=== PATIENT | female | born 1975 | race Caucasian/White ===

== ENCOUNTER 2017-10-22 08:56 | Inpatient (IN) | payer SELFPAY ==
[~2017-10-22] VITALS: Ht 157.5 cm; Wt 91.7 kg
[~2017-10-22 08:56] MED LIST: COUG100S2 PO; DUONSOL2 NEB; IBUP800T23 PO
[2017-10-22 08:57] VITALS: BP 140/88; PULSE 88; RESP 16; TEMP 98.7; O2SAT 98
--- NOTE | 2017-10-22 09:41 | PD ---
HPI Chief Complaint: Skin Problem Time Seen by Provider: 09:34 Travel History International Travel<30 days: No Contact w/Intl Traveler<30days: No Traveled to known affect area: No History of Present Illness HPI Diagnoses a 42-year-old female with a history of previous MRSA infections, presents today with complaints of right hand swelling, pain and redness starting 2 days ago. Patient states that she was scratched by her cat on . She states that yesterday it was slightly swollen however today it's almost doubled in size. Short's pain redness and swelling. There is no reported fevers, chills. The patient states she's had previous MRSA infections in the past. She denies any IVD drug use. She does give history that she did drink some alcohol as well as snorted a small amount of cocaine. She is unsure of her last tetanus immunization. PFSH Past Medical History Asthma: Yes Autoimmune Disease: No Anxiety: Yes Depression: Yes Cancer: Yes (CERVICAL,ENDOMETRIOSIS) Cardiovascular Problems: No COPD: Yes Diminished Hearing: No Hepatitis: Yes (c) Immune Disorder: No Musculoskeletal: Yes (CHRONIC LOW BACK PAIN) Psychiatric: Yes Reproductive: Yes Respiratory: Yes Integumentary: Yes (MRSA) ?: Not : 8 Para: 1 Miscarriage: 6 : 4 Dilation and Curettage (D&C): Yes Past Surgical History Abdominal Surgery: Yes (gall baldder removed) Cardiac Surgery: No Cholecystectomy: Yes Gynecologic Surgery: Yes Other Surgery: Yes Social History Alcohol Use: No Tobacco Use: Yes (1/2 PPD) Substance Use: Yes Allergies-Medications (Allergen,Severity, Reaction): Coded Allergies: Sulfa (Sulfonamide Antibiotics) (Unverified Allergy, Severe, SWELLING, ) morphine (Unverified Allergy, Severe, HIVES-SOB, 07/12/17) penicillin G (Unverified Allergy, Severe, SWELLING, 07/12/17) *MDRO Multi-Drug Resistant Organism (Verified Allergy, Unknown, 01/04/16) MRSA Reported Meds & Prescriptions Reported Meds & Active Scripts Active Robitussin (Guaifenesin) 100 Mg/5 Ml Syrp 5 Ml PO Q4H PRN 5 Days Ibuprofen 800 Mg Tab 800 Mg PO TID PRN 5 Days Reported Resp: Albuterol 2.5 Mg/Ipratropium 0.5 Mg (Albuterol/Ipratropium) 1 Amp Nebu 1 Amp NEB Review of Systems Except as stated in HPI: all other systems reviewed are Neg General / Constitutional: No: Fever, Chills HENT: No: Headaches, Lightheadedness, Neck Pain Cardiovascular: No: Chest Pain or Discomfort, Palpitations Respiratory: No: Cough, Shortness of Breath Gastrointestinal: No: Nausea, Vomiting, Abdominal Pain Genitourinary: No: Frequency, Dysuria Musculoskeletal: Positive: Edema (right hand), Pain Neurologic: No: Weakness, Dizziness, Headache Psychiatric: Positive: Substance Abuse Physical Exam Narrative GENERAL: Well-nourished, well-developed patient. SKIN: Focused skin assessment warm/dry. HEAD: Normocephalic/atraumatic. EYES: No scleral icterus. No injection or drainage. NECK: Supple, trachea midline. No JVD or lymphadenopathy. CARDIOVASCULAR: Regular rate and rhythm without murmurs, gallops, or rubs. RESPIRATORY: Breath sounds equal bilaterally. No accessory muscle use. GASTROINTESTINAL: Abdomen soft, non-tender, nondistended. MUSCULOSKELETAL: On examination patient's right hand, there is significant redness and swelling with lymphangitis. As limited range of motion secondary to the swelling and pain. Her no obvious lesions noted. There is no drainage. NEUROLOGICAL: Awake and alert. Cranial nerves II through XII intact. Motor grossly within normal limits. Five out of 5 muscle strength in all muscle groups. Normal speech. Data Data Last Documented VS Vital Signs Date Time Temp Pulse Resp B/P (MAP) Pulse Ox O2 Delivery O2 Flow Rate FiO2 10/22/17 13:57 84 17 113/73 (86) 98 Room Air 10/22/17 08:57 98.7 Orders Orders Basic Metabolic Panel (Bmp) (10/22/17 09:34) Complete Blood Count With Diff (10/22/17 09:34) Blood Culture (10/22/17 09:34) Iv Access Insert/Monitor (10/22/17 09:34) Ketorolac Inj (Toradol Inj) (10/22/17 09:45) Tetanus/Diphtheria Tox Adult (Tetanus/Di (10/22/17 09:45) Vancomycin Inj (Vancomycin Inj) (10/22/17 09:45) Hand, Limited (2vws) (10/22/17 09:34) Hydromorphone Pf Inj (Dilaudid Pf Inj) (10/22/17 11:15) Vancomycin Consult Pharmacy (Vancomycin (10/22/17 13:30) Vancomycin Inj (Vancomycin Inj) (10/22/17 22:00) Admit To Inpatient (10/22/17 ) Vital Signs (Adult) Q4H (10/22/17 13:23) Activity Oob Ad Tosin (10/22/17 13:23) Diet Regular Basic (10/22/17 Lunch) Sodium Chlor 0.9% 1000 Ml Inj (Ns 1000 M (10/22/17 13:23) Sodium Chloride 0.9% Flush (Ns Flush) (10/22/17 13:30) Sodium Chloride 0.9% Flush (Ns Flush) (10/22/17 21:00) Acetaminophen (Tylenol) (10/22/17 13:30) Comprehensive Metabolic Panel (10/23/17 06:00) Complete Blood Count With Diff (10/23/17 06:00) Scd Bilateral/Knee High CESAR.BID (10/22/17 13:23) Yayo Bilateral/Knee High CESAR.QSHIFT (10/22/17 13:23) Acetaminophen (Tylenol) (10/22/17 13:30) Naloxone Inj (Narcan Inj) (10/22/17 13:30) Docusate Sodium-Senna (Angelia-Colace) (10/22/17 21:00) Inpatient Certification (10/22/17 ) Ketorolac Inj (Toradol Inj) (10/22/17 16:00) Hydromorphone Pf Inj (Dilaudid Pf Inj) (10/22/17 13:30) Admit Order (Ed Use Only) (10/22/17 14:17) Labs Laboratory Tests Test 10/22/17 10:00 10/22/17 10:55 Blood Urea Nitrogen 12 MG/DL Creatinine 0.63 MG/DL Random Glucose 104 MG/DL Calcium Level 8.6 MG/DL Sodium Level 137 MEQ/L Potassium Level 4.0 MEQ/L Chloride Level 108 MEQ/L Carbon Dioxide Level 20.4 MEQ/L Anion Gap 9 MEQ/L Estimat Glomerular Filtration Rate 103 ML/MIN White Blood Count 13.7 TH/MM3 Red Blood Count 4.14 MIL/MM3 Hemoglobin 12.7 GM/DL Hematocrit 37.7 % Mean Corpuscular Volume 91.1 FL Mean Corpuscular Hemoglobin 30.7 PG Mean Corpuscular Hemoglobin Concent 33.8 % Red Cell Distribution Width 14.7 % Platelet Count 289 TH/MM3 Mean Platelet Volume 9.0 FL Neutrophils (%) (Auto) 86.4 % Lymphocytes (%) (Auto) 8.2 % Monocytes (%) (Auto) 4.7 % Eosinophils (%) (Auto) 0.2 % Basophils (%) (Auto) 0.5 % Neutrophils # (Auto) 11.8 TH/MM3 Lymphocytes # (Auto) 1.1 TH/MM3 Monocytes # (Auto) 0.6 TH/MM3 Eosinophils # (Auto) 0.0 TH/MM3 Basophils # (Auto) 0.1 TH/MM3 CBC Comment DIFF FINAL Differential Comment MDM Medical Decision Making Medical Screen Exam Complete: Yes Emergency Medical Condition: Yes Differential Diagnosis Cellulitis versus contusion versus foreign body versus fracture Narrative Course Review 2-year-old female history of previous MRSA infections, presents today with complaints of right hand swelling pain and redness running up her right arm. The patient is afebrile. White blood cell count is elevated. The patient appears to have significant cellulitis of the dorsum of her right hand. She's been given 1 g of IV vancomycin. She'll be admitted to the hospital for IVD antibiotics. [facility] Diagnosis Primary Impression: Cellulitis of right hand Additional Impressions: Leukocytosis History of MRSA infection Admitting Information Admitting Physician Requests: Admit Feroz Evans MD Oct 22, 2017 09:41
[2017-10-22] MEDS ORDERED: KETOROLAC TROMETHAMINE 30 MG/ML (IVP) VIAL IVP ONE (09:45)
[2017-10-22] MEDS ORDERED: VANCOMYCIN INJ 1,000 MG in SODIUM CHLOR 0.9% 250 ML INJ 250 ML IV ONE (09:45)
[2017-10-22] MEDS ORDERED: TETANUS/DIPHTHERIA TOXOID ADULT 0.5 ML VIAL IM ONE (09:45)
--- NOTE | 2017-10-22 10:39 | RADRPT ---
EXAM DATE/TIME: 10/22/2017 09:47 [facility] COMPARISON: No previous studies available for comparison. INDICATIONS : Cellulitis, swelling due to scratched by cat night. MEDICAL HISTORY : None. SURGICAL HISTORY : None. ENCOUNTER: Initial ACUITY: 2 days PAIN SCORE: 5/10 LOCATION: Right Between first and second metacarpal FINDINGS: Two view examination of the right hand demonstrates no dislocation, or fracture. The joint spaces a re maintained. Bony mineralization is normal. CONCLUSION: 1. Soft tissue swelling on dorsum of hand. No acute bony abnormality. Constantine Staton MD on October 22, 2017 at 10:37 Board Certified Radiologist. This report was verified electronically.
[2017-10-22 10:50] LABS: BICARBONATE 20.4 MEQ/L (21.0-32.0)
[2017-10-22 11:07] LABS: AUTOMATED NEUTROPHIL # 11.8 TH/MM3 (1.8-7.7); BASOPHIL # 0.1 TH/MM3 (0-0.2); BASOPHIL % 0.5 % (0.0-2.0); EOSINOPHIL % 0.2 % (0.0-4.0); HEMATOCRIT 37.7 % (35.0-46.0); HEMO FLAGS DIFF FINAL; LYMPH % 8.2 % (9.0-44.0); LYMPHOCYTE # 1.1 TH/MM3 (1.0-4.8); MEAN CELL VOLUME 91.1 FL (80.0-100.0); MEAN CORPUSCULAR HEMOGLOBIN 30.7 PG (27.0-34.0); MEAN CORPUSCULAR HGB CONC 33.8 % (32.0-36.0); MONO % 4.7 % (0.0-8.0); NEUT % 86.4 % (16.0-70.0); PLATELET COUNT 289 TH/MM3 (150-450); RED BLOOD COUNT 4.14 MIL/MM3 (4.00-5.30); RED CELL DISTRIBUTION WIDTH 14.7 % (11.6-17.2); WHITE BLOOD COUNT 13.7 TH/MM3 (4.0-11.0)
[2017-10-22] MEDS ORDERED: HYDROmorphone HCL PF 1 MG/ML VIAL IV PUSH ONE ×2 (11:15→13:30)
[2017-10-22] MEDS ORDERED: MIDAZOLAM HCL 2 MG/2 ML VIAL IV ONE ×2 (12:00→23:30)
[2017-10-22] MEDS ORDERED: SUCCINYLCHOLINE CHLORIDE 100 MG/5 ML SYRINGE IV PUSH ONE (12:00)
[2017-10-22] MEDS ORDERED: PROPOFOL 200 MG/20 ML AMP IV ONE (12:00)
[2017-10-22] MEDS ORDERED: LIDOCAINE HCL 1% PF 5 ML SYRINGE OTHER ONE (12:00)
[2017-10-22] MEDS ORDERED: ACETAMINOPHEN 325 MG TAB PO PRN ×2 (13:30)
[2017-10-22] MEDS ORDERED: SODIUM CHLORIDE 0.9% FLUSH 10 ML FLUSH IV FLUSH PRN (13:30)
[2017-10-22] MEDS ORDERED: NALOXONE HCL 0.4 MG/ML AMP IV PUSH PRN (13:30)
[2017-10-22] MEDS ORDERED: Vancomycin Consult Pharmacy 1 EA OTHER SCH (13:30)
[2017-10-22 13:57] VITALS: BP 113/73; PULSE 84; RESP 17; O2SAT 98
[2017-10-22 15:12] VITALS: BP 119/63; PULSE 55; RESP 15; O2SAT 97
[2017-10-22] MEDS: SODIUM CHLOR 0.9% 1000 ML INJ 1,000 ML IV SCH ×2 (15:12→23:23)
[2017-10-22] MEDS ORDERED: ACETAMINOPHEN/HYDROcodone 325 MG/10 MG TAB PO PRN (15:15)
--- NOTE | 2017-10-22 15:56 | HHI.HP ---
[facility] London Cary M.D. Admission Diagnosis right hand cellulitis, leukocytosis Diagnoses: Chief Complaint: Cat scratches/ bites Travel History International Travel<30 Days: No Contact w/Intl Traveler <30 Da: No Traveled to Known Affected Are: No History of Present Illness The patient is a 42-year-old female with a past medical history of hepatitis C and staph infections who is presenting to the hospital with a swollen and painful right hand. The patient says that she has taken in a feral cat a few weeks ago and on she was scratched several times. The patient endorses having been bitten and scratched by the cat several times before. She said that her right hand swelled up at the site of the biggest scratch and the swelling started to spread to her fingers and up her arm. She also noted streaking of redness going up her right arm. She says the pain is quite severe in nature. She currently endorses numbness in her fingers of the right hand. The patient says this morning she woke up vomiting. She experienced shaking chills. The patient also mentions that her legs have been swelling up lately and she took a brief course of Lasix. She says her stomach tends to swell as well. She also mentions that she was recently exposed to hepatitis A, though she says she did receive vaccinations for that. She says she got out of senior care in November, where she had a prolonged kidney infection. She says her normal blood pressure is around 90/60. Review of Systems Except as stated in HPI: all other systems reviewed are Neg Past Family Social History Past Medical History Hepatitis C virus Multiple infections including MRSA to the face, and infection of the left armpit , plus an infection on the right side of her buttocks Lower extremity edema Liver tumor Kidney infection Allergies: Coded Allergies: Sulfa (Sulfonamide Antibiotics) (Unverified Allergy, Severe, SWELLING, ) morphine (Unverified Allergy, Severe, HIVES-SOB, 07/12/17) penicillin G (Unverified Allergy, Severe, SWELLING, 07/12/17) *MDRO Multi-Drug Resistant Organism (Verified Allergy, Unknown, 01/04/16) MRSA Active Ordered Medications Current Medications Medications (Trade) Dose Ordered Sig/Brando Route Start Time Stop Time Status Last Admin Pharmacy Profile Note 0 ml @ 0 mls/hr UNSCH OTHER 10/22/17 13:30 Vancomycin HCl 1250 mg/Sodium Chloride 262.5 ml @ 262.5 mls/ hr Q12H IV 10/22/17 22:00 UNV Sodium Chloride 1,000 ml @ 100 mls/hr Q10H IV 10/22/17 13:23 10/22/17 15:12 (NS Flush) 2 ml UNSCH PRN IV FLUSH 10/22/17 13:30 (NS Flush) 2 ml BID IV FLUSH 10/22/17 21:00 (Tylenol) 650 mg Q4H PRN PO 10/22/17 13:30 (Tylenol) 650 mg Q6H PRN PO 10/22/17 13:30 (Narcan Inj) 0.4 mg UNSCH PRN IV PUSH 10/22/17 13:30 (Angelia-Colace) 1 tab BID PO 10/22/17 21:00 (Toradol Inj) 30 mg Q6H IV PUSH 10/22/17 16:00 10/24/17 10:01 (Roland 10-325 Mg) 1 tab Q4H PRN PO 10/22/17 15:15 UNV Family History CHF Breast cancer Liver cancer Social History The patient smokes a pack daily. She drinks one or 2 glasses of wine a week. She says she quit using IV drugs years ago. She said she recently took a snort of cocaine. Physical Exam Vital Signs Vital Signs Date Time Temp Pulse Resp B/P (MAP) Pulse Ox O2 Delivery O2 Flow Rate FiO2 10/22/17 15:12 55 15 119/63 (81) 97 Room Air 10/22/17 13:57 84 17 113/73 (86) 98 Room Air 10/22/17 11:55 16 10/22/17 11:25 16 10/22/17 08:57 98.7 88 16 140/88 (105) 98 Physical Exam GENERAL: Well-nourished, well-developed patient. SKIN: Focused skin assessment warm/dry. HEAD: Normocephalic/atraumatic. EYES: No scleral icterus. No injection or drainage. NECK: Supple, trachea midline. No JVD or lymphadenopathy. CARDIOVASCULAR: Regular rate and rhythm without murmurs, gallops, or rubs. RESPIRATORY: Breath sounds equal bilaterally. No accessory muscle use. GASTROINTESTINAL: Abdomen soft, non-tender, nondistended. MUSCULOSKELETAL: There is significant redness and swelling in the right hand with lymphangitis. There is limited range of motion secondary to the swelling and pain. There is numbness reported over her fingertips. There is no drainage. Scratch and bite winston noted. NEUROLOGICAL: Awake and alert. Cranial nerves II through XII intact. Motor grossly within normal limits. Five out of 5 muscle strength in all muscle groups. Normal speech. PSYCH: Mood and affect appropriate. Laboratory Laboratory Tests Test 10/22/17 10:00 10/22/17 10:55 Blood Urea Nitrogen 12 Creatinine 0.63 Random Glucose 104 Calcium Level 8.6 Sodium Level 137 Potassium Level 4.0 Chloride Level 108 Carbon Dioxide Level 20.4 Anion Gap 9 Estimat Glomerular Filtration Rate 103 White Blood Count 13.7 Red Blood Count 4.14 Hemoglobin 12.7 Hematocrit 37.7 Mean Corpuscular Volume 91.1 Mean Corpuscular Hemoglobin 30.7 Mean Corpuscular Hemoglobin Concent 33.8 Red Cell Distribution Width 14.7 Platelet Count 289 Mean Platelet Volume 9.0 Neutrophils (%) (Auto) 86.4 Lymphocytes (%) (Auto) 8.2 Monocytes (%) (Auto) 4.7 Eosinophils (%) (Auto) 0.2 Basophils (%) (Auto) 0.5 Neutrophils # (Auto) 11.8 Lymphocytes # (Auto) 1.1 Monocytes # (Auto) 0.6 Eosinophils # (Auto) 0.0 Basophils # (Auto) 0.1 CBC Comment DIFF FINAL Differential Comment Date/Time Source Procedure Growth Status 10/22/17 10:00 Blood Peripheral Aerobic Blood Culture Pending Received 10/22/17 10:00 Blood Peripheral Anaerobic Blood Culture Pending Received Result Diagram: 10/22/17 1055 10/22/17 1000 Imaging Last Impressions Hand X-Ray 10/22/17 0964 Signed Impressions: Service Date/Time: Sunday, October 22, 2017 09:47 - CONCLUSION: 1. Soft tissue swelling on dorsum of hand. No acute bony abnormality. MD Anais Magañai VTE Risk Assessment Kelvin VTE Risk Assessment: Mod/High Risk (score >= 2) Caprini Risk Assessment Model Point Value = 1 Point Value = 2 Point Value = 3 Point Value = 5 Age 41-60 Minor surgery BMI > 25 kg/m2 Swollen legs Varicose veins or History of unexplained or recurrent spontaneous Oral contraceptives or hormone replacement Sepsis (< 1 month) Serious lung disease, including pneumonia (< 1 month) Abnormal pulmonary function Acute myocardial infarction Congestive heart failure (< 1 month) History of inflammatory bowel disease Medical patient at bed rest Age 61-74 Arthroscopic surgery Major open surgery (> 45 min) Laparoscopic surgery (> 45 min) Malignancy Confined to bed (> 72 hours) Immobilizing plaster cast Central venous access Age >= 75 History of VTE Family history of VTE Factor V Leiden Prothrombin [id number] Lupus anticoagulant Anticardiolipin antibodies Elevated serum homocysteine Heparin-induced thrombocytopenia Other congenital or acquired thrombophilia Stroke (< 1 month) Elective arthroplasty Hip, pelvis, or leg fracture Acute spinal cord injury (< 1 month) Prophylaxis Regimen Total Risk Factor Score Risk Level Prophylaxis Regimen 0-1 Low Early ambulation 2 Moderate Order ONE of the following: *Sequential Compression Device (SCD) *Heparin 5000 units SQ BID 3-4 Higher Order ONE of the following medications: *Heparin 5000 units SQ TID *Enoxaparin/Lovenox 40 mg SQ daily (WT < 150 kg, CrCl > 30 mL/min) *Enoxaparin/Lovenox 30 mg SQ daily (WT < 150 kg, CrCl > 10-29 mL/min) *Enoxaparin/Lovenox 30 mg SQ BID (WT < 150 kg, CrCl > 30 mL/min) AND/OR *Sequential Compression Device (SCD) 5 or more Highest Order ONE of the following medications: *Heparin 5000 units SQ TID (Preferred with Epidurals) *Enoxaparin/Lovenox 40 mg SQ daily (WT < 150 kg, CrCl > 30 mL/min) *Enoxaparin/Lovenox 30 mg SQ daily (WT < 150 kg, CrCl > 10-29 mL/min) *Enoxaparin/Lovenox 30 mg SQ BID (WT < 150 kg, CrCl > 30 mL/min) AND *Sequential Compression Device (SCD) Assessment and Plan Assessment and Plan Right hand infection S/t cat bites and scratches. The right hand and distal forearm are swollen and tender. There is lymphangitis noted. Hand x ray with no obvious bony involvement. She was started on vancomycin in the ED. She has leukocytosis. - continue vancomycin. Add IV Levaquin and Flagyl to cover for the animal bite. - obtain US of the right hand and distal forearm. - hand surgery consult requested. - blood cultures x 2. - IVFs. - pain control with a bowel regimen. Standing Toradol ordered. HCV Untreated. 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 She also mentions she was recently exposed to hepatitis A, though was vaccinated. - check LFTs, hepatitis panel. - outpt GI follow-up. Drug use The pt says she has not used IV drugs in years but recently took a snort of cocaine. - cessation instruction. Lower extremity edema The pt recently completed a course of Lasix. Seems resolved. May be s/t her underlying liver disease. - check LFTs. - Lasix as needed. Smoking The pt smokes 1 PPD. - cessation instruction. - nicotine patch. PPx: SCDs Code Status Full Discussed Condition With Pt, Dr. Evans, nurse Physician Certification 2 Midnight Certification Type: Admission for Inpatient Services Order for Inpatient Services The services are ordered in accordance with Medicare regulations or non- Medicare payer requirements, as applicable. In the case of services not specified as inpatient-only, they are appropriately provided as inpatient services in accordance with the 2-midnight benchmark. Estimated LOS (days): 2 days is the estimated time the patient will need to remain in the hospital, assuming treatment plan goals are met and no additional complications. Post-Hospital Plan: Home Sravan Lagunas DO Oct 22, 2017 15:56
[2017-10-22 16:00] VITALS: BP 126/70; PULSE 67; RESP 17; TEMP 96.9; O2SAT 100
[2017-10-22] MEDS: metroNIDAZOLE 500 MG INJ 100 ML IV SCH (16:39)
[2017-10-22] MEDS: LEVOFLOXACIN 500 MG PREMIX INJ 100 ML IV SCH (16:39)
[2017-10-22] MEDS: KETOROLAC TROMETHAMINE 30 MG/ML (IVP) VIAL IV PUSH SCH ×2 (16:40→22:08)
[2017-10-22] MEDS: NICOTINE 21 MG/24 HR PATCH T-DERMAL SCH (16:41)
[2017-10-22 17:06] LABS: BACTERIA, URINE OCC /hpf; BLOOD, URINE NEG (NEG); COMMENT (UR) CULT NOT INDICATED; CULTURE IF INDICATED CULT NOT INDICATED; GLUCOSE,URINE NEG (NEG); KETONE, URINE NEG (NEG); MUCUS URINE FEW /lpf (OCC); NITRITE,URINE NEG (NEG); SQUAMOUS EPITHELIAL CELL URINE 8 /hpf (0-5); URINE COLOR YELLOW (YELLW/STRAW)
--- NOTE | 2017-10-22 17:49 | RADRPT ---
EXAM DATE/TIME: 10/22/2017 16:45 [facility] COMPARISON: No previous studies available for comparison. INDICATIONS : Abscess. MEDICAL HISTORY : Hard of hearing right ear. COPD. Asthma. Cervical cancer. Diabetes. MRSA. SURGICAL HISTORY : Cholecystectomy. Removed endometriosis. Removed cervical cancer. ENCOUNTER: Initial ACUITY: 2 days PAIN SCORE: 6/10 LOCATION: Right hand/forearm. AREA EVALUATED: Right hand/distal forearm. FINDINGS: Ultrasound examination of the dorsum of the hand demonstrates thickened soft tissues with moderate hy peremia on color Doppler. No drainable fluid collections seen. CONCLUSION: No drainable fluid collection seen. Jadon Wyatt MD on October 22, 2017 at 17:46 Board Certified Radiologist. This report was verified electronically.
[2017-10-22 20:00] VITALS: BP 123/62; PULSE 77; RESP 20; TEMP 97.9; O2SAT 98
[2017-10-22] MEDS ORDERED: LACTATED RINGER'S 1000 ML IV PRN (20:00)
--- NOTE | 2017-10-22 20:11 | MB ---
cc: TONYA FLOYD DATE OF CONSULTATION 10/22/17 REASON FOR CONSULTATION Right hand infection. HISTORY OF PRESENT ILLNESS The patient is a 42-year-old female, right-hand dominant with history of hepatitis C and MRSA, presented to the hospital with pain and swelling involving the right hand for the past 2 days. The patient states she had a cat scratch and noticed swelling and pain over the dorsal aspect of the hand which has been gradually worsening. The patient denies any history of IV drug abuse at present time. Denies any fever. She also complains of worsening symptoms with range of motion of the fingers especially the index finger. Denies any drainage. The patient also complains of tingling sensation over the fingertips. The patient gives history of multiple MRSA infections. PAST MEDICAL HISTORY Significant for hepatitis C and MRSA and kidney infection. PHYSICAL EXAMINATION GENERAL: The patient is alert, oriented x3. DIRECTED EXAMINATION: Examination of right hand reveals multiple healed scratches, swelling of the dorsal aspect of the hand associated with erythema noted. This extends along the dorsal aspect of the MP joint of the index and middle fingers. Tenderness noted over the dorsal aspect of the hand, more so over the index finger metacarpal neck region. No drainage noted. Range of motion of the finger is limited and painful. She has intact sensation distally. She has intact distal capillary refill. She had x-rays of the right hand which shows evidence of soft tissue swelling. The patient also had ultrasound of the right hand. No drainable fluid collection. There is evidence of thickened soft tissues with moderate hyperemia on color Doppler. ASSESSMENT A 42-year-old female with cat scratch to the dorsal aspect of the right hand. PLAN The plan will be to keep the patient n.p.o., take her for incision and drainage right hand infection. Will continue with limb elevation and antibiotics. Tonya Floyd MD SE/AURELIO /7:16 PM /8:07 PM GINA
[2017-10-22] MEDS: SODIUM CHLORIDE 0.9% FLUSH 10 ML FLUSH IV FLUSH SCH (20:36)
[2017-10-22] MEDS: VANCOMYCIN INJ 1,250 MG in SODIUM CHLOR 0.9% 250 ML INJ 250 ML IV SCH (20:36)
[2017-10-22] MEDS: DOCUSATE SODIUM 50 MG/SENNA 8.6 MG TAB PO SCH (20:37)
[2017-10-22] MEDS ORDERED: *HYDROmorphone PF 1 MG VIAL PERIprocedural Use ONLY ONE (23:28)
[2017-10-22] MEDS ORDERED: FAMOTIDINE 20 MG/2 ML VIAL IV ONE (23:30)
[2017-10-22] MEDS ORDERED: HYDROmorphone HCL PF 0.5 MG/0.5 ML SYRINGE IV SCH (23:30)
--- NOTE | 2017-10-23 00:47 | PD.OP ---
Operative Report Preoperative Diagnosis: (1) Abscess of dorsum of right hand Postoperative Diagnosis: (1) Abscess of dorsum of right hand Procedure: Incision and drainage abscess right hand dorsum Anesthesia: general Surgeon: Bay Silva Cost Clerk(s): aric Operation and Findings: impending abscess formation subfacial compartment involving the extensor tendons of the index finger dorsum right hand Bay Silva MD Oct 23, 2017 00:47
[2017-10-23] MEDS ORDERED: DO NOT ADM ANY ANTICOAGULANT DRUGS PRN (01:00)
[2017-10-23] MEDS ORDERED: *HYDROmorphone PF 1 MG VIAL PERIprocedural Use ONLY ONE (01:04)
[2017-10-23] MEDS ORDERED: HYDROmorphone HCL PF 1 MG/ML VIAL IV PRN ×2 (01:15)
[2017-10-23] MEDS ORDERED: HYDROmorphone HCL PF 1 MG/ML VIAL IV PUSH ONE (02:45)
[2017-10-23] MEDS: ONDANSETRON HCL 4 MG/2 ML VIAL IV PUSH PRN ×4 (02:48→21:37)
[2017-10-23] MEDS: metroNIDAZOLE 500 MG INJ 100 ML IV SCH ×3 (02:49→18:21)
[2017-10-23 04:00] VITALS: BP 94/53; PULSE 76; RESP 20; TEMP 96.4; O2SAT 95
[2017-10-23] MEDS: KETOROLAC TROMETHAMINE 30 MG/ML (IVP) VIAL IV PUSH SCH ×4 (04:51→21:31)
[2017-10-23] MEDS ORDERED: GENTAMICIN SULFATE 80 MG/2 ML VIAL IRRIGATION ONE (05:04)
[2017-10-23] MEDS ORDERED: SODIUM CHLORIDE 0.9% IRRIGATION SCH (05:15)
[2017-10-23] MEDS ORDERED: GENTAMICIN IRRIGATION SCH (05:15)
[2017-10-23] MEDS ORDERED: IRR IRRIGATION SCH (05:15)
--- NOTE | 2017-10-23 05:19 | MP ---
cc: TONYA FLOYD MD DATE OF SURGERY: 10/23/2017 PREOPERATIVE DIAGNOSIS: Abscess right hand dorsum POSTOPERATIVE DIAGNOSIS Abscess right hand dorsum PROCEDURE Incision and drainage right hand abscess. SURGEON Dr. Floyd. ANESTHESIA General ESTIMATED BLOOD LOSS Minimal TOURNIQUET TIME 13 minutes at 250 mmHg. SPECIMEN: Specimen was sent for culture and sensitivity. DISPOSITION: PACU stable. INDICATIONS FOR PROCEDURE: The patient is a 42-year-old female who presented with complaints of pain and swelling involving the right hand of two days duration. The patient states she had a cat scratch over the right hand dorsum and has worsening symptoms. On examination she had swelling over the dorsal aspect of the hand. She also had associated redness and streaking lymphangitis proximally. Range of motion of index and middle fingers were limited and painful. Most of the pain was located over the second index metacarpal neck region. X-rays were negative for radiopaque foreign body. She had an elevated white count. The patient was consented for incision and drainage of right hand abscess. The patient was explained risks and benefits of the procedure. DESCRIPTION OF PROCEDURE: The patient was brought to the operating room under general anesthesia. The right upper extremity was thoroughly prepped and draped. Incision site was marked in a longitudinal fashion over the dorsal aspect of the hand corresponding to the index finger extensor tendon measuring about 3-4 cm. After limb elevation tourniquet inflated to 50 mmHg. Incision was then made over the proposed incision site. Soft tissue dissection was carried out. On exposure, extensive inflammatory tissue was noted in the region. On further exploration there was evidence of tenosynovitis around the extensor tendon especially involving the extensor indicis proprius tendon. Material was sent for culture and sensitivity. Excisional debridement of necrotic and inflammatory tissue was carried out. No evidence of involvement of the MP joint noted. No evidence of involvement of extensor tendons, middle and ring fingers were noted. Thorough wash was given using normal saline mixed with irrigant and hydrogen peroxide. Tourniquet was deflated. Total tourniquet time was 13 minutes. She had good distal circulation. Bleeding points were cauterized with bipolar cautery. Packing of the wounds were carried out with Iodoform packing material. The wound was then loosely reapproximated using 4-0 nylon in a horizontal mattress interrupted fashion. Bulky hand dressing was applied which was held in place by Sof-wripl and bias hand wrap. She had good distal circulation at the end of the procedure. She was recovered and sent to recovery in stable condition. She will keep the limb elevated and continue with IV antibiotics and will change the packing tomorrow. Tonya Floyd MD SE/SHASHANK /12:55 AM /4:27 AM
[2017-10-23 07:46] LABS: AUTOMATED NEUTROPHIL # 6.5 TH/MM3 (1.8-7.7); BASOPHIL % 0.4 % (0.0-2.0); EOSINOPHIL # 0.1 TH/MM3 (0-0.4); HEMATOCRIT 35.7 % (35.0-46.0); HEMO FLAGS DIFF FINAL; LYMPH % 14.9 % (9.0-44.0); LYMPHOCYTE # 1.3 TH/MM3 (1.0-4.8); MEAN CELL VOLUME 92.7 FL (80.0-100.0); MEAN CORPUSCULAR HEMOGLOBIN 30.9 PG (27.0-34.0); MEAN CORPUSCULAR HGB CONC 33.4 % (32.0-36.0); MONO % 5.9 % (0.0-8.0); NEUT % 77.8 % (16.0-70.0); PLATELET COUNT 249 TH/MM3 (150-450); RED BLOOD COUNT 3.85 MIL/MM3 (4.00-5.30); RED CELL DISTRIBUTION WIDTH 14.8 % (11.6-17.2); WHITE BLOOD COUNT 8.4 TH/MM3 (4.0-11.0)
[2017-10-23 08:00] VITALS: BP 100/58; PULSE 79; RESP 18; TEMP 97.4; O2SAT 97
[2017-10-23 08:12] LABS: ANION GAP 9 MEQ/L (5-15); AST (GOT) 19 U/L (15-37); BICARBONATE 23.2 MEQ/L (21.0-32.0); BLOOD UREA NITROGEN 11 MG/DL (7-18); CHLORIDE 107 MEQ/L (98-107); GLOMERULAR FILTRATION RATE 101 ML/MIN (>89); POTASSIUM 3.5 MEQ/L (3.5-5.1); SODIUM (NA) 139 MEQ/L (136-145)
[2017-10-23 08:16] LABS: ALKALINE PHOSPHATASE 70 U/L (45-117); ALT (GPT) 29 U/L (10-53); TOTAL BILIRUBIN ADULT 0.3 MG/DL (0.2-1.0)
[2017-10-23] MEDS: REMOVE OLD PATCH T-DERMAL SCH (08:23)
[2017-10-23] MEDS: NICOTINE 21 MG/24 HR PATCH T-DERMAL SCH (08:23)
[2017-10-23] MEDS: DOCUSATE SODIUM 50 MG/SENNA 8.6 MG TAB PO SCH ×2 (08:24→20:02)
[2017-10-23] MEDS: SODIUM CHLORIDE 0.9% FLUSH 10 ML FLUSH IV FLUSH SCH ×2 (08:24→20:01)
[2017-10-23] MEDS ORDERED: INFLUENZA VIRUS VACCINE (QUADRIVALENT) 0.5 ML SYR IM ONE (10:00)
[2017-10-23] MEDS ORDERED: PNEUMOCOCCAL POLYVALENT INJ 25 MCG/0.5 ML SYR IM ONE (10:00)
[2017-10-23] MEDS: VANCOMYCIN INJ 1,250 MG in SODIUM CHLOR 0.9% 250 ML INJ 250 ML IV SCH ×2 (10:26→20:06)
[2017-10-23 12:00] VITALS: BP 92/55; PULSE 65; RESP 16; TEMP 97.3; O2SAT 95
[2017-10-23] MEDS: SODIUM CHLOR 0.9% 1000 ML INJ 1,000 ML IV SCH ×2 (13:23→19:23)
--- NOTE | 2017-10-23 14:01 | HHI.PR ---
Subjective Remarks Pt seen around noon. Had just seen hand sx who had removed dressing. Pt was having pain from this and had also just received some pain meds. otherwise denied any CP/SOB/N/V Objective Vitals Vital Signs Date Time Temp Pulse Resp B/P (MAP) Pulse Ox O2 Delivery O2 Flow Rate FiO2 10/23/17 12:00 97.3 65 16 92/55 (67) 95 10/23/17 08:00 97.4 79 18 100/58 (72) 97 10/23/17 05:51 18 10/23/17 04:00 96.4 76 20 94/53 (67) 95 10/23/17 01:45 87 20 112/74 (87) 98 Room Air 10/23/17 01:30 88 20 102/67 (79) 97 Room Air 10/23/17 01:15 90 28 124/73 (90) 97 Room Air 10/23/17 01:00 95 27 146/74 (98) 96 Room Air 10/23/17 00:50 98.1 99 20 125/78 (94) 96 Room Air 10/22/17 23:08 98.7 75 20 123/80 (94) 98 10/22/17 20:33 18 10/22/17 20:00 97.9 77 20 123/62 (82) 98 10/22/17 16:25 10/22/17 16:00 96.9 67 17 126/70 (88) 100 10/22/17 15:12 55 15 119/63 (81) 97 Room Air 10/22/17 13:57 84 17 113/73 (86) 98 Room Air I/O 10/22/17 10/22/17 10/22/17 10/23/17 10/23/17 10/23/17 07:00 15:00 23:00 07:00 15:00 23:00 Intake Total 250 ml 544 ml 440 ml 862.5 ml Output Total 10 ml Balance 250 ml 544 ml 430 ml 862.5 ml Intake Oral 444 ml 240 ml IV Total 250 ml 100 ml 200 ml 862.5 ml Output Estimated Blood Loss 10 ml # Voids 2 2 Result Diagram: 10/23/17 0650 10/23/17 0650 Imaging Last Impressions Hand X-Ray 10/22/17 0934 Signed Impressions: Service Date/Time: Sunday, October 22, 2017 09:47 - CONCLUSION: 1. Soft tissue swelling on dorsum of hand. No acute bony abnormality. Constantine Staton MD Soft Tissue Ultrasound 10/22/17 0000 Signed Impressions: Service Date/Time: Sunday, October 22, 2017 16:45 - CONCLUSION: No drainable fluid collection seen. Jadon Wyatt MD Objective Remarks GENERAL: standing up CARDIOVASCULAR: Regular rate and rhythm without murmurs RESPIRATORY: Breath sounds equal bilaterally. No accessory muscle use. GASTROINTESTINAL: Abdomen soft, non-tender, nondistended. MUSCULOSKELETAL: dressing in place, d/c/i NEUROLOGICAL: Awake and alert. was ambulating towards restroom PSYCH: Mood and affect appropriate. A/P Assessment and Plan Right hand infection S/p cat bites and scratches. Hand x ray with no obvious bony involvement.s/p vancomycin in the ED. - continue vancomycin, Levaquin and Flagyl - Hand sx following, s/p I&D hand abscess. Management per hand sx. - blood cultures neg x 1, wound cx pending. - IVFs. - pain control with a bowel regimen. HCV Untreated. 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 She also mentions she was recently exposed to hepatitis A, though was vaccinated. - LFTs wnl, hepatitis panel pending. - outpt GI follow-up. Drug use The pt says she has not used IV drugs in years but recently took a snort of cocaine. - has been counseled on cessation Lower extremity edema The pt recently completed a course of Lasix. Seems resolved. May be s/t her underlying liver disease. - Lasix as needed. Smoking The pt smokes 1 PPD. - counseled on smoking cessation - nicotine patch. Discharge Planning awaiting final blood and wound cx. need hand sx clearance Kristine Arango MD Oct 23, 2017 14:01
[2017-10-23 16:00] VITALS: BP 94/50; PULSE 81; RESP 17; TEMP 98.3; O2SAT 96
[2017-10-23] MEDS: LEVOFLOXACIN 500 MG PREMIX INJ 100 ML IV SCH (16:42)
[2017-10-23 20:00] VITALS: BP 120/59; PULSE 74; RESP 18; TEMP 99.2; O2SAT 91
[2017-10-24] VITALS (7 sets, daily range): BP systolic 106–142; BP diastolic 56–79; PULSE 66–74; RESP 17–20; TEMP 97.3–98.5; O2SAT 94–100
[2017-10-24] MEDS: metroNIDAZOLE 500 MG INJ 100 ML IV SCH ×3 (00:07→16:12)
[2017-10-24] MEDS: KETOROLAC TROMETHAMINE 30 MG/ML (IVP) VIAL IV PUSH SCH ×2 (04:47→10:09)
[2017-10-24] MEDS: SODIUM CHLOR 0.9% 1000 ML INJ 1,000 ML IV SCH ×2 (04:47→14:56)
[2017-10-24] MEDS: NICOTINE 21 MG/24 HR PATCH T-DERMAL SCH (08:10)
[2017-10-24] MEDS: DOCUSATE SODIUM 50 MG/SENNA 8.6 MG TAB PO SCH ×2 (08:10→22:25)
[2017-10-24] MEDS: REMOVE OLD PATCH T-DERMAL SCH (08:10)
[2017-10-24] MEDS: SODIUM CHLORIDE 0.9% FLUSH 10 ML FLUSH IV FLUSH SCH ×2 (08:10→22:25)
[2017-10-24] MEDS ORDERED: PHARMACY ORDERED LAB ONE (09:45)
[2017-10-24] MEDS ORDERED: MAGNESIUM HYDROXIDE SUSP 30 ML CUP PO PRN (11:00)
[2017-10-24] MEDS ORDERED: BISACODYL 10 MG SUPP RECTAL PRN (11:00)
[2017-10-24] MEDS: ONDANSETRON HCL 4 MG/2 ML VIAL IV PUSH PRN (11:20)
--- NOTE | 2017-10-24 11:29 | HHI.PR ---
Subjective Remarks still in pain in the right arm also feeling distended in abd with discomfort +gaz , no bm Objective Vitals Vital Signs Date Time Temp Pulse Resp B/P (MAP) Pulse Ox O2 Delivery O2 Flow Rate FiO2 10/24/17 08:00 98.2 74 18 142/79 (100) 98 10/24/17 06:35 18 10/24/17 06:35 18 10/24/17 04:00 97.3 74 18 108/56 (73) 96 10/24/17 00:00 97.9 67 17 106/57 (73) 94 10/23/17 20:00 99.2 74 18 120/59 (79) 91 10/23/17 16:00 98.3 81 17 94/50 (65) 96 10/23/17 12:00 97.3 65 16 92/55 (67) 95 I/O 10/23/17 10/23/17 10/23/17 10/24/17 10/24/17 10/24/17 07:00 15:00 23:00 07:00 15:00 23:00 Intake Total 440 ml 862.5 ml 2020 ml 240 ml Output Total 10 ml Balance 430 ml 862.5 ml 2020 ml 240 ml Intake Oral 240 ml 1920 ml 240 ml IV Total 200 ml 862.5 ml 100 ml Output Estimated Blood Loss 10 ml # Voids 2 3 3 # Bowel Movements 0 Result Diagram: 10/23/17 0650 10/23/17 0650 Objective Remarks GENERAL: This is a well-nourished, well-developed patient, in no apparent distress. CARDIOVASCULAR: Regular rate and rhythm without murmurs, gallops, or rubs. RESPIRATORY: Clear to auscultation. Breath sounds equal bilaterally. No wheezes , rales, or rhonchi. GASTROINTESTINAL: Abdomen soft, tympanic to percussion, mild tender, nondistended. Normal active bowel sounds MUSCULOSKELETAL: RUE lifted in sling , Extremities without clubbing, cyanosis, or edema. NEURO: Alert & Oriented x4 to person, place, time, situation. Moves all ext x4 A/P Assessment and Plan Right hand infection S/p cat bites and scratches. Hand x ray with no obvious bony involvement.s/p vancomycin in the ED. - continue vancomycin, Levaquin and Flagyl - Hand sx following, s/p I&D hand abscess. Management per hand sx. - blood cultures neg x 1, wound cx pending. - IVFs. - pain control with a bowel regimen. HCV Untreated. 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 She also mentions she was recently exposed to hepatitis A, though was vaccinated. - LFTs wnl, hepatitis panel pending. - outpt GI follow-up. Drug use The pt says she has not used IV drugs in years but recently took a snort of cocaine. - has been counseled on cessation Lower extremity edema The pt recently completed a course of Lasix. Seems resolved. May be s/t her underlying liver disease. - Lasix as needed. Smoking The pt smokes 1 PPD. - counseled on smoking cessation - nicotine patch. constipation , abd discomfort , gas traping >> malox , bowel regimen , simethicone Yas Rocha MD Oct 24, 2017 11:29
[2017-10-24] MEDS ORDERED: LACTULOSE SYRUP 20 GM/30 ML CUP PO PRN (11:30)
[2017-10-24] MEDS: VANCOMYCIN INJ 1,250 MG in SODIUM CHLOR 0.9% 250 ML INJ 250 ML IV SCH ×2 (12:26→22:24)
[2017-10-24] MEDS: SIMETHICONE 125 MG CHEWABLE TAB PO SCH (12:31)
[2017-10-24] MEDS: LEVOFLOXACIN 500 MG PREMIX INJ 100 ML IV SCH (14:56)
--- NOTE | 2017-10-24 17:08 | HHI.PR ---
Subjective Remarks complains of pain denies any numbness denies any fever Objective Vital Signs Date Time Temp Pulse Resp B/P (MAP) Pulse Ox O2 Delivery O2 Flow Rate FiO2 10/24/17 16:27 18 10/24/17 16:00 98.0 74 18 137/72 (93) 97 10/24/17 12:00 97.5 66 18 132/60 (84) 98 10/24/17 11:09 18 10/24/17 08:00 98.2 74 18 142/79 (100) 98 10/24/17 04:00 97.3 74 18 108/56 (73) 96 10/24/17 00:00 97.9 67 17 106/57 (73) 94 10/23/17 20:00 99.2 74 18 120/59 (79) 91 I/O 10/23/17 10/23/17 10/23/17 10/24/17 10/24/17 10/24/17 07:00 15:00 23:00 07:00 15:00 23:00 Intake Total 440 ml 862.5 ml 2020 ml 240 ml 100 ml Output Total 10 ml Balance 430 ml 862.5 ml 2020 ml 240 ml 100 ml Intake Oral 240 ml 1920 ml 240 ml IV Total 200 ml 862.5 ml 100 ml 100 ml Output Estimated Blood Loss 10 ml # Voids 2 3 3 # Bowel Movements 0 right hand: decreased swelling packing in place minimal clear drainage stiffness of the fingers noted gram stain and cultures: no growth to date Result Diagram: 10/23/17 0650 10/23/17 0650 Assessment and Plan Assessment and Plan 42 year old female s/o incision and drainage right hand abscess pod 2 Plan: packing removed, dry dressing applied keep the part elevated range of motion exercises. continue with IV antibiotics hand surgery will follow. Bay Silva MD Oct 24, 2017 17:08
[2017-10-24] MEDS: ALUMINUM/MAGNESIUM/SIMETH 30 ML CUP PO PRN (22:26)
[2017-10-25] VITALS: BP 117/66; PULSE 69; RESP 20; TEMP 97; O2SAT 98
[2017-10-25] MEDS: ONDANSETRON HCL 4 MG/2 ML VIAL IV PUSH PRN
[2017-10-25] MEDS: SODIUM CHLOR 0.9% 1000 ML INJ 1,000 ML IV SCH ×2 (01:23→08:43)
[2017-10-25] MEDS: metroNIDAZOLE 500 MG INJ 100 ML IV SCH ×4 (02:23→23:57)
[2017-10-25 04:00] VITALS: BP 103/63; PULSE 64; RESP 18; TEMP 98.1; O2SAT 99
[2017-10-25] MEDS: REMOVE OLD PATCH T-DERMAL SCH (08:10)
[2017-10-25] MEDS: SIMETHICONE 125 MG CHEWABLE TAB PO SCH (08:33)
[2017-10-25] MEDS: DOCUSATE SODIUM 50 MG/SENNA 8.6 MG TAB PO SCH ×2 (08:33→20:09)
[2017-10-25] MEDS: FAMOTIDINE 20 MG TAB PO SCH ×3 (08:33→20:09)
[2017-10-25] MEDS: NICOTINE 21 MG/24 HR PATCH T-DERMAL SCH (08:35)
[2017-10-25] MEDS: SODIUM CHLORIDE 0.9% FLUSH 10 ML FLUSH IV FLUSH SCH ×2 (08:36→20:08)
[2017-10-25 08:42] VITALS: BP 95/61; PULSE 68; RESP 16; TEMP 97.9; O2SAT 97
[2017-10-25] MEDS: VANCOMYCIN INJ 1,250 MG in SODIUM CHLOR 0.9% 250 ML INJ 250 ML IV SCH (09:46)
[2017-10-25] MEDS ORDERED: FLUCONAZOLE 100 MG TAB PO ONE (10:45)
[2017-10-25] MEDS ORDERED: PILL SPLITTER OTHER PRN (11:30)
--- NOTE | 2017-10-25 12:14 | HHI.PR ---
Subjective Remarks Follow up visit for right hand infection and cellulitis. Patient seen and examined in room, had just used the bathroom. States that her right hand pain is constant, she will get pain relief from Roxicodone, but this will only last about an hour before pain returns and is throbbing. Elevating her had does provide some pain relief. She was on Toradol but states that this was discontinued as she has a history of reduced kidney function. She endorses nausea but no vomiting, feels that this is related to the antibiotics. She also complains of low grade fever yesterday. She has been moving her bowels without difficulties, urinating plenty and tolerating her meals well. Patient is worried about her antibiotics being discontinued as she has a history of MRSA when she was in residential and states that she almost . She is also complaining of anxiety and does not know if this could be related to her pain, she was non Xanax as an outpatient. She states that a 30 day supply would at times last her 90 days because she only used this as needed, voices no other acute concerns at this moment. Objective Vitals Vital Signs Date Time Temp Pulse Resp B/P (MAP) Pulse Ox O2 Delivery O2 Flow Rate FiO2 10/25/17 08:42 97.9 68 16 95/61 (72) 97 10/25/17 05:12 16 10/25/17 04:00 98.1 64 18 103/63 (76) 99 10/25/17 00:00 97.0 69 20 117/66 (83) 98 10/24/17 22:38 97 10/24/17 20:00 98.5 68 20 119/67 (84) 100 10/24/17 16:00 98.0 74 18 137/72 (93) 97 10/24/17 12:00 97.5 66 18 132/60 (84) 98 I/O 10/24/17 10/24/17 10/24/17 10/25/17 10/25/17 10/25/17 07:00 15:00 23:00 07:00 15:00 23:00 Intake Total 240 ml 100 ml 960 ml 262.5 ml Balance 240 ml 100 ml 960 ml 262.5 ml Intake Oral 240 ml 960 ml IV Total 100 ml 262.5 ml # Voids 3 8 2 # Bowel Movements 1 0 Result Diagram: 10/23/17 0650 10/23/17 0650 Imaging Last Impressions Hand X-Ray 10/22/17 0934 Signed Impressions: Service Date/Time: Sunday, October 22, 2017 09:47 - CONCLUSION: 1. Soft tissue swelling on dorsum of hand. No acute bony abnormality. Constantine Staton MD Soft Tissue Ultrasound 10/22/17 0000 Signed Impressions: Service Date/Time: Sunday, October 22, 2017 16:45 - CONCLUSION: No drainable fluid collection seen. Jadon Wyatt MD Objective Remarks GENERAL: Well-nourished, well-developed patient. SKIN: Focused skin assessment warm/dry, right arm with trace swelling, right hand with dry and intact gaze dressing in place. HEAD: Normocephalic/atraumatic. NECK: Supple, trachea midline. CARDIOVASCULAR: Regular rate and rhythm without murmurs, gallops, or rubs. RESPIRATORY: Breath sounds equal bilaterally. GASTROINTESTINAL: Abdomen soft, non-tender, nondistended. MUSCULOSKELETAL: Right hand with limited range of motion secondary to the swelling, pain, and dressing. +sensation in fingers with <3 second capillary refill. NEUROLOGICAL: Awake and alert. Normal speech, moves all extremities spontaneously. PSYCH: Mood and affect appropriate. A/P Problem List: (1) Tobacco abuse ICD Code: Z72.0 - Tobacco use (2) Abscess of dorsum of right hand ICD Code: L02.511 - Cutaneous abscess of right hand (3) Cellulitis of right hand ICD Code: L03.113 - Cellulitis of right upper limb Status: Acute Assessment and Plan 42-year-old female with PMH significant for anxiety, skin MRSA infection, tobacco abuse, HCV who presented to the ED on 10/22 with complaints of right hand swelling and pain after her cat scratched and bit her. Patient has been admitted and stated on empiric antibiotic treatment, hand surgery consulted for I&D. Right hand infection Following cat scratch and bit injury - Admitting labs showing leukocytosis, patient started on vancomycin, Levaquin and Flagyl to cover for the animal bite. - US of the right hand and distal forearm done showing no drainable fluid collection. - Hand surgery seen patient who did I&D on 10/23 of right dorsal hand with cultures obtained, had packing removed yesterday and dressing applied. - Blood cultures x 2 with no growth to date. Preliminary wound culture today with no WBC's or organism, continue to follow final results. - Continue IV antibiotics consider switching to PO tomorrow, follow hand surgery recommendations for duration. - IVFs D/C, patient tolerating PO diet. - pain reported as constant, continue oral Roxicodone, will add Toradol again and recheck kidney function tomorrow. - OT for ROM of hand. HCV - Hepatitis C AB+, liver enzymes normal. - Can follow-up with GI as outpatient. Drug use The pt says she has not used IV drugs in years but recently took a snort of cocaine. - cessation instruction. Lower extremity edema The pt recently completed a course of Lasix. Seems resolved, no edema observed. - Lasix as needed. Smoking - cessation instruction. - nicotine patch. PPx: Sheba Ferrer Oct 25, 2017 12:14
[2017-10-25 12:15] VITALS: BP 102/65; PULSE 62; RESP 16; TEMP 99.5; O2SAT 99
[2017-10-25] MEDS ORDERED: hydrOXYzine PAMOATE 25 MG CAP PO PRN (13:00)
[2017-10-25] MEDS: LEVOFLOXACIN 500 MG PREMIX INJ 100 ML IV SCH (16:14)
[2017-10-25 16:40] VITALS: BP 108/69; PULSE 73; RESP 16; TEMP 98.3; O2SAT 98
[2017-10-25 20:00] VITALS: BP 133/75; PULSE 67; RESP 20; TEMP 97.6; O2SAT 100
[2017-10-25] MEDS: VANCOMYCIN INJ 1,500 MG in SODIUM CHLORID 0.9% 500 ML INJ 500 ML IV SCH (21:16)
[2017-10-26] VITALS: BP 112/59; PULSE 56; RESP 20; TEMP 97.5; O2SAT 99
[2017-10-26 06:40] LABS: ANION GAP 6 MEQ/L (5-15); AST (GOT) 16 U/L (15-37); BICARBONATE 24.2 MEQ/L (21.0-32.0); BLOOD UREA NITROGEN 7 MG/DL (7-18); CHLORIDE 109 MEQ/L (98-107); GLOMERULAR FILTRATION RATE 96 ML/MIN (>89); POTASSIUM 4.1 MEQ/L (3.5-5.1); SODIUM (NA) 139 MEQ/L (136-145)
[2017-10-26 06:41] LABS: ALT (GPT) 27 U/L (10-53)
[2017-10-26 06:43] LABS: ALKALINE PHOSPHATASE 73 U/L (45-117); TOTAL BILIRUBIN ADULT 0.2 MG/DL (0.2-1.0)
[2017-10-26] MEDS: DOCUSATE SODIUM 50 MG/SENNA 8.6 MG TAB PO SCH ×2 (07:56→19:45)
[2017-10-26] MEDS: SIMETHICONE 125 MG CHEWABLE TAB PO SCH (07:56)
[2017-10-26] MEDS: FAMOTIDINE 20 MG TAB PO SCH ×2 (07:56→19:46)
[2017-10-26] MEDS: SODIUM CHLORIDE 0.9% FLUSH 10 ML FLUSH IV FLUSH SCH ×2 (07:57→19:46)
[2017-10-26] MEDS: NICOTINE 21 MG/24 HR PATCH T-DERMAL SCH (07:57)
[2017-10-26] MEDS: REMOVE OLD PATCH T-DERMAL SCH (07:57)
[2017-10-26] MEDS: metroNIDAZOLE 500 MG INJ 100 ML IV SCH (07:57)
[2017-10-26 08:00] VITALS: BP 106/66; PULSE 56; RESP 17; TEMP 97.4; O2SAT 100
[2017-10-26] MEDS: ONDANSETRON HCL 4 MG/2 ML VIAL IV PUSH PRN (09:18)
[2017-10-26] MEDS: VANCOMYCIN INJ 1,500 MG in SODIUM CHLORID 0.9% 500 ML INJ 500 ML IV SCH (09:22)
--- NOTE | 2017-10-26 11:50 | HHI.FF ---
Face to Face Verification Diagnosis: (1) Cellulitis of right hand (2) History of MRSA infection (3) Abscess of dorsum of right hand Occupational Therapy Order: Evaluate and Treat, Improve ADL, Gross motor coordination, Fine motor coordination Home Health Nursing Order: Medical education Signs/symptoms of disease process Wound care and dressing changes I have seen patient Jammie Mora on 10/26/17. My clinical findings support the need for the requested home health care services because: Limited ability to care for self Infection w/ risk of complications I certify that my clinical findings support that this patient is homebound because: Unable to use public transportation Ken Barrios Oct 26, 2017 11:50
--- NOTE | 2017-10-26 11:53 | HHI.PR ---
Subjective Remarks Follow- up on right hand cellulitis. Patient states that she continues to have right hand pain and that yesterday when she had dressing change by her pain was so bad to the pain that it made her nauseated and she had to get medicated by the nurse. She continues to have nausea, no vomiting, just spiting up. No diarrhea, abdominal pain, no fevers or chills. Patient tells me that she was not allowed to get Toradol and Roxicodone at the same time and that this is how they work best. She continues to be concerned over how she will be able to get antibiotics for her infection once she leaves the hospital as she does not have insurance. Objective Vitals Vital Signs Date Time Temp Pulse Resp B/P (MAP) Pulse Ox O2 Delivery O2 Flow Rate FiO2 10/26/17 08:00 97.4 56 17 106/66 (79) 100 10/26/17 00:00 97.5 56 20 112/59 (76) 99 10/25/17 20:00 97.6 67 20 133/75 (94) 100 10/25/17 16:40 98.3 73 16 108/69 (82) 98 10/25/17 12:15 99.5 62 16 102/65 (77) 99 I/O 10/25/17 10/25/17 10/25/17 10/26/17 10/26/17 10/26/17 07:00 15:00 23:00 07:00 15:00 23:00 Intake Total 262.5 ml 840 ml 480 ml 100 ml Output Total 700 ml Balance 262.5 ml 140 ml 480 ml 100 ml Intake Oral 840 ml 480 ml IV Total 262.5 ml 100 ml Output Urine Total 700 ml # Voids 2 4 5 # Bowel Movements 0 1 Result Diagram: 10/23/17 0650 10/26/17 0505 Objective Remarks GENERAL: Well-nourished, well-developed patient. SKIN: Focused skin assessment warm/dry, right arm with trace swelling, right hand with dry and intact gaze dressing in place. HEAD: Normocephalic/atraumatic. NECK: Supple, trachea midline. CARDIOVASCULAR: Regular rate and rhythm without murmurs, gallops, or rubs. RESPIRATORY: Breath sounds equal bilaterally. GASTROINTESTINAL: Abdomen soft, non-tender, nondistended. MUSCULOSKELETAL: Right hand with limited range of motion secondary to the swelling, pain, and dressing. +sensation in fingers with <3 second capillary refill. NEUROLOGICAL: Awake and alert. Normal speech, moves all extremities spontaneously. PSYCH: Mood and affect appropriate. A/P Problem List: (1) Tobacco abuse ICD Code: Z72.0 - Tobacco use (2) Abscess of dorsum of right hand ICD Code: L02.511 - Cutaneous abscess of right hand (3) Cellulitis of right hand ICD Code: L03.113 - Cellulitis of right upper limb Status: Acute Assessment and Plan 42-year-old female with PMH significant for anxiety, skin MRSA infection, tobacco abuse, HCV who presented to the ED on 10/22 with complaints of right hand swelling and pain after her cat scratched and bit her. Patient has been admitted and stated on empiric antibiotic treatment, hand surgery consulted for I&D. Right hand infection Following cat scratch and bit injury - Admitting labs showing leukocytosis, patient started on vancomycin, Levaquin and Flagyl to cover for the animal bite. - US of the right hand and distal forearm done showing no drainable fluid collection. - Hand surgery seen patient who did I&D on 10/23 of right dorsal hand with cultures obtained, had packing removed yesterday and dressing applied. - Blood cultures x 2 with no growth to date. Wound cultures growing Group A Strep, no susceptibility testing, call placed to [facility] so that susceptibility can be done as patient does have a penicillin allergy. - DC IV Flagyl, Levaquin and Vanco. - Spoke to patient who states she has taken Keflex in past, no issues. Has taken Amoxicillin also with no issues. Took Penicillin a "long time ago" caused her to have rash and tighten throat. - Switch patient over to IV Rocephin, monitor for reaction, then once ready to DC can switch over to PO Keflex. - Hand surgery following, appreciate recommendations, will need clearance prior to discharge. - Continue oral Roxicodone along with Toradol, renal function stable. Nurse made aware it is okay to administer both together. - OT for ROM of hand. HCV - Hepatitis C AB+, liver enzymes normal. - Can follow-up with GI as outpatient. Drug use The pt says she has not used IV drugs in years but recently took a snort of cocaine. - cessation instruction. Lower extremity edema The pt recently completed a course of Lasix. Seems resolved, no edema observed. - Lasix as needed. Smoking - cessation instruction. - nicotine patch. PPx: SCDs Discussed with nurse and Dr. Dumont. Discharge Planning Consider discharging on PO Keflex once cleared by hand surgery. Sheba Mtz Oct 26, 2017 11:53
[2017-10-26 12:00] VITALS: BP 111/60; PULSE 60; RESP 17; TEMP 97.7; O2SAT 99
[2017-10-26] MEDS: KETOROLAC TROMETHAMINE 30 MG/ML (IVP) VIAL IV PUSH PRN ×2 (12:23→19:46)
[2017-10-26] MEDS ORDERED: cefTRIAXone INJ 1,000 MG in SODIUM CHLORIDE 0.9% INJ 100 ML IV SCH (15:00)
[2017-10-26 16:00] VITALS: BP 99/57; PULSE 71; RESP 17; TEMP 97.5; O2SAT 97
[2017-10-26] MEDS ORDERED: CEPH-460 PO (17:17)
[2017-10-26] MEDS: ALUMINUM/MAGNESIUM/SIMETH 30 ML CUP PO PRN ×2 (17:34→23:23)
[2017-10-26 20:00] VITALS: BP 136/68; PULSE 62; RESP 20; TEMP 97.9; O2SAT 99
[2017-10-27] MEDS: ONDANSETRON HCL 4 MG/2 ML VIAL IV PUSH PRN (01:08)
[2017-10-27] MEDS: KETOROLAC TROMETHAMINE 30 MG/ML (IVP) VIAL IV PUSH PRN (01:45)
[2017-10-27 08:00] VITALS: BP 112/77; PULSE 70; RESP 17; TEMP 98.5; O2SAT 97
--- NOTE | 2017-10-27 08:18 | HHI.DS ---
Discharge Summary Admission Date Oct 22, 2017 at 14:18 Discharge Date: Oct 27, 2017 Admitting Diagnosis right hand cellulitis, leukocytosis (1) Tobacco abuse ICD Code: Z72.0 - Tobacco use (2) Abscess of dorsum of right hand ICD Code: L02.511 - Cutaneous abscess of right hand (3) Cellulitis of right hand ICD Code: L03.113 - Cellulitis of right upper limb Status: Acute Brief History - From Admission The patient is a 42-year-old female with a past medical history of hepatitis C and staph infections who is presenting to the hospital with a swollen and painful right hand. The patient says that she has taken in a feral cat a few weeks ago and on she was scratched several times. The patient endorses having been bitten and scratched by the cat several times before. She said that her right hand swelled up at the site of the biggest scratch and the swelling started to spread to her fingers and up her arm. She also noted streaking of redness going up her right arm. She says the pain is quite severe in nature. She currently endorses numbness in her fingers of the right hand. The patient says this morning she woke up vomiting. She experienced shaking chills. The patient also mentions that her legs have been swelling up lately and she took a brief course of Lasix. She says her stomach tends to swell as well. She also mentions that she was recently exposed to hepatitis A, though she says she did receive vaccinations for that. She says she got out of shelter in November, where she had a prolonged kidney infection. She says her normal blood pressure is around 90/60. CBC/BMP: 10/23/17 0650 10/26/17 0505 Significant Findings Laboratory Tests Test 10/24/17 11:43 10/26/17 05:05 Albumin 3.0 GM/DL (3.4-5.0) Calcium Level 8.4 MG/DL (8.5-10.1) Chloride Level 109 MEQ/L (98-107) Imaging Last Impressions Hand X-Ray 10/22/17 0987 Signed Impressions: Service Date/Time: Sunday, October 22, 2017 09:47 - CONCLUSION: 1. Soft tissue swelling on dorsum of hand. No acute bony abnormality. Constantine Staton MD Soft Tissue Ultrasound 10/22/17 0000 Signed Impressions: Service Date/Time: Sunday, October 22, 2017 16:45 - CONCLUSION: No drainable fluid collection seen. Jadon Wyatt MD PE at Discharge GENERAL: Well-nourished, well-developed patient. SKIN: Focused skin assessment warm/dry, right arm with trace swelling, right hand with dry and intact gaze dressing in place. HEAD: Normocephalic/atraumatic. NECK: Supple, trachea midline. CARDIOVASCULAR: Regular rate and rhythm without murmurs, gallops, or rubs. RESPIRATORY: Breath sounds equal bilaterally. GASTROINTESTINAL: Abdomen soft, non-tender, nondistended. MUSCULOSKELETAL: Right hand with limited range of motion secondary to the swelling, pain, and dressing. +sensation in fingers with <3 second capillary refill. NEUROLOGICAL: Awake and alert. Normal speech, moves all extremities spontaneously. PSYCH: Mood and affect appropriate. Pt update on day of discharge Patient is awake and alert resting in bed, in no acute distress. States that she did manage to get some sleep, but not till 2am. She continues to have some nausea, but no vomiting and she is also able to eat and drink without issues. Suspect that the reason behind her nausea is related to antibiotic use. Plan to discharge her on Zofran as needed for nausea. Voiding with no issues, states last BM was 2 days ago, offered laxative, but refused. Stats she does an enema at home regularly, offered enema, but also refused. Tells me this is too messy and she will do this at home. Her pain is controlled on current medications and she is requesting pain medication as well as antibiotics for her discharge. She denies any fever or chills, no cough or chest pain. Hospital Course 42-year-old female with a past medical history of hepatitis C and staph infections who presented to the hospital with a swollen and painful right hand after being scratched by cat several times as well as bitten. She noted swelling with red streaking on her hand and arm after injuries and the next day experienced vomiting as well as shaking chills. Patient had a history of staph infections in past and was concerned this was the case so came to the ED. Imaging of the hand revealed no drainable fluid collection on US, x-ray revealed soft tissue swelling on the dorsal hand with no acute bony abnormality. Patient had BC taken, stated on empiric antibiotics for cellulitis and hand surgery was consulted. She underwent Incision and drainage or right hand abscess on 10/[address] Silva with cultures taken. Her blood cultures have not grown anything to date. Hand I&D cultures grew Group A Beta Strep. Patient with an allergy to penicillin, but had taken Keflex as well as Amoxicillin in the past with no issues. Her antibiotics switched to IV Rocephin which she tolerated with no issues. Patient has been cleared by hand surgery to go home on Keflex and follow up in one week as out patient. She has plans of following up with her PCP in one week as well. She is agreeable to plan and discharge. Pt Condition on Discharge: Good Discharge Disposition: Discharge Home Discharge Time: <= 30 minutes Discharge Instructions DIET: Follow Instructions for: As Tolerated, No Restrictions Speech Therapy-Diet Recommends: Regular Activities to Avoid: Driving for 24 hrs Follow up Referrals: Hand Surgery - 1 Week PCP Follow-up - 1 Week Sheba Mtz Oct 27, 2017 08:18
[2017-10-27] MEDS ORDERED: ZOFR4TAB PO (08:24)
[2017-10-27] MEDS: REMOVE OLD PATCH T-DERMAL SCH (09:00)
[2017-10-27] MEDS: NICOTINE 21 MG/24 HR PATCH T-DERMAL SCH (09:00)
[2017-10-27] MEDS: FAMOTIDINE 20 MG TAB PO SCH (09:41)
[2017-10-27] MEDS: SIMETHICONE 125 MG CHEWABLE TAB PO SCH (09:41)
[2017-10-27] MEDS: DOCUSATE SODIUM 50 MG/SENNA 8.6 MG TAB PO SCH (09:42)
[2017-10-27] MEDS: SODIUM CHLORIDE 0.9% FLUSH 10 ML FLUSH IV FLUSH SCH (09:43)
[2017-10-27] MEDS ORDERED: PHARMACY ORDERED LAB ONE (09:45)
[2017-10-27] MEDS ORDERED: OXYC-392 PO (09:59)
--- NOTE | 2017-10-27 12:44 | HHI.DCPOC ---
Discharge Care Plan Diagnosis: (1) Abscess of dorsum of right hand (2) Tobacco abuse (3) History of MRSA infection (4) Cellulitis of right hand Your Health Problems Are: Incision/Drains Inflammation Swelling Goals to Promote Your Health * To prevent worsening of your condition and complications * To maintain your health at the optimal level Directions to Meet Your Goals Take your medications as prescribed Follow your dietary instruction Follow activity as directed Keep your appointments as scheduled Take your immunizations and boosters as scheduled If your symptoms worsen call your PCP, if no PCP go to Urgent Care Center or Emergency Room Smoking is Dangerous to Your Health. Avoid second hand smoke Call the 24-hour hour crisis hotline for domestic abuse at Ken Barrios Oct 27, 2017 12:44
== END 2017-10-27 12:46 | disposition home or self-care (01) | DRG 513 ==
LOC: NEPC 08:56 → NEDA 14:18 → N07B 15:53
PROVIDERS: ADMIT Hospitalist; ATTEND Hospitalist
PROC: 0JBJ0ZZ Excision of Right Hand Subcutaneous Tissue and Fascia, Open Approach (ICD-10-PCS; principal; 2017-10-23)
DX: M65.141 Other infective (teno)synovitis, right hand (principal); L03.113 Cellulitis of right upper limb; F32.9 Major depressive disorder, single episode, unspecified; J44.9 Chronic obstructive pulmonary disease, unspecified; D49.0 Neoplasm of unspecified behavior of digestive system; L02.511 Cutaneous abscess of right hand; K59.00 Constipation, unspecified; F17.210 Nicotine dependence, cigarettes, uncomplicated; G89.29 Other chronic pain; M54.5 Low back pain; F41.9 Anxiety disorder, unspecified; K76.9 Liver disease, unspecified; Z20.5 Contact with and (suspected) exposure to viral hepatitis; B19.20 Unspecified viral hepatitis C without hepatic coma; B95.7 Other staphylococcus as the cause of diseases classified elsewhere; Z88.0 Allergy status to penicillin; W55.03XA Scratched by cat, initial encounter; Z85.41 Personal history of malignant neoplasm of cervix uteri; Z86.14 Personal history of Methicillin resistant Staphylococcus aureus infection
CPT/HCPCS: 73120; 76937; 76999; 80048; 80053; 80074; 80202; 81001; 85025; 85610; 87040; 87070; 87205; 90471; 90714; 96374; 96375; J1170; J0330; J0696; J1580; J1885; J1956; J2250; J2405; J3010; J3370; J7030; J7040; J7050

== ENCOUNTER 2018-10-15 08:25 | Inpatient (IN) ==
[2018-10-15] MEDS ORDERED: Sod Chloride 0.9% Inj 1,000 ML IV.SIG ONE (08:38)
[2018-10-15] MEDS ORDERED: Acetaminophen 500 MG Tablet PO ONE (08:38)
[2018-10-15] MEDS ORDERED: Ketorolac Inj 30 MG/ML (IVP) Vial IV.PUSH ONE (08:38)
[2018-10-15] MEDS ORDERED: Aluminum/Magnesium/Simethacone Susp 30 ML UDC PO ONE (08:38)
--- NOTE | 2018-10-15 08:49 | ED ---
HPI General Chief Complaint: Chest Pain Stated Complaint: respiratory Time Seen by Provider: 10/15/18 08:32 Source: patient Mode of arrival: ambulatory Limitations: no limitations History of Present Illness HPI narrative: The patient is 43 years old. She reports pain which started in the left flank with radiation to the left groin. It started about 1 day ago. She states that the pain then radiated along the anterior abdomen to the region of left upper quadrant into the chest. She states the pain is severe. The pain is constant. Pain is worse with breathing. Nausea is reported. No diarrhea. No vomiting. No fever. Patient reports a history of chronic back pain. Patient reports a history of recurrent kidney stones. Patient reports a history of opioid abuse in the past and is evidently in recovery however reports [facility] and friend there gave her an opioid tablet a few days ago. Denies drug abuse otherwise. Related Data Home Medications Medication Instructions Recorded Confirmed budesonide-formoterol [Symbicort] 2 puff INHALATION BID 10/15/18 10/15/18 cyclobenzaprine mg PO HS 10/15/18 Allergies Allergy/AdvReac Type Severity Reaction Status Date / Time morphine Allergy Severe HIVES-SOB Verified 10/15/18 08:28 penicillin G Allergy Severe SWELLING Verified 10/15/18 08:28 Sulfa (Sulfonamide Allergy Severe SWELLING Verified 10/15/18 08:28 Antibiotics) gabapentin Allergy Weight Gain Verified 10/15/18 08:28 Review of Systems ROS: all other systems reviewed are negative Constitutional Denies fever(s) PMFSH Medical History Medical History (Acute) Endometriosis (Acute) History of intravenous drug abuse (Acute) Substance abuse (Acute) Hepatitis C (Acute) Surgical History Surgical History History of hand surgery (Acute) Hx of cholecystectomy (Acute) Social History Social History Substance History: Active Abuse Second Hand Smoke Exposure: Yes Smoking Status: Current every day smoker Tobacco Type: Cigarettes How Often Do You Have a Drink Containing Alcohol: 2 to 4 times a month Recent Travel in [facility] within the Last 8 Weeks: No Recent Out of Country Travel within the Last 8 Weeks: No Substance Abuse Detail Other: Substance Use Type Other:: Pt is unsure what drug she was given [facility] a [facility] Substance Use Status: Active Route Used Substance Abuse: By Mouth Crack/Cocaine: Substance Use Status: Active Route Used Substance Abuse: Inhalation Immunization History Tetanus Immunization: Unsure Exam Narrative Exam Narrative: GENERAL: 43-year-old female, crying, speaking full sentences, pleasant, mild to moderate distress due to pain SKIN: Focused skin assessment warm/dry. Piloerection. HEAD: Atraumatic. Normocephalic. EYES: Pupils equal and round. No scleral icterus. No injection or drainage. ENT: No nasal bleeding or discharge. Mucous membranes pink and moist. NECK: Trachea midline. No JVD. CARDIOVASCULAR: Heart rate about 120. Regular rhythm. RESPIRATORY: Respiratory rate about 24. Lung sounds clear. GASTROINTESTINAL: Diffuse nonspecific tenderness to light palpation. Tenderness to percussion in the left flank. MUSCULOSKELETAL: No obvious deformities. No clubbing. No cyanosis. No edema. NEUROLOGICAL: Awake and alert. No obvious cranial nerve deficits. Motor grossly within normal limits. Normal speech. PSYCHIATRIC: Appropriate mood and affect; insight and judgment normal. Course Initial Documented Vital Signs Temperature 98.5 F 10/15/18 08:27 Pulse Rate 122 H 10/15/18 08:27 Respiratory Rate 24 10/15/18 08:27 Blood Pressure 129/68 10/15/18 08:27 Pulse Oximetry 100 10/15/18 08:27 Last Documented Vital Signs Temperature 98.7 F 10/15/18 08:42 Pulse Rate 112 H 10/15/18 08:51 Respiratory Rate 20 10/15/18 08:42 Blood Pressure 136/64 10/15/18 08:42 Pulse Oximetry 97 10/15/18 08:52 Critical Care Time Critical Care Time: Yes Total Critical Care Time: 35 Attestation: Aggregate critical care time was 35 minutes. Time to perform other separately billable procedures was not included in the critical care time. My time did not include minutes spent treating any other patients simultaneously or on activities that did not directly contribute to the patient's treatment. The services I provided to this patient were to treat and/or prevent clinically significant deterioration that could result in: Hemorrhagic shock, septic shock I provided critical care services requiring my management, as noted below: Chart data review, documentation time, medication orders and management, vital sign assessments/reviewing monitor data, ordering and reviewing lab tests, ordering and interpreting/reviewing x-rays and diagnostic studies, care of the patient and discussion of the patient with the admitting physicians. Medical Decision Making MDM Narrative Medical decision making narrative: CT reveals abnormal collection in the left retroperitoneal abdomen which could be hemorrhage which is considered unlikely because there appears to be fat interspersed through it. It is nonetheless acutely symptomatic for the patient and a CT abdomen pelvis with contrast was added on. Tachycardia upon arrival to the 120s has improved to 80 here. The patient received a GI cocktail and Toradol initially however 1 mg IV hydromorphone was added on. Case discussed with Dr. Judge for [facility] service at 1033AM. Medical Screen Exam Complete: Yes Emergency Medical Condition: Yes Differential Diagnosis Differential Diagnosis: Constipation, Gastritis, Acute Cholecystitis, Biliary Colic, Pancreatitis, LUJAN, Hepatitis, Bowel Obstruction, Cystitis, Mesenteric Ischemia, AAA, Appendicitis, Renal Stone/Hydronephrosis, GERD, perforated viscous Medical Records Medical records reviewed: Yes I reviewed the patient's medical records. Lab Data Lab results reviewed: Yes I reviewed the patient's lab results. Result diagrams: 10/15/18 08:50 10/15/18 08:50 POC Results POC Urine Results Negative Lab Results 10/15/18 10/15/18 10/15/18 Range/Units 08:50 08:50 09:35 WBC 13.7 H (4.0-11.0) th/mm3 RBC 3.77 L (4.00-5.30) mil/mm3 Hgb 10.6 L (11.6-15.3) gm/dL Hct 31.8 L (35.0-46.0) % MCV 84.4 (80.0-100.0) fL MCH 28.1 (27.0-34.0) pg MCHC 33.2 (32.0-36.0) % RDW 15.3 (11.6-17.2) % Plt Count 565 H (150-450) th/mm3 MPV 7.4 (7.0-11.0) fL Neut % (Auto) 82.9 H (16.0-70.0) % Lymph % (Auto) 11.0 (9.0-44.0) % [place] % (Auto) 4.7 (0.0-8.0) % Eos % (Auto) 0.9 (0.0-4.0) % Baso % (Auto) 0.5 (0.0-2.0) % Neut # (Auto) 11.4 H (1.8-7.7) th/mm3 Lymph # (Auto) 1.5 (1.0-4.8) th/mm3 [place] # (Auto) 0.6 (0.0-0.9) th/mm3 Eos # (Auto) 0.1 (0.0-0.4) th/mm3 Baso # (Auto) 0.1 (0.0-0.2) th/mm3 WBC Differential . Differential Comment Auto diff final Sodium 135 L (136-145) meq/L Potassium 3.8 (3.5-5.1) meq/L Chloride 101 (98-107) meq/L Carbon Dioxide 27.0 (21.0-32.0) meq/L Anion Gap 7 (5-15) meq/L BUN 10 (7-18) mg/dL Creatinine 0.71 (0.50-1.00) mg/dL Estimated GFR 89 (>89) mL/min Random Glucose 111 H (74-106) mg/dL Calcium 8.8 (8.5-10.1) mg/dL Magnesium 1.7 (1.5-2.5) mg/dL Total Bilirubin 0.2 (0.2-1.0) mg/dL AST 21 (15-37) U/L ALT 22 (10-53) U/L Alkaline Phosphatase 117 (45-117) U/L Troponin I Less than 0.02 L (0.02-0.05) ng/mL Total Protein 8.0 (6.4-8.2) g/dL Albumin 2.7 L (3.4-5.0) g/dL Lipase 44 L (73-393) U/L Urine Color (Yellw/Straw) Urine Clarity (Clear) Urine pH (5.0-8.5) Ur Specific [place] (1.002-1.035) Urine Protein (Neg-Trace) mg/dL Urine Glucose (UA) (Negative) mg/dL Urine Ketones (Negative) mg/dL Urine Occult Blood (Negative) Urine Nitrate (Negative) Urine Bilirubin (Negative) Urine Urobilinogen (Less than 2) mg/dL Ur Leukocyte Esterase (Negative) Urine RBC (0-3) /hpf Urine WBC (0-5) /hpf Ur Squamous Epith Cells (0-5) /hpf Micro UA Comment Ur Microscopic Review Urine Culture Comments Urine Opiates Screen Neg (Neg) Ur Barbiturates Screen Neg (Neg) Ur Amphetamines Screen Neg (Neg) U Benzodiazepines Scrn Neg (Neg) Urine Cocaine Screen Pos H (Neg) U Cannabinoids Screen Neg (Neg) 10/15/18 Range/Units 09:35 WBC (4.0-11.0) th/mm3 RBC (4.00-5.30) mil/mm3 Hgb (11.6-15.3) gm/dL Hct (35.0-46.0) % MCV (80.0-100.0) fL MCH (27.0-34.0) pg MCHC (32.0-36.0) % RDW (11.6-17.2) % Plt Count (150-450) th/mm3 MPV (7.0-11.0) fL Neut % (Auto) (16.0-70.0) % Lymph % (Auto) (9.0-44.0) % [place] % (Auto) (0.0-8.0) % Eos % (Auto) (0.0-4.0) % Baso % (Auto) (0.0-2.0) % Neut # (Auto) (1.8-7.7) th/mm3 Lymph # (Auto) (1.0-4.8) th/mm3 [place] # (Auto) (0.0-0.9) th/mm3 Eos # (Auto) (0.0-0.4) th/mm3 Baso # (Auto) (0.0-0.2) th/mm3 WBC Differential Differential Comment Sodium (136-145) meq/L Potassium (3.5-5.1) meq/L Chloride (98-107) meq/L Carbon Dioxide (21.0-32.0) meq/L Anion Gap (5-15) meq/L BUN (7-18) mg/dL Creatinine (0.50-1.00) mg/dL Estimated GFR (>89) mL/min Random Glucose (74-106) mg/dL Calcium (8.5-10.1) mg/dL Magnesium (1.5-2.5) mg/dL Total Bilirubin (0.2-1.0) mg/dL AST (15-37) U/L ALT (10-53) U/L Alkaline Phosphatase (45-117) U/L Troponin I (0.02-0.05) ng/mL Total Protein (6.4-8.2) g/dL Albumin (3.4-5.0) g/dL Lipase (73-393) U/L Urine Color Yellow (Yellw/Straw) Urine Clarity Hazy H (Clear) Urine pH 6.0 (5.0-8.5) Ur Specific [place] 1.012 (1.002-1.035) Urine Protein Negative (Neg-Trace) mg/dL Urine Glucose (UA) Negative (Negative) mg/dL Urine Ketones Negative (Negative) mg/dL Urine Occult Blood Small H (Negative) Urine Nitrate Negative (Negative) Urine Bilirubin Negative (Negative) Urine Urobilinogen 2.0 H (Less than 2) mg/dL Ur Leukocyte Esterase Negative (Negative) Urine RBC 1 (0-3) /hpf Urine WBC 1 (0-5) /hpf Ur Squamous Epith Cells 3 (0-5) /hpf Micro UA Comment Culture not ind Ur Microscopic Review Not Reportable Urine Culture Comments Culture not ind Urine Opiates Screen (Neg) Ur Barbiturates Screen (Neg) Ur Amphetamines Screen (Neg) U Benzodiazepines Scrn (Neg) Urine Cocaine Screen (Neg) U Cannabinoids Screen (Neg) Imaging Data Attestation: I personally reviewed and interpreted this imaging study as follows : Radiologist's impression: Chest X-Ray 10/15/18 08:38 CONCLUSION: Negative examination. Abdomen/Pelvis CT 10/15/18 08:41 CONCLUSION: 1. Abnormal exam with what appears to be possibly a large left retroperitoneal hemorrhage, however, given the interspersed fat along the superior lateral margin of this area there is concern for possible fat-containing mass such as liposarcoma and further evaluation with contrast-enhanced CT or MRI is recommended to exclude an enhancing mass. There is extension of the inflammatory changes identified within the left subcutaneous fatty tissues. This results in mild left-sided hydronephrosis without evidence of distal obstructing stone. Discharge Plan Discharge Disposition Patient Disposition: 30 Still Patient Physicians Team ED Provider: Eduardo Dietrich Primary Care Provider: London Cary Rxs /Orders / Referrals /Forms Prescriptions: No Action budesonide-formoterol [Symbicort] 160-4.5 mcg/actuation Hfa Aerosol Inhaler 2 puff INHALATION BID RF: 0 cyclobenzaprine 10 mg tablet PO HS RF: 0 Discharge Instructions Patient Printed Instructions: Chest Pain (ED) Discharge Interventions Interventions: Vital Signs Last Done: 10/15/18 10:28 Status ED Status: With Doctor
[2018-10-15 09:09] LABS: Baso # (Auto) 0.1 th/mm3 (0.0-0.2); Baso % (Auto) 0.5 % (0.0-2.0); Eos # (Auto) 0.1 th/mm3 (0.0-0.4); Eos % (Auto) 0.9 % (0.0-4.0); Hematocrit 31.8 % (35.0-46.0); Hemoglobin 10.6 gm/dL (11.6-15.3); Lymph # (Auto) 1.5 th/mm3 (1.0-4.8); Mean Corpuscular HGB Conc 33.2 % (32.0-36.0); Mean Corpuscular Hemoglobin 28.1 pg (27.0-34.0); Mean Corpuscular Volume 84.4 fL (80.0-100.0); Mean Platelet Volume 7.4 fL (7.0-11.0); Mono # (Auto) 0.6 th/mm3 (0.0-0.9); Mono % (Auto) 4.7 % (0.0-8.0); Neut # (Auto) 11.4 th/mm3 (1.8-7.7); Neut % (Auto) 82.9 % (16.0-70.0); Platelet Count 565 th/mm3 (150-450); Red Blood Count 3.77 mil/mm3 (4.00-5.30); Red Cell Distribution Width 15.3 % (11.6-17.2); White Blood Count 13.7 th/mm3 (4.0-11.0)
[2018-10-15 09:23] LABS: Albumin 2.7 g/dL (3.4-5.0); Anion Gap 7 meq/L (5-15); Aspartate Aminotransferase 21 U/L (15-37); Blood Urea Nitrogen 10 mg/dL (7-18); Calcium 8.8 mg/dL (8.5-10.1); Chloride 101 meq/L (98-107); Glomerular Filtration Rate 89 mL/min (>89); Glucose,Random 111 mg/dL (74-106); Lipase 44 U/L (73-393); Magnesium 1.7 mg/dL (1.5-2.5); Potassium 3.8 meq/L (3.5-5.1); Sodium 135 meq/L (136-145)
[2018-10-15 09:24] LABS: Alanine Aminotransferase 22 U/L (10-53)
[2018-10-15 09:28] LABS: Alkaline Phosphatase 117 U/L (45-117)
[2018-10-15 09:50] LABS: Bilirubin,Urine Negative (Negative); Clarity,Urine Hazy (Clear); Color,Urine Yellow (Yellw/Straw); Glucose,Urine (UA) Negative (Negative); Leukocyte Esterase,Urine Negative (Negative); Nitrite,Urine Negative (Negative); Specific Gravity,Urine 1.012 (1.002-1.035); Squamous Epithelial Cell,Urine 3 /hpf (0-5)
[2018-10-15] MEDS ORDERED: Sod Chloride 0.9% Inj 1,000 ML IV.SIG SCH (10:00)
[2018-10-15] MEDS ORDERED: Vancomycin Inj 1,500 MG in Sodium Chlor 0.9% Inj 500 ML IV.SIG ONE (10:09)
[2018-10-15] MEDS ORDERED: Clindamycin 900 mg/NS Premix 900 MG/50 ML PIGGYBACK IV.SIG ONE (10:09)
--- NOTE | 2018-10-15 10:10 | CT ---
EXAM DATE: 10/15/2018 9:58 AM EST AGE/SEX: 43 years / Female INDICATIONS: Left side flank pain CLINICAL DATA: This is the patient's initial encounter. Patient reports that signs and symptoms have been present for 3 weeks and indicates a pain score of 8/10. MEDICAL/SURGICAL HISTORY: Hepatitis C. Cholecystectomy. RADIATION DOSE: 6.64 CTDI (mGy) COMPARISON: No prior exams available for comparison. TECHNIQUE: Multiple contiguous axial images were obtained through the abdomen. Images were obtained using multiple row detector helical technique. Using automated exposure control and adjustment of the mA and/or kV according to patient size, radiation dose was kept as low as reasonably achievable to o btain optimal diagnostic quality images. DICOM format image data is available electronically for rev iew and comparison. FINDINGS: This is an abnormal exam and further evaluation with either contrast-enhanced CT or MRI is recommended to exclude a mass within the left retroperitoneum. There is asymmetric expansion with int erspersed fat identified within the left iliac is muscle and strandy increased density extending ante riorly and laterally along the left external oblique musculature and extensive fat stranding within t he adjacent subcutaneous fat. There is stranding of the adjacent mesenteric fat identified intraperit oneally. Lower Lungs: The visualized lower lungs are clear. Liver: The liver has a homogeneous density without space-occupying lesion. There is no dilation of th e biliary tree. Spleen: Homogeneous density without enlargement. Pancreas: Unremarkable without mass or calcification. Kidneys: There is mild left-sided hydronephrosis with dilation of the left ureter to the level of th e left retroperitoneal mass. Distal left ureter is not well visualized. No obstructing stones are see n. Adrenal Glands: Unremarkable. Aorta: The aorta and proximal iliac vessels are grossly unremarkable without aneurysmal dilation. Bowel/Mesentery: The bowel loops are grossly unremarkable. The cecum and sigmoid colon have a normal configuration. Abdominal Wall: Intact. Retroperitoneum: No evidence of adenopathy in the retrocrural, para-aortic, or deep pelvic regions. Bladder: Contours are smooth. Reproductive Organs: No abnormal masses or calcifications seen. Inguinal: The inguinal region is unremarkable without evidence of adenopathy. Bony Structures: Degenerative changes of the lower lumbar spine with fusion across the L3/L4 disc sp leonie. CONCLUSION: 1. Abnormal exam with what appears to be possibly a large left retroperitoneal hemorrhage, however, given the interspersed fat along the superior lateral margin of this area there is concern for possib le fat-containing mass such as liposarcoma and further evaluation with contrast-enhanced CT or MRI is recommended to exclude an enhancing mass. There is extension of the inflammatory changes identified within the left subcutaneous fatty tissues. This results in mild left-sided hydronephrosis without ev idence of distal obstructing stone. Electronically signed by: Bella Rowell MD 10/15/2018 10:08 AM EST
[2018-10-15 10:11] LABS: Amphetamine Screen,Urine Neg (Neg); Barbiturate Screen,Urine Neg (Neg); Cannabinoid Screen,Urine Neg (Neg); Cocaine Screen,Urine Pos (Neg)
[2018-10-15 10:12] LABS: Opiate Screen,Urine Neg (Neg)
--- NOTE | 2018-10-15 10:25 | XR ---
EXAM DATE: 10/15/2018 9:01 AM EST AGE/SEX: 43 years / Female INDICATIONS: Bilateral chest pain and abdomen pain. CLINICAL DATA: This is the patient's initial encounter. Patient reports that signs and symptoms have been present for 3 days and indicates a pain score of 8/10. MEDICAL/SURGICAL HISTORY: . Hard of hearing right ear. COPD. Asthma. Cervical cancer. Diabetes. MRSA. Cholecystectomy. Removed endometriosis. Removed cervical cancer. . COMPARISON: [facility] – [place]ST SING[place] AP, 01/04/2016. . FINDINGS: A single AP view of the chest demonstrates the lungs to be symmetrically aerated without evidence of mass, infiltrate or effusion. The cardiomediastinal contours are unremarkable. Osseous structures a re intact. CONCLUSION: Negative examination. Electronically signed by: Bella Rowell MD 10/15/2018 10:23 AM EST
--- NOTE | 2018-10-15 10:58 | P.HPIM ---
History of Present Illness Primary Care Physician: London Cary MD History of Present Illness: 43 year old female with chronic back pain, polysubstance abuse, hepatitis C, COPD, and frequent MRSA infections presenting with left flank pain and chest pain. She reports she started having left flank pain that radiates to her left rib and LLQ for the past three weeks. She states the pain is constant and never lets up. She rates it up to 10/10 and states it is unlike anything she has ever experienced. She has tried Flexeril, Lortab, and a methadone someone gave her none of which provided relief. Deep breathing, movement, talking, and coughing exacerbate her pain. She then started having left sided chest pain three days ago that comes and goes but is sharp and exacerbated by deep breaths. She states she is unsure if this is related to the pain she has been having or her anxiety. She endorses some associated nausea for the past three weeks but denies vomiting or diarrhea. She hasn't had a BM in about 3-4 days. She states she occasionally has bright red blood when she wipes which she attributes to hemorrhoids. She endorses a 10 lb weight loss in the past two weeks as well as night sweats and chills. She states last week she had "convulsing chills" that lasted about 45 minutes. She endorses diminished appetite and general malaise. The patient came to the ER back in June for left-sided back pain with radiation down her left leg. She had a negative XR and on f/u with her PCP she was put on Flexeril, prednisone, and Lortab. She states her back was better within three days though the pain down her left leg still comes and goes. Her PCP is Dr. London Cary. PMH: hepatitis C, history of frequent MRSA infections, COPD, hypoglycemia, osteoarthritis, chronic back pain Surgical Hx: cholecystectomy, 4-5 elective abortions, hand surgery Family Hx: maternal aunt and grandmother with breast cancer, father with CAD, mother with CHF Social Hx: lives with uncle and roommate, smoke 1/2 PPD x 30 years, denies EtOH , history of IV drug use ~10 yrs ago Inpatient Certification I certify that the inpatient services were ordered in accordance with Medicare regulations governing the order. This includes certification that hospital inpatient services are reasonable and necessary and in the case of services not specified as inpatient-only under 42 CFR 419.22(n), that they are appropriately provided as inpatient services in accordance to with the 2-midnight benchmark under 43 CFR 412.3(e) - Diagnosis (1) Sepsis (2) Retroperitoneal fluid collection (3) Chest pain Review of Systems All other systems reviewed negative except as stated in HPI PMFSH - History History Provided By: Patient - Medical History Medical History: Medical History (Last Reviewed 10/15/18 @ 11:43 by Susan Judge MD) Endometriosis History of intravenous drug abuse Substance abuse Hepatitis C - Surgical History Surgical History: Surgical History (Last Reviewed 10/15/18 @ 11:43 by Susan Judge MD) History of hand surgery Hx of cholecystectomy - Family History Family History: Family History (Last Updated 10/15/18 @ 11:43 by Susan Judge MD) Mother Heart disease Father Heart disease Grandparent Breast cancer Aunt Breast cancer - Social History I have reviewed the patient's Social History: Yes - Tobacco History Second Hand Smoke Exposure: Yes Tobacco Use In Past 30 Days: Yes Smoking Status: Current every day smoker Tobacco Type: Cigarettes - Alcohol History How Often Do You Have a Drink Containing Alcohol: 2 to 4 times a month - Substance Use History Substance History: Active Abuse - Substance Use Type Other Type: Pt is unsure what drug she was given at a constitution party Status: Active Route Used: By Mouth Crack/Cocaine Status: Active Route Used: Inhalation - Travel History Recent Travel in the [place] Within the Last 8 Weeks: No Recent Travel Out of the Country Within the Last 8 Weeks: No - Immunization History Tetanus Immunization: Unsure Medications and Allergies Active Medications: Active Medications Sodium Chloride (Ns Inj) 1,000 mls @ 1,000 mls/hr IV.SIG BOLUS COLLEEN Stop: 10/15/18 10:59 Last Admin: 10/15/18 10:30 Dose: 1,000 mls/hr Sodium Chloride (Ns Flush) 2 ml IV.FLUSH PRN PRN PRN Reason: FLUSH AFTER USING IV ACCESS Last Admin: 10/15/18 10:04 Dose: 2 ml Allergies Allergy/AdvReac Type Severity Reaction Status Date / Time morphine Allergy Severe HIVES-SOB Verified 10/15/18 08:28 penicillin G Allergy Severe SWELLING Verified 10/15/18 08:28 Sulfa (Sulfonamide Allergy Severe SWELLING Verified 10/15/18 08:28 Antibiotics) gabapentin Allergy Weight Gain Verified 10/15/18 08:28 Home Medications Medication Instructions Recorded Confirmed Type alprazolam [Xanax] 1 mg DAILY 10/15/18 10/15/18 History budesonide-formoterol [Symbicort] 2 puff INHALATION BID 10/15/18 10/15/18 History cyclobenzaprine mg PO HS 10/15/18 History Exam Vital signs: Vital Signs 10/15/18 08:27 10/15/18 08:42 10/15/18 08:51 Temperature 98.5 F 98.7 F Pulse Rate 122 H 115 H 112 H Respiratory Rate 24 20 Blood Pressure 129/68 136/64 Pulse Oximetry 100 99 10/15/18 08:52 10/15/18 10:28 Temperature Pulse Rate 85 Respiratory Rate 20 Blood Pressure 114/63 Pulse Oximetry 97 96 Intake & Output 10/14/18 10/15/18 10/15/18 18:59 06:59 18:59 Intake Total 1000 / 1000 Balance 1000 / 1000 Weight 68.039 kg Intake: IV 1000 / 1000 NS Inj 1,000 ML @ Wide Open IV. 1000 / 1000 SIG BOLUS ONE Rx#:[id number] Narrative: GENERAL: WN, WD female laying in bed appearing uncomfortable and in pain. Speaking in short sentences secondary to pain. SKIN: Warm and dry. No rash or jaundice. HEENT: AT/NC. PERRLA. EOMI. No scleral icterus or conjunctival injection. MMM. Uvula midline. No pharyngeal exudate. NECK: Supple no tender LAD or JVD. CHEST: Pain not reproducible. HEART: RRR no m/r/g. LUNGS: Anterior lung sounds CTAB without wheezes or crackles. Patient report she cannot sit up secondary to pain. ABDOMEN: +BS, soft, NT, ND. BACK: Patient does not allow me to examine her back. Minimal pressure over her left flank causes significant tenderness. EXTREMITIES: No LE edema. Calves supple and nontender. 2+ pedal pulses. NEURO: Awake and alert. Nonfocal. Results - Labs CBC & Chem 7: 10/15/18 08:50 10/15/18 08:50 Labs: Short CBC 10/15/18 Range/Units 08:50 WBC 13.7 H (4.0-11.0) th/mm3 Hgb 10.6 L (11.6-15.3) gm/dL Hct 31.8 L (35.0-46.0) % Plt Count 565 H (150-450) th/mm3 BMP 10/15/18 08:50 Sodium 135 L Potassium 3.8 Chloride 101 Carbon Dioxide 27.0 BUN 10 Creatinine 0.71 Calcium 8.8 Cardiac Enzymes 10/15/18 Range/Units 08:50 Troponin I Less than 0.02 L (0.02-0.05) ng/mL Liver Function 10/15/18 Range/Units 08:50 Total Bilirubin 0.2 (0.2-1.0) mg/dL AST 21 (15-37) U/L ALT 22 (10-53) U/L Alkaline Phosphatase 117 (45-117) U/L Albumin 2.7 L (3.4-5.0) g/dL Urine 10/15/18 Range/Units 09:35 Urine Color Yellow (Yellw/Straw) Urine Clarity Hazy H (Clear) Urine pH 6.0 (5.0-8.5) Ur Specific [place] 1.012 (1.002-1.035) Urine Protein Negative (Neg-Trace) mg/dL Urine Glucose (UA) Negative (Negative) mg/dL - Imaging Chest X-Ray 10/15/18 08:38 CONCLUSION: Negative examination. Abdomen/Pelvis CT 10/15/18 08:41 CONCLUSION: 1. Abnormal exam with what appears to be possibly a large left retroperitoneal hemorrhage, however, given the interspersed fat along the superior lateral margin of this area there is concern for possible fat-containing mass such as liposarcoma and further evaluation with contrast-enhanced CT or MRI is recommended to exclude an enhancing mass. There is extension of the inflammatory changes identified within the left subcutaneous fatty tissues. This results in mild left-sided hydronephrosis without evidence of distal obstructing stone. Caprini VTE Risk Assessment Caprini VTE Risk Assessment: Moderate/High Risk (score >= 2) Caprini Risk Assessment Model: Point Value = 1 Point Value = 2 Point Value = 3 Point Value = 5 Age 41-60 Minor surgery BMI > 25 kg/m2 Swollen legs Varicose veins or History of unexplained or recurrent spontaneous Oral contraceptives or hormone replacement Sepsis (< 1 month) Serious lung disease, including pneumonia (< 1 month) Abnormal pulmonary function Acute myocardial infarction Congestive heart failure (< 1 month) History of inflammatory bowel disease Medical patient at bed rest Age 61-74 Arthroscopic surgery Major open surgery (> 45 min) Laparoscopic surgery (> 45 min) Malignancy Confined to bed (> 72 hours) Immobilizing plaster cast Central venous access Age >= 75 History of VTE Family history of VTE Factor V Leiden Prothrombin [id number] Lupus anticoagulant Anticardiolipin antibodies Elevated serum homocysteine Heparin-induced thrombocytopenia Other congenital or acquired thrombophilia Stroke (< 1 month) Elective arthroplasty Hip, pelvis, or leg fracture Acute spinal cord injury (< 1 month) Prophylaxis Regimen: Total Risk Factor Score Risk Level Prophylaxis Regimen 0-1 Low Early ambulation 2 Moderate Order ONE of the following: *Sequential Compression Device (SCD) *Heparin 5000 units SQ BID 3-4 Higher Order ONE of the following medications: *Heparin 5000 units SQ TID *Enoxaparin/Lovenox 40 mg SQ daily (WT < 150 kg, CrCl > 30 mL/min) *Enoxaparin/Lovenox 30 mg SQ daily (WT < 150 kg, CrCl > 10-29 mL/min) *Enoxaparin/Lovenox 30 mg SQ BID (WT < 150 kg, CrCl > 30 mL/min) AND/OR *Sequential Compression Device (SCD) 5 or more Highest Order ONE of the following medications: *Heparin 5000 units SQ TID (Preferred with Epidurals) *Enoxaparin/Lovenox 40 mg SQ daily (WT < 150 kg, CrCl > 30 mL/min) *Enoxaparin/Lovenox 30 mg SQ daily (WT < 150 kg, CrCl > 10-29 mL/min) *Enoxaparin/Lovenox 30 mg SQ BID (WT < 150 kg, CrCl > 30 mL/min) AND *Sequential Compression Device (SCD) Assessment and Plan - Assessment (1) Sepsis Code(s): A41.9 - Sepsis, unspecified organism Status: Acute (2) Retroperitoneal fluid collection Code(s): R18.8 - Other ascites Status: Acute (3) Chest pain Code(s): R07.9 - Chest pain, unspecified Status: Acute - Plan 43 YOWF with history of chronic back pain, hepatitic C, and polysubstance abuse admitted for progressive left flank, abdominal, and chest pain with CT A/P showing possibly a large retroperitoneal fluid collection. 1. Sepsis - Meets sepsis criteria based on WBC>12k, tachycardia, and source possible intra -abdominal infection/abscess - Lactic acid WNL - Bolused in the ED - Continue IV fluids - Check blood cultures 2. Intraabdominal fluid collection vs. mass - WBC elevated to 13.7 with left shift - Lipase negative - CT A/P noncontrast showing what appears to be possibly a large left retroperitoneal hemorrhage, however, given the interspersed fat along the superior lateral margin of this area there is concern for possible fat- containing mass such as liposarcoma and further evaluation with contrast- enhanced CT or MRI is recommended to exclude an enhancing mass. There is extension of the inflammatory changes identified within the left subcutaneous fatty tissues. This results in mild left-sided hydronephrosis without evidence of distal obstructing stone - CT A/P with contrast showed complex collection in the left retroperitoneal and flank musculature felt to be mostly like an abscess - D/w IR who feels the collection is amenable to CT-guided drainage - Will order fluid culture and Gram stain - Continue broad-spectrum IV antibiotics to cover intraabdominal source (since allergic to PCN will treat with vancomycin, Aztreonam, and Flagyl) - Consult ID - Antiemetics - IV fluids - Pain control (Toradol with Dilaudid for breakthrough) 3. Chest pain - Possibly secondary to above vs. anxiety but other differentials to consider include ACS, costochondritis, PE, PNA - CXR personally reviewed by me. Lungs are clear with no infiltrates or effusion - Troponin negative, will trend Q6 x 2 - Ativan PRN anxiety 4. Normocytic anemia - Hb 10.6, Hct 31.8 - Comparison of labs from prior visits in 2017 show this is new - She endorses some occasional BRBPR which she attributes to hemorrhoids - Anemia likely secondary to intraabdominal process with some associated (but not active) hemorrhage - Continue to monitor 5. Polysubstance abuse - Patient admits to taking some nonprescribed methadone but denies any other drug use aside from her Lortab that's prescribed - UDS + for cocaine 6. Thrombocytosis - Platelets 565, likely reactive from infection - Continue to monitor 7. Hepatitis C, treatment naive - LFTs WNL - Avoid hepatotoxic agents DVT prophylaxis: SCDs, hold chemical anticoagulation for procedure Code Status: FULL Discussed Condition With: Patient, Dr. Dietrich (ER), Dr. Rowell (radiologist), and Dr. Sauer (IR) Discharge Planning: Pending further clinical work-up
[2018-10-15] MEDS ORDERED: Acetaminophen 325 MG Tablet PO PRN (11:26)
[2018-10-15] MEDS ORDERED: Bisacodyl 10 MG Supp RECTAL PRN (11:26)
--- NOTE | 2018-10-15 12:18 | CT ---
EXAM DATE: 10/15/2018 11:52 AM EST AGE/SEX: 43 years / Female INDICATIONS: Abnormal non-contrast CT. CLINICAL DATA: This is the patient's initial encounter. Patient reports that signs and symptoms have been present for 3 weeks and indicates a pain score of 8/10. MEDICAL/SURGICAL HISTORY: Hepatitis C. Cholecystectomy. ORAL CONTRAST: No oral contrast ingested. RADIATION DOSE: 7.37 CTDI (mGy) COMPARISON: [facility] [place], CT ABDOMEN & PELVIS W/O CONTRAST, 10/15/2018. . TECHNIQUE: Multiple contiguous axial images were obtained through the abdomen and pelvis following b olus infusion of 95 ml Omnipaque 350 (iohexol) nonionic water-soluble contrast as a single exam dos e. No oral contrast ingested. Using automated exposure control and adjustment of the mA and/or kV ac cording to patient size, radiation dose was kept as low as reasonably achievable to obtain optimal di agnostic quality images. DICOM format image data is available electronically for review and comparis on. FINDINGS: There is a complex collection in the left flank musculature, mainly involving and deep to the iliacus muscle however also appearing to partly involve the psoas muscle and the deep abdominal obliques pos teriorly at and just above the level of the iliac crest. The process extends from about the L3 level down nearly to the inguinal region with multilocular fluid density collections showing mild periphera l enhancement. I do not see any evidence of hemorrhage. There is some chronic appearing disc space da mage at L4-5 and additional chronic appearing resorptive changes involving the ipsilateral left poste rior facet joint, however these bony changes appear old. They may relate to prior episode of discitis and osteomyelitis, however I do not see anything to specifically suggest ongoing active discitis. Elsewhere, a small low density in the right lobe of liver has an appearance most suggestive of william ioma. The spleen, pancreas, adrenals and right kidney are unremarkable. There is mild left-sided hydr onephrosis which may relate to some degree of ureteral swelling/involvement associated with the above described process. There is a small left adnexal cyst and minimal free pelvic fluid identified. The bowel structures are nondilated throughout. Small hiatal hernia noted. There is mild atherosclerotic vascular disease. CONCLUSION: Complex collection in the left retroperitoneal and flank musculature, felt most likely abscess. Percu taneous drainage under CT guidance does appear feasible Electronically signed by: Ronan Sauer MD 10/15/2018 12:17 PM EST
[2018-10-15] MEDS ORDERED: LORazepam 1 MG Tablet PO PRN (12:24)
[2018-10-15] MEDS: Sod Chloride 0.9% Inj 1,000 ML IV.CONT SCH ×2 (12:41→20:48)
[2018-10-15] MEDS: Ketorolac Inj 30 MG/ML (IVP) Vial IV.PUSH PRN ×2 (12:42→18:26)
[2018-10-15] MEDS ORDERED: Vancomycin Consult Pharmacy OTHER PRN (12:47)
[2018-10-15] MEDS: HYDROmorphone PF Inj 2 MG/ML Vial IV.PUSH PRN ×2 (14:02→21:00)
[2018-10-15 15:02] LABS: Activated Partial Thrombo Time 31.8 sec (23.4-31.7); Prothrombin Time 10.6 sec (9.8-11.6)
--- NOTE | 2018-10-15 15:47 | ECG ---
Date Performed: 10/15/2018 Time Performed: 08:44:17 PTAGE: 43 years EKG: SINUS TACHYCARDIA ABNORMAL RHYTHM ECG PREVIOUS TRACING : 03/23/2005 07.37 Compared to previous tracing, heart rate is faster. Otherwi se no significant serial change DOCTOR: Massimo Pike Interpretating Date/Time 10/15/2018 15:45:17
--- NOTE | 2018-10-15 16:17 | P.PN ---
Subjective Interval history: Not seen Physical Exam Vital signs: Vital Signs 10/15/18 08:27 10/15/18 08:42 10/15/18 08:51 Temperature 98.5 F 98.7 F Pulse Rate 122 H 115 H 112 H Respiratory Rate 24 20 Blood Pressure 129/68 136/64 Pulse Oximetry 100 99 10/15/18 08:52 10/15/18 10:28 10/15/18 12:28 Temperature Pulse Rate 85 Respiratory Rate 20 Blood Pressure 114/63 Pulse Oximetry 97 96 96 10/15/18 12:31 10/15/18 13:34 10/15/18 14:01 Temperature 98.2 F Pulse Rate 83 Respiratory Rate 20 16 Blood Pressure 100/59 L 105/59 L Pulse Oximetry 98 Intake & Output 10/14/18 10/15/18 10/15/18 18:59 06:59 18:59 Intake Total 2099 Balance 2099 Weight 68.039 kg Intake: IV 2099 NS Inj 1,000 ML @ 1000 mls/hr 1999 / 1999 IV.SIG BOLUS [facility] Rx#:[id number] Flagyl 500 MG Inj 100 ML @ 100 100 / 100 mls/hr IV.SIG Q8H [facility] Rx#: [id number] Other: Date of Last Bowel Movement 10/11/18 Weight On Admission 68.039 kg Narrative: GENERAL: WN, WD female laying in bed appearing uncomfortable and in pain. Speaking in short sentences secondary to pain. SKIN: Warm and dry. No rash or jaundice. CHEST: Pain not reproducible. HEART: RRR no m/r/g. LUNGS: Anterior lung sounds CTAB without wheezes or crackles. Patient report she cannot sit up secondary to pain. ABDOMEN: +BS, soft, NT, ND. BACK: Patient does not allow me to examine her back. Minimal pressure over her left flank causes significant tenderness. EXTREMITIES: No LE edema. Calves supple and nontender. 2+ pedal pulses. NEURO: Awake and alert. Nonfocal. Results - Labs CBC & Chem 7: 10/15/18 08:50 10/15/18 08:50 Laboratory Results - last 24 hr 10/15/18 10/15/18 10/15/18 08:50 08:50 09:35 WBC 13.7 H RBC 3.77 L Hgb 10.6 L Hct 31.8 L MCV 84.4 MCH 28.1 MCHC 33.2 RDW 15.3 Plt Count 565 H MPV 7.4 Neut % (Auto) 82.9 H Lymph % (Auto) 11.0 [place] % (Auto) 4.7 Eos % (Auto) 0.9 Baso % (Auto) 0.5 Neut # (Auto) 11.4 H Lymph # (Auto) 1.5 [place] # (Auto) 0.6 Eos # (Auto) 0.1 Baso # (Auto) 0.1 WBC Differential . Differential Comment Auto diff final PT INR APTT Sodium 135 L Potassium 3.8 Chloride 101 Carbon Dioxide 27.0 Anion Gap 7 BUN 10 Creatinine 0.71 Estimated GFR 89 Random Glucose 111 H Lactic Acid Calcium 8.8 Magnesium 1.7 Total Bilirubin 0.2 AST 21 ALT 22 Alkaline Phosphatase 117 Troponin I Less than 0.02 L Total Protein 8.0 Albumin 2.7 L Lipase 44 L Urine Color Urine Clarity Urine pH Ur Specific [place] Urine Protein Urine Glucose (UA) Urine Ketones Urine Occult Blood Urine Nitrate Urine Bilirubin Urine Urobilinogen Ur Leukocyte Esterase Urine RBC Urine WBC Ur Squamous Epith Cells Micro UA Comment Ur Microscopic Review Urine Culture Comments Urine Opiates Screen Neg Ur Barbiturates Screen Neg Ur Amphetamines Screen Neg U Benzodiazepines Scrn Neg Urine Cocaine Screen Pos H U Cannabinoids Screen Neg 10/15/18 10/15/18 10/15/18 09:35 10:08 14:33 WBC RBC Hgb Hct MCV MCH MCHC RDW Plt Count MPV Neut % (Auto) Lymph % (Auto) [place] % (Auto) Eos % (Auto) Baso % (Auto) Neut # (Auto) Lymph # (Auto) [place] # (Auto) Eos # (Auto) Baso # (Auto) WBC Differential Differential Comment PT INR APTT Sodium Potassium Chloride Carbon Dioxide Anion Gap BUN Creatinine Estimated GFR Random Glucose Lactic Acid 1.2 Calcium Magnesium Total Bilirubin AST ALT Alkaline Phosphatase Troponin I Less than 0.02 L Total Protein Albumin Lipase Urine Color Yellow Urine Clarity Hazy H Urine pH 6.0 Ur Specific [place] 1.012 Urine Protein Negative Urine Glucose (UA) Negative Urine Ketones Negative Urine Occult Blood Small H Urine Nitrate Negative Urine Bilirubin Negative Urine Urobilinogen 2.0 H Ur Leukocyte Esterase Negative Urine RBC 1 Urine WBC 1 Ur Squamous Epith Cells 3 Micro UA Comment Culture not ind Ur Microscopic Review Not Reportable Urine Culture Comments Culture not ind Urine Opiates Screen Ur Barbiturates Screen Ur Amphetamines Screen U Benzodiazepines Scrn Urine Cocaine Screen U Cannabinoids Screen 10/15/18 14:33 WBC RBC Hgb Hct MCV MCH MCHC RDW Plt Count MPV Neut % (Auto) Lymph % (Auto) [place] % (Auto) Eos % (Auto) Baso % (Auto) Neut # (Auto) Lymph # (Auto) [place] # (Auto) Eos # (Auto) Baso # (Auto) WBC Differential Differential Comment PT 10.6 INR 1.0 APTT 31.8 H Sodium Potassium Chloride Carbon Dioxide Anion Gap BUN Creatinine Estimated GFR Random Glucose Lactic Acid Calcium Magnesium Total Bilirubin AST ALT Alkaline Phosphatase Troponin I Total Protein Albumin Lipase Urine Color Urine Clarity Urine pH Ur Specific [place] Urine Protein Urine Glucose (UA) Urine Ketones Urine Occult Blood Urine Nitrate Urine Bilirubin Urine Urobilinogen Ur Leukocyte Esterase Urine RBC Urine WBC Ur Squamous Epith Cells Micro UA Comment Ur Microscopic Review Urine Culture Comments Urine Opiates Screen Ur Barbiturates Screen Ur Amphetamines Screen U Benzodiazepines Scrn Urine Cocaine Screen U Cannabinoids Screen - Imaging Impressions Chest X-Ray 10/15/18 08:38 CONCLUSION: Negative examination. Abdomen/Pelvis CT 10/15/18 08:41 CONCLUSION: 1. Abnormal exam with what appears to be possibly a large left retroperitoneal hemorrhage, however, given the interspersed fat along the superior lateral margin of this area there is concern for possible fat-containing mass such as liposarcoma and further evaluation with contrast-enhanced CT or MRI is recommended to exclude an enhancing mass. There is extension of the inflammatory changes identified within the left subcutaneous fatty tissues. This results in mild left-sided hydronephrosis without evidence of distal obstructing stone. Abdomen/Pelvis CT 10/15/18 10:15 CONCLUSION: Complex collection in the left retroperitoneal and flank musculature, felt most likely abscess. Percutaneous drainage under CT guidance does appear feasible Assessment and Plan - Assessment (1) Sepsis Code(s): A41.9 - Sepsis, unspecified organism Status: Acute (2) Retroperitoneal fluid collection Code(s): R18.8 - Other ascites Status: Acute (3) Chest pain Code(s): R07.9 - Chest pain, unspecified Status: Acute - Plan 43 YOWF with history of chronic back pain, hepatitic C, and polysubstance abuse admitted for progressive left flank, abdominal, and chest pain with CT A/P showing possibly a large retroperitoneal fluid collection. 1. Sepsis - Meets sepsis criteria based on WBC>12k, tachycardia, and source possible intra -abdominal infection/abscess - Lactic acid WNL - Bolused in the ED - Continue IV fluids - Check blood cultures 2. Intraabdominal fluid collection vs. mass - WBC elevated to 13.7 with left shift - Lipase negative - CT A/P noncontrast showing what appears to be possibly a large left retroperitoneal hemorrhage, however, given the interspersed fat along the superior lateral margin of this area there is concern for possible fat- containing mass such as liposarcoma and further evaluation with contrast- enhanced CT or MRI is recommended to exclude an enhancing mass. There is extension of the inflammatory changes identified within the left subcutaneous fatty tissues. This results in mild left-sided hydronephrosis without evidence of distal obstructing stone - CT A/P with contrast showed complex collection in the left retroperitoneal and flank musculature felt to be mostly like an abscess - D/w IR who feels the collection is amenable to CT-guided drainage - Will order fluid culture and Gram stain - Continue broad-spectrum IV antibiotics to cover intraabdominal source (since allergic to PCN will treat with vancomycin, Aztreonam, and Flagyl) - Consult ID - Antiemetics - IV fluids - Pain control (Toradol with Dilaudid for breakthrough) 3. Chest pain - Possibly secondary to above vs. anxiety but other differentials to consider include ACS, costochondritis, PE, PNA - CXR personally reviewed by me. Lungs are clear with no infiltrates or effusion - Troponin negative, will trend Q6 x 2 - Ativan PRN anxiety 4. Normocytic anemia - Hb 10.6, Hct 31.8 - Comparison of labs from prior visits in 2017 show this is new - She endorses some occasional BRBPR which she attributes to hemorrhoids - Anemia likely secondary to intraabdominal process with some associated (but not active) hemorrhage - Continue to monitor 5. Polysubstance abuse - Patient admits to taking some nonprescribed methadone but denies any other drug use aside from her Lortab that's prescribed - UDS + for cocaine 6. Thrombocytosis - Platelets 565, likely reactive from infection - Continue to monitor 7. Hepatitis C, treatment naive - LFTs WNL - Avoid hepatotoxic agents DVT prophylaxis: SCDs, hold chemical anticoagulation for procedure Code Status: FULL Discharge Planning: Pending further clinical work-up
[2018-10-15] MEDS: Senna/Docusate Sodium 8.6/50 MG Tablet PO SCH (20:49)
[2018-10-15] MEDS: Vancomycin Inj 1,000 MG in Sodium Chlor 0.9% Inj 250 ML IV.SIG SCH (20:49)
[2018-10-15] MEDS: Budesonide-Formoterol 160/4.5 MCG 6 GM Inhaler INH SCH (20:51)
[2018-10-16] MEDS: HYDROmorphone PF Inj 2 MG/ML Vial IV.PUSH PRN ×5 (01:57→21:52)
[2018-10-16] MEDS: Ketorolac Inj 30 MG/ML (IVP) Vial IV.PUSH PRN ×3 (03:46→20:21)
[2018-10-16 06:23] LABS: Baso % (Auto) 0.4 % (0.0-2.0); Eos # (Auto) 0.1 th/mm3 (0.0-0.4); Eos % (Auto) 0.8 % (0.0-4.0); Hematocrit 26.1 % (35.0-46.0); Hemoglobin 8.5 gm/dL (11.6-15.3); Lymph % (Auto) 9.8 % (9.0-44.0); Mean Corpuscular HGB Conc 32.7 % (32.0-36.0); Mean Corpuscular Hemoglobin 27.9 pg (27.0-34.0); Mean Corpuscular Volume 85.4 fL (80.0-100.0); Mean Platelet Volume 7.6 fL (7.0-11.0); Mono # (Auto) 0.5 th/mm3 (0.0-0.9); Mono % (Auto) 4.9 % (0.0-8.0); Neut % (Auto) 84.1 % (16.0-70.0); Platelet Count 443 th/mm3 (150-450); Red Blood Count 3.06 mil/mm3 (4.00-5.30); Red Cell Distribution Width 15.3 % (11.6-17.2); White Blood Count 10.7 th/mm3 (4.0-11.0)
[2018-10-16 06:37] LABS: Anion Gap 7 meq/L (5-15); Blood Urea Nitrogen 9 mg/dL (7-18); Calcium 8.2 mg/dL (8.5-10.1); Carbon Dioxide 27.3 meq/L (21.0-32.0); Chloride 104 meq/L (98-107); Glomerular Filtration Rate Greater Than 89 mL/min (>89); Glucose,Random 80 mg/dL (74-106); Potassium 4.1 meq/L (3.5-5.1); Sodium 138 meq/L (136-145)
[2018-10-16] MEDS: Budesonide-Formoterol 160/4.5 MCG 6 GM Inhaler INH SCH ×2 (08:35→20:21)
[2018-10-16] MEDS: Sod Chloride 0.9% Inj 1,000 ML IV.CONT SCH ×4 (08:36→20:22)
[2018-10-16] MEDS: Vancomycin Inj 1,000 MG in Sodium Chlor 0.9% Inj 250 ML IV.SIG SCH ×2 (09:25→20:21)
[2018-10-16] MEDS: Senna/Docusate Sodium 8.6/50 MG Tablet PO SCH ×2 (09:53→20:21)
--- NOTE | 2018-10-16 09:54 | P.CONID ---
History of Present Illness Service: Infectious disease Consult date: 10/16/18 Requesting Physician: Susan Judge Reason for Consult: Evaluate patient with possible retroperitoneal abscess Primary Care Provider: London Cary MD History of Present Illness: Patient seen and examined. Records reviewed. Patient is a 43-year-old female, presented to the hospital for further evaluation of 3-week history of worsening left flank pain and left-sided abdominal pain. Patient stated that back in June she is started having pain in her back and in the left flank area. She went to the emergency room, and was told that she has degenerative disease in the disc and she was discharged. The pain eventually got better but the pain started going down her left lower extremity. She also had noted that her leg was swollen. The swelling gradually improve over time, and she has had problem ambulating. The last 3 weeks the pain in her back came back and this time it was also radiating to the left side of her abdomen. Was progressively worsening. She was having some fevers and chills. She denies any urinary retention or incontinence, and no stool incontinence. Patient has a remote history of IV drug use, but has used cocaine in other ways. She presented back to the hospital, and imaging study is showing a complex fluid collection in the retroperitoneal area. She has had some low-grade fevers. Her WBC is 13,000. Urinalysis okay. Infectious disease consultation has been requested to assist with evaluation and treatment. Patient is currently on n.p.o. There is an IR consult to do a diagnostic tap of the fluid collection, possibly drainage. Review of Systems Constitutional: Reports chills, Reports fever(s), Reports night sweats Eyes: Denies discharge, Denies dry eyes Ears, Nose, Mouth, and Throat: Denies dental pain, Denies difficulty swallowing , Denies ear pain, Denies facial pain, Denies nasal discharge, Denies sore throat Cardiovascular: Reports leg swelling, Denies chest pain, Denies shortness of breath Respiratory: Denies chest congestion, Denies cough, Denies shortness of breath Gastrointestinal: Reports abdominal pain, Denies difficulty swallowing, Denies loose stools, Denies nausea, Denies pain with swallowing, Denies vomiting Genitourinary: Denies difficulty starting urination, Denies difficulty urinating , Denies painful urination Musculoskeletal: Reports back pain, Reports joint pain Skin/Breast: Denies rash, Denies sores, Denies wounds Neurologic: Reports abnormal walking, Denies headache(s), Denies numbness PMFSH - History History Provided By: Patient - Medical History Medical History: Medical History (Last Reviewed 10/16/18 @ 10:00 by María Hawk MD) Endometriosis History of intravenous drug abuse Substance abuse Hepatitis C - Surgical History Surgical History: Surgical History (Last Reviewed 10/16/18 @ 10:00 by María Hawk MD) History of hand surgery Hx of cholecystectomy - Family History Family History: Family History (Last Reviewed 10/16/18 @ 10:00 by María Hawk MD) Mother Heart disease Father Heart disease Grandparent Breast cancer Aunt Breast cancer - Tobacco History Second Hand Smoke Exposure: Yes Tobacco Use In Past 30 Days: Yes Smoking Status: Current every day smoker Tobacco Type: Cigarettes - Alcohol History How Often Do You Have a Drink Containing Alcohol: 2 to 4 times a month - Substance Use History Substance History: Active Abuse - Substance Use Type Other Type: Pt is unsure what drug she was given at a [facility] Status: Active Route Used: By Mouth Crack/Cocaine Status: Active Route Used: Inhalation - Travel History Recent Travel in the [place] Within the Last 8 Weeks: No Recent Travel Out of the Country Within the Last 8 Weeks: No - Immunization History Tetanus Immunization: Unsure Medications and Allergies Active Medications: Active Medications Acetaminophen (Tylenol) 650 mg PO Q4H PRN PRN Reason: Temp > 100.4 Al Hydroxide/Mg Hydroxide (Milk Of Vignesh Painting) 30 ml PO Q12H PRN PRN Reason: Mild Constipation Last Admin: 10/15/18 12:41 Dose: 30 ml Albuterol (Duoneb Neb (Prn)) 1 ampul NEB Q4HR NEB PRN PRN Reason: SHORTNESS OF BREATH/WHEEZING Bisacodyl (Dulcolax Supp) 10 mg RECTAL DAILY PRN PRN Reason: SEVERE CONSITIPATION Budesonide/Formoterol Fumarate (Symbicort 160/4.5 Mcg Inh) 2 puff INH BID [facility] Last Admin: 10/16/18 08:35 Dose: 2 puff Hydromorphone HCl (Dilaudid Pf Inj) 2 mg IV.PUSH Q4H PRN PRN Reason: BREAKTHROUGH PAIN Last Admin: 10/16/18 09:34 Dose: 2 mg Sodium Chloride (Ns Inj) 1,000 mls @ 100 mls/hr IV.CONT .Q10H [facility] Last Infusion: 10/16/18 08:36 Dose: 100 mls/hr Aztreonam 1,000 mg/ Sodium (Chloride) 100 mls @ 200 mls/hr IV.SIG Q12H [facility] Last Infusion: 10/16/18 09:07 Dose: Infused Vancomycin HCl 1,000 mg/ (Sodium Chloride) 250 mls @ 250 mls/hr IV.SIG Q12H [facility] Last Admin: 10/16/18 09:25 Dose: 250 mls/hr Metronidazole/Sodium Chloride (Flagyl 500 Mg Inj) 100 mls @ 100 mls/hr IV.SIG Q8H [facility] Last Infusion: 10/16/18 06:13 Dose: Infused Ketorolac Tromethamine (Toradol Inj) 30 mg IV.PUSH Q6H PRN PRN Reason: PAIN SCALE 6 TO 10 Stop: 10/20/18 14:29 Last Admin: 10/16/18 03:46 Dose: 30 mg Lactulose (Lactulose Liq) 30 ml PO DAILY PRN PRN Reason: SEVERE CONSITIPATION Lorazepam (Ativan) 1 mg PO Q6H PRN PRN Reason: ANXIETY Miscellaneous Information ([facility] Ordered Lab Info) 0 each OTHER ONCE ONE Stop: 10/17/18 08:46 Ondansetron HCl (Zofran Inj) 4 mg IV.PUSH Q6H PRN PRN Reason: NAUSEA OR VOMITING Pharmacy Profile Note (Vancomycin Consult Pharmacy) 1 each OTHER UNSCH PRN PRN Reason: Pharmacy to dose Senna/Docusate Sodium (Angelia-Colace) 1 tab PO BID [facility] Last Admin: 10/15/18 20:49 Dose: 1 tab Sennosides (Senokot) 17.2 mg PO Q12H PRN PRN Reason: Moderate Constipation Sodium Chloride (Ns Flush) 2 ml IV.FLUSH PRN PRN PRN Reason: FLUSH AFTER USING IV ACCESS Last Admin: 10/15/18 10:04 Dose: 2 ml Temazepam (Restoril) 15 mg PO HS PRN PRN Reason: INSOMNIA Allergies Allergy/AdvReac Type Severity Reaction Status Date / Time morphine Allergy Severe HIVES-SOB Verified 10/15/18 08:28 penicillin G Allergy Severe SWELLING Verified 10/15/18 08:28 Sulfa (Sulfonamide Allergy Severe SWELLING Verified 10/15/18 08:28 Antibiotics) gabapentin Allergy Weight Gain Verified 10/15/18 08:28 Home Medications Medication Instructions Recorded Confirmed Type alprazolam [Xanax] 1 mg DAILY 10/15/18 10/15/18 History budesonide-formoterol [Symbicort] 2 puff INHALATION BID 10/15/18 10/15/18 History cyclobenzaprine 10 mg PO BID PRN 10/15/18 10/15/18 History Exam Vital signs: Vital Signs 10/15/18 10:28 10/15/18 12:28 10/15/18 12:31 Temperature 98.2 F Pulse Rate 85 83 Respiratory Rate 20 20 Blood Pressure 114/63 100/59 L Pulse Oximetry 96 96 98 10/15/18 13:34 10/15/18 14:01 10/15/18 16:16 Temperature 98.4 F Pulse Rate 78 Respiratory Rate 16 20 Blood Pressure 105/59 L 89/54 L Pulse Oximetry 96 10/15/18 16:20 10/15/18 20:00 10/15/18 23:57 Temperature 98.2 F 99.8 F H Pulse Rate 88 86 Respiratory Rate 20 20 Blood Pressure 102/68 102/74 111/64 Pulse Oximetry 97 100 10/16/18 03:26 10/16/18 03:52 10/16/18 07:56 Temperature 98.8 F Pulse Rate 88 Respiratory Rate 18 Blood Pressure 92/56 L Pulse Oximetry 96 96 98 10/16/18 08:00 Temperature Pulse Rate 81 Respiratory Rate 16 Blood Pressure 109/55 L Pulse Oximetry 97 Intake & Output 10/15/18 10/16/18 10/16/18 18:59 06:59 18:59 Intake Total 2099 4360 / 4360 900 / 900 Output Total 400 / 400 Balance 2099 3960 / 3960 900 / 900 Weight 68.039 kg 75.9 kg Intake: IV 2099 1550 / 1550 900 / 900 NS Inj 1,000 ML @ 100 mls/hr IV 1000 / 1000 800 / 800 .CONT .Q10H [facility] Rx#:[id number] Azactam Inj 1,000 MG In NS Inj 100 / 100 100 / 100 100 ML @ 200 mls/hr IV.SIG Q12H [facility] Rx#:[id number] NS Inj 1,000 ML @ 1000 mls/hr 1999 / 1999 IV.SIG BOLUS [facility] Rx#:[id number] Vancomycin Inj 1,000 MG In NS 250 / 250 Inj 250 ML @ 250 mls/hr IV.SIG Q12H [facility] Rx#:[id number] Flagyl 500 MG Inj 100 ML @ 100 100 / 100 200 / 200 mls/hr IV.SIG Q8H [facility] Rx#: [id number] Oral 1060 / 1060 Other 1750 / 1750 Output: Urine 400 / 400 Other: Other Intake Source Saline Solution # Voids 3 Date of Last Bowel Movement 10/11/18 10/11/18 Weight On Admission 68.039 kg Narrative: Physical examination GENERAL: Patient is a well-nourished, well-developed female, awake and alert , not in respiratory distress. SKIN: Cool and dry. No generalized rash, no ecchymoses and no evidence of embolic lesions. HEAD: Atraumatic. Normocephalic. No temporal wasting, or tenderness. EYES: [place] conjunctiva. No petechia or hemorrhage. Pupils equal, round and reactive to light. Extraocular movements full and intact. No scleral icterus. No injection or drainage. EARS, NOSE AND THROAT: Nose without bleeding or purulent nasal discharge. No sinus tenderness. Mucous membranes pink and moist. No oral lesions noted. No exudate. No oral thrush. NECK: Trachea midline. Supple and not tender, no meningeal signs CARDIOVASCULAR: Regular rate and rhythm. No murmurs, rubs or gallops heard RESPIRATORY: Clear to auscultation. Breath sounds equal bilaterally. No rales , wheezing or rhonchi ABDOMEN: Soft, nondistended. Has tenderness on L side of abdomen. Bowel sounds present and normoactive. No guarding. No rebound. No organomegaly. EXTREMITIES: No clubbing, cyanosis, or edema. No joint effusion, has good ROM. No calf tenderness. Well perfused and warm. NEUROLOGICAL: Awake and alert. Cranial nerves grossly intact. Motor grossly within normal limits. PSYCHIATRIC: Normal affect, calm and cooperative. LINE: No evidence of infection Results - Labs CBC & Chem 7: 10/16/18 04:44 10/16/18 04:44 Labs: Laboratory Results - last 24 hr 10/15/18 10/15/18 10/15/18 09:35 10:08 14:33 WBC RBC Hgb Hct MCV MCH MCHC RDW Plt Count MPV Neut % (Auto) Lymph % (Auto) [place] % (Auto) Eos % (Auto) Baso % (Auto) Neut # (Auto) Lymph # (Auto) [place] # (Auto) Eos # (Auto) Baso # (Auto) WBC Differential Differential Comment PT INR APTT Sodium Potassium Chloride Carbon Dioxide Anion Gap BUN Creatinine Estimated GFR Random Glucose Lactic Acid 1.2 Calcium Troponin I Less than 0.02 L Urine Opiates Screen Neg Ur Barbiturates Screen Neg Ur Amphetamines Screen Neg U Benzodiazepines Scrn Neg Urine Cocaine Screen Pos H U Cannabinoids Screen Neg 10/15/18 10/15/18 10/16/18 14:33 20:10 04:44 WBC 10.7 RBC 3.06 L Hgb 8.5 L D Hct 26.1 L MCV 85.4 MCH 27.9 MCHC 32.7 RDW 15.3 Plt Count 443 MPV 7.6 Neut % (Auto) 84.1 H Lymph % (Auto) 9.8 [place] % (Auto) 4.9 Eos % (Auto) 0.8 Baso % (Auto) 0.4 Neut # (Auto) 9.0 H Lymph # (Auto) 1.0 [place] # (Auto) 0.5 Eos # (Auto) 0.1 Baso # (Auto) 0.0 WBC Differential . Differential Comment Auto diff final PT 10.6 INR 1.0 APTT 31.8 H Sodium Potassium Chloride Carbon Dioxide Anion Gap BUN Creatinine Estimated GFR Random Glucose Lactic Acid Calcium Troponin I Less than 0.02 L Urine Opiates Screen Ur Barbiturates Screen Ur Amphetamines Screen U Benzodiazepines Scrn Urine Cocaine Screen U Cannabinoids Screen 10/16/18 04:44 WBC RBC Hgb Hct MCV MCH MCHC RDW Plt Count MPV Neut % (Auto) Lymph % (Auto) [place] % (Auto) Eos % (Auto) Baso % (Auto) Neut # (Auto) Lymph # (Auto) [place] # (Auto) Eos # (Auto) Baso # (Auto) WBC Differential Differential Comment PT INR APTT Sodium 138 Potassium 4.1 Chloride 104 Carbon Dioxide 27.3 Anion Gap 7 BUN 9 Creatinine 0.50 Estimated GFR Greater than 89 Random Glucose 80 Lactic Acid Calcium 8.2 L Troponin I Urine Opiates Screen Ur Barbiturates Screen Ur Amphetamines Screen U Benzodiazepines Scrn Urine Cocaine Screen U Cannabinoids Screen - Imaging Impressions Chest X-Ray 10/15/18 08:38 CONCLUSION: Negative examination. Abdomen/Pelvis CT 10/15/18 08:41 CONCLUSION: 1. Abnormal exam with what appears to be possibly a large left retroperitoneal hemorrhage, however, given the interspersed fat along the superior lateral margin of this area there is concern for possible fat-containing mass such as liposarcoma and further evaluation with contrast-enhanced CT or MRI is recommended to exclude an enhancing mass. There is extension of the inflammatory changes identified within the left subcutaneous fatty tissues. This results in mild left-sided hydronephrosis without evidence of distal obstructing stone. Abdomen/Pelvis CT 10/15/18 10:15 CONCLUSION: Complex collection in the left retroperitoneal and flank musculature, felt most likely abscess. Percutaneous drainage under CT guidance does appear feasible Assessment and Plan - Plan Impression L retroperitoneal and flank complex fluid collection ?old Lumbar discitis on CT Admits to remote IVDU, has been using cocaine but not IV Allergy to PCN, has tolerated cephalosporins Recommendation Continue IV Azactam, Flagyl for now Continue IV Vancomycin To get aspiration or drainage of fluid by IR Will also get MRI lumbar spine Follow C/S Follow temps Monitor progress I will follow along with you Thank you for this consultation
--- NOTE | 2018-10-16 10:13 | P.PN ---
Subjective Interval history: Follow-up lumbar pain. Reports of significant left flank pain awaiting IR drainage denies weakness or numbness. No incontinence. History of MRSA. Physical Exam Vital signs: Vital Signs 10/15/18 10:28 10/15/18 12:28 10/15/18 12:31 Temperature 98.2 F Pulse Rate 85 83 Respiratory Rate 20 20 Blood Pressure 114/63 100/59 L Pulse Oximetry 96 96 98 10/15/18 13:34 10/15/18 14:01 10/15/18 16:16 Temperature 98.4 F Pulse Rate 78 Respiratory Rate 16 20 Blood Pressure 105/59 L 89/54 L Pulse Oximetry 96 10/15/18 16:20 10/15/18 20:00 10/15/18 23:57 Temperature 98.2 F 99.8 F H Pulse Rate 88 86 Respiratory Rate 20 20 Blood Pressure 102/68 102/74 111/64 Pulse Oximetry 97 100 10/16/18 03:26 10/16/18 03:52 10/16/18 07:56 Temperature 98.8 F Pulse Rate 88 Respiratory Rate 18 Blood Pressure 92/56 L Pulse Oximetry 96 96 98 10/16/18 08:00 Temperature Pulse Rate 81 Respiratory Rate 16 Blood Pressure 109/55 L Pulse Oximetry 97 Intake & Output 10/15/18 10/16/18 10/16/18 18:59 06:59 18:59 Intake Total 2100 / 2100 4360 / 4360 900 / 900 Output Total 400 / 400 Balance 2099 / 2100 3960 / 3960 900 / 900 Weight 68.039 kg 75.9 kg Intake: IV 2100 / 2100 1550 / 1550 900 / 900 NS Inj 1,000 ML @ 100 mls/hr IV 1000 / 1000 800 / 800 .CONT .Q10H COLLEEN Rx#:[id number] Azactam Inj 1,000 MG In NS Inj 100 / 100 100 / 100 100 ML @ 200 mls/hr IV.SIG Q12H COLLEEN Rx#:[id number] NS Inj 1,000 ML @ 1000 mls/hr 1999 / 1999 IV.SIG BOLUS COLLEEN Rx#:[id number] Vancomycin Inj 1,000 MG In NS 250 / 250 Inj 250 ML @ 250 mls/hr IV.SIG Q12H COLLEEN Rx#:[id number] Flagyl 500 MG Inj 100 ML @ 100 100 / 100 200 / 200 mls/hr IV.SIG Q8H COLLEEN Rx#: [id number] Oral 1060 / 1060 Other 1750 / 1750 Output: Urine 400 / 400 Other: Other Intake Source Saline Solution # Voids 3 Date of Last Bowel Movement 10/11/18 10/11/18 Weight On Admission 68.039 kg Narrative: GENERAL: WN, WD female laying in bed appearing uncomfortable due to pain SKIN: Warm and dry. No rash or jaundice. CHEST: Pain not reproducible. HEART: RRR no m/r/g. LUNGS: Anterior lung sounds CTAB without wheezes or crackles. Patient report she cannot sit up secondary to pain. ABDOMEN: +BS, soft, NT, ND. BACK: Minimal pressure over her left flank causes significant tenderness. No redness EXTREMITIES: No LE edema. Calves supple and nontender. 2+ pedal pulses. NEURO: Awake and alert. Nonfocal. Results - Labs CBC & Chem 7: 10/16/18 04:44 10/16/18 04:44 Laboratory Results - last 24 hr 10/15/18 10/15/18 10/15/18 10:08 14:33 14:33 WBC RBC Hgb Hct MCV MCH MCHC RDW Plt Count MPV Neut % (Auto) Lymph % (Auto) [place] % (Auto) Eos % (Auto) Baso % (Auto) Neut # (Auto) Lymph # (Auto) [place] # (Auto) Eos # (Auto) Baso # (Auto) WBC Differential Differential Comment PT 10.6 INR 1.0 APTT 31.8 H Sodium Potassium Chloride Carbon Dioxide Anion Gap BUN Creatinine Estimated GFR Random Glucose Lactic Acid 1.2 Calcium Troponin I Less than 0.02 L 10/15/18 10/16/18 10/16/18 20:10 04:44 04:44 WBC 10.7 RBC 3.06 L Hgb 8.5 L D Hct 26.1 L MCV 85.4 MCH 27.9 MCHC 32.7 RDW 15.3 Plt Count 443 MPV 7.6 Neut % (Auto) 84.1 H Lymph % (Auto) 9.8 [place] % (Auto) 4.9 Eos % (Auto) 0.8 Baso % (Auto) 0.4 Neut # (Auto) 9.0 H Lymph # (Auto) 1.0 [place] # (Auto) 0.5 Eos # (Auto) 0.1 Baso # (Auto) 0.0 WBC Differential . Differential Comment Auto diff final PT INR APTT Sodium 138 Potassium 4.1 Chloride 104 Carbon Dioxide 27.3 Anion Gap 7 BUN 9 Creatinine 0.50 Estimated GFR Greater than 89 Random Glucose 80 Lactic Acid Calcium 8.2 L Troponin I Less than 0.02 L - Imaging Impressions Chest X-Ray 10/15/18 08:38 CONCLUSION: Negative examination. Abdomen/Pelvis CT 10/15/18 10:15 CONCLUSION: Complex collection in the left retroperitoneal and flank musculature, felt most likely abscess. Percutaneous drainage under CT guidance does appear feasible - Procedures For drainage of lumbar/retroperitoneal abscess Assessment and Plan - Assessment (1) Sepsis Code(s): A41.9 - Sepsis, unspecified organism Status: Acute (2) Retroperitoneal fluid collection Code(s): R18.8 - Other ascites Status: Acute (3) Chest pain Code(s): R07.9 - Chest pain, unspecified Status: Acute - Plan 43 YOWF with history of chronic back pain, hepatitic C, and polysubstance abuse admitted for progressive left flank, abdominal, and chest pain with CT A/P showing possibly a large retroperitoneal fluid collection. 1. Sepsis - Meets sepsis criteria based on WBC>12k, tachycardia, and source possible intra -abdominal infection/abscess - Lactic acid WNL - Bolused in the ED - Continue IV fluids - Check blood cultures negative to date 2. Intraabdominal fluid collection vs. mass - WBC elevated to 13.7 with left shift - Lipase negative - CT A/P noncontrast showing what appears to be possibly a large left retroperitoneal hemorrhage, however, given the interspersed fat along the superior lateral margin of this area there is concern for possible fat- containing mass such as liposarcoma and further evaluation with contrast- enhanced CT or MRI is recommended to exclude an enhancing mass. There is extension of the inflammatory changes identified within the left subcutaneous fatty tissues. This results in mild left-sided hydronephrosis without evidence of distal obstructing stone - CT A/P with contrast showed complex collection in the left retroperitoneal and flank musculature felt to be mostly like an abscess - D/w IR who feels the collection is amenable to CT-guided drainage - Will order fluid culture and Gram stain - Continue broad-spectrum IV antibiotics to cover intraabdominal source (since allergic to PCN will treat with vancomycin, Aztreonam, and Flagyl) - Consult ID - Antiemetics - IV fluids - Pain control (Toradol with Dilaudid for breakthrough) counseled regarding narcotics. Heating pads per 3. Chest pain - Possibly secondary to above vs. anxiety but other differentials to consider include ACS, costochondritis, PE, PNA - CXR personally reviewed by me. Lungs are clear with no infiltrates or effusion - Ruled out for GA - Ativan PRN anxiety 4. Normocytic anemia. No gross bleeding - Slightly worse secondary to diluton. Hemodynamically stable per - Comparison of labs from prior visits in 2017 show this is new - She endorses some occasional BRBPR which she attributes to hemorrhoids - Anemia likely secondary to intraabdominal process with some associated (but not active) hemorrhage - Continue to monitor 5. Polysubstance abuse - Patient admits to taking some nonprescribed methadone but denies any other drug use aside from her Lortab that's prescribed - UDS + for cocaine 6. Thrombocytosis - Platelets 565, likely reactive from infection - Continue to monitor 7. Hepatitis C, treatment naive - LFTs WNL - Avoid hepatotoxic agents DVT prophylaxis: SCDs, hold chemical anticoagulation for procedure Code Status: FULL Discharge Planning: She meets inpatient status. Awaiting bed availability to [facility] Pending further clinical work-up
[2018-10-16] MEDS ORDERED: *Meperidine Inj 25 MG/ML Vial PERIprocedural Use ONLY ONE (16:00)
[2018-10-16] MEDS ORDERED: Sugammadex Inj 200 MG/2 ML Vial IV.PUSH ONE (16:05)
[2018-10-16] MEDS ORDERED: fentaNYL Citrate Inj 100 MCG/2 ML Ampul ONE (16:05)
--- NOTE | 2018-10-16 16:29 | CT ---
EXAM DATE: 10/16/2018 4:24 PM EST AGE/SEX: 43 years / Female INDICATIONS: Left pelvic abscess CLINICAL DATA: This is the patient's initial encounter. Patient reports that signs and symptoms have been present for 1 day and indicates a pain score of 4/10. MEDICAL/SURGICAL HISTORY: Hepatitis C. Cholecystectomy. [place] [facility] [place]/15/2018. . BIOPSY SITE: left pelvis DEVICE(S): 8 Fr Skater FLUID: Total volume of 40 mL cyst of cloudy, purulent and bloody fluid was removed. Fluid was sent to lab for ordered studies.. . . PROCEDURE : CT guided drainage of the left pelvis iliopsoas abscess. The risks, benefits and alternatives to the procedure were explained and verbal and written consent w as obtained. Using automated exposure control and adjustment of the mA and/or kV according to patient size, radiation dose was kept as low as reasonably achievable to obtain optimal diagnostic quality i mages. The site was prepped in sterile fashion. Full sterile technique was used, including cap, ma sk, sterile gloves and gown and a large sterile sheet. Hand hygiene and 2% chlorhexidine and/or beta dine/alcohol prep was utilized per protocol for cutaneous antisepsis. The skin and subcutaneous tiss ues were infiltrated with local anesthetic solution. DICOM format image data is available electronic ally for review and comparison. Using CT guidance the prescribed site was localized. Drainage was performed using the prescribed cat heter. The patient tolerated the procedure well and there were no complications. The patient tolerated the procedure well and there were no complications. The patient was sent to post anesthesia recovery in s table condition. CONCLUSION: Uncomplicated CT guided drainage. Electronically signed by: Ronan Sauer MD 10/16/2018 4:28 PM EST
[2018-10-16] MEDS ORDERED: *HYDROmorphone PF Inj 1 MG/ML Ampul PERIprocedural Use ONLY ONE (16:33)
[2018-10-16] MEDS ORDERED: Lidocaine 1%/Epinephrine 1:100,000 Inj 20 ML Vial I-DERMAL ONE (18:28)
[2018-10-16] MEDS ORDERED: *Enalaprilat Inj 1.25 MG/ML Vial IV.PUSH ONE (18:48)
[2018-10-17] MEDS ORDERED: Influenza (Quadrivalent) Vaccine 0.5 ML Syringe IM ONE (01:45)
[2018-10-17] MEDS: Ketorolac Inj 30 MG/ML (IVP) Vial IV.PUSH PRN ×3 (02:09→14:48)
[2018-10-17] MEDS: HYDROmorphone PF Inj 2 MG/ML Vial IV.PUSH PRN ×4 (04:07→21:57)
[2018-10-17] MEDS: Sod Chloride 0.9% Inj 1,000 ML IV.CONT SCH ×2 (06:22→12:49)
[2018-10-17 07:39] LABS: Baso % (Auto) 0.4 % (0.0-2.0); Eos # (Auto) 0.1 th/mm3 (0.0-0.4); Eos % (Auto) 1.4 % (0.0-4.0); Hematocrit 24.5 % (35.0-46.0); Hemoglobin 8.4 gm/dL (11.6-15.3); Lymph # (Auto) 0.7 th/mm3 (1.0-4.8); Lymph % (Auto) 9.6 % (9.0-44.0); Mean Corpuscular HGB Conc 34.3 % (32.0-36.0); Mean Corpuscular Hemoglobin 28.9 pg (27.0-34.0); Mean Corpuscular Volume 84.1 fL (80.0-100.0); Mean Platelet Volume 7.7 fL (7.0-11.0); Mono # (Auto) 0.3 th/mm3 (0.0-0.9); Mono % (Auto) 4.6 % (0.0-8.0); Neut # (Auto) 6.2 th/mm3 (1.8-7.7); Platelet Count 438 th/mm3 (150-450); Red Blood Count 2.92 mil/mm3 (4.00-5.30); Red Cell Distribution Width 15.5 % (11.6-17.2); White Blood Count 7.3 th/mm3 (4.0-11.0)
[2018-10-17 07:55] LABS: Anion Gap 9 meq/L (5-15); Blood Urea Nitrogen 8 mg/dL (7-18); Calcium 7.8 mg/dL (8.5-10.1); Carbon Dioxide 26.5 meq/L (21.0-32.0); Chloride 107 meq/L (98-107); Glomerular Filtration Rate Greater Than 89 mL/min (>89); Glucose,Random 120 mg/dL (74-106); Potassium 3.7 meq/L (3.5-5.1); Sodium 142 meq/L (136-145)
[2018-10-17] MEDS: Senna/Docusate Sodium 8.6/50 MG Tablet PO SCH ×2 (08:29→20:23)
[2018-10-17] MEDS ORDERED: Pharmacy Ordered Lab Info OTHER ONE (08:45)
--- NOTE | 2018-10-17 09:03 | P.PNIM ---
Subjective Interval history: f/u; abscess in no acute distress. has some headache and some pain to the left abdomen at the site of drain. no fever. Physical Exam Vital signs: Vital Signs 10/16/18 12:00 10/16/18 15:56 10/16/18 16:00 Temperature 98.5 F Pulse Rate 90 98 H 95 H Respiratory Rate 18 19 18 Blood Pressure 107/63 109/59 L 102/59 L Pulse Oximetry 95 100 95 10/16/18 16:15 10/16/18 16:30 10/16/18 17:36 Temperature 99.0 F Pulse Rate 92 H 92 H 104 H Respiratory Rate 18 22 16 Blood Pressure 99/62 L 104/59 L 100/65 Pulse Oximetry 95 95 96 10/16/18 20:00 10/16/18 22:18 10/17/18 00:00 Temperature 98.6 F 98.2 F Pulse Rate 104 H 90 82 Respiratory Rate 18 16 Blood Pressure 96/61 L 99/70 L Pulse Oximetry 96 93 L 10/17/18 02:20 10/17/18 04:00 10/17/18 05:35 Temperature 98.2 F 97.9 F Pulse Rate 86 83 88 Respiratory Rate 18 18 Blood Pressure 93/70 L 109/83 Pulse Oximetry 97 99 Intake & Output 10/16/18 10/17/18 10/17/18 18:59 06:59 18:59 Intake Total 2750 / 2750 2150 / 2150 Output Total 100 / 100 100 / 100 Balance 2650 / 2650 2050 / 2050 Weight 75.9 kg Intake: IV 2750 / 2750 2150 / 2150 NS Inj 1,000 ML @ 100 mls/hr IV 2300 / 2300 1600 / 1600 .CONT .Q10H COLLEEN Rx#:[id number] Azactam Inj 1,000 MG In NS Inj 100 / 100 100 / 100 100 ML @ 200 mls/hr IV.SIG Q12H COLLEEN Rx#:[id number] Vancomycin Inj 1,000 MG In NS 250 / 250 250 / 250 Inj 250 ML @ 250 mls/hr IV.SIG Q12H COLLEEN Rx#:[id number] Flagyl 500 MG Inj 100 ML @ 100 100 / 100 200 / 200 mls/hr IV.SIG Q8H COLLEEN Rx#: [id number] Output: Wound Drainage 100 / 100 100 / 100 Left Lateral Abdomen 100 / 100 100 / 100 Other: Date of Last Bowel Movement 10/11/18 - Constitutional no acute distress - Routine Respiratory Exam Present: CTA bilaterally - Routine Cardiovascular Exam Present: RRR - Routine Abdominal Exam Present: soft (drain in place-left abdomen.) - Routine Extremities Exam Comments: no pedal edema. - Routine Neurological Exam Present: alert, oriented X3 Results - Labs CBC & Chem 7: 10/17/18 06:20 10/17/18 06:20 Laboratory Results - last 24 hr 10/17/18 10/17/18 06:20 06:20 WBC 7.3 RBC 2.92 L Hgb 8.4 L Hct 24.5 L MCV 84.1 MCH 28.9 MCHC 34.3 RDW 15.5 Plt Count 438 MPV 7.7 Neut % (Auto) 84.0 H Lymph % (Auto) 9.6 [place] % (Auto) 4.6 Eos % (Auto) 1.4 Baso % (Auto) 0.4 Neut # (Auto) 6.2 Lymph # (Auto) 0.7 L [place] # (Auto) 0.3 Eos # (Auto) 0.1 Baso # (Auto) 0.0 WBC Differential . Differential Comment Auto diff final Sodium 142 Potassium 3.7 Chloride 107 Carbon Dioxide 26.5 Anion Gap 9 BUN 8 Creatinine 0.51 Estimated GFR Greater than 89 Random Glucose 120 H Calcium 7.8 L Microbiology 10/16/18 15:40 Fluid - Other Gram Stain - Final 10/15/18 13:34 Blood - Peripheral Aerobic Blood Culture - Preliminary No growth in 1 day 10/15/18 13:34 Blood - Peripheral Anaerobic Blood Culture - Preliminary No growth in 1 day 10/15/18 13:39 Blood - Peripheral Aerobic Blood Culture - Preliminary No growth in 1 day 10/15/18 13:39 Blood - Peripheral Anaerobic Blood Culture - Preliminary No growth in 1 day - Imaging Impressions Retroperitoneal Abscess Drainage 10/16/18 00:00 CONCLUSION: Uncomplicated CT guided drainage. - Procedures For drainage of lumbar/retroperitoneal abscess Assessment and Plan - Assessment (1) Sepsis Code(s): A41.9 - Sepsis, unspecified organism Status: Acute (2) Retroperitoneal fluid collection Code(s): R18.8 - Other ascites Status: Acute (3) Chest pain Code(s): R07.9 - Chest pain, unspecified Status: Acute - Plan sepsis/ Intraabdominal fluid collection vs. mass - CT A/P noncontrast showing what appears to be possibly a large left retroperitoneal hemorrhage, however, given the interspersed fat along the superior lateral margin of this area there is concern for possible fat- containing mass such as liposarcoma and further evaluation with contrast- enhanced CT or MRI is recommended to exclude an enhancing mass. There is extension of the inflammatory changes identified within the left subcutaneous fatty tissues. This results in mild left-sided hydronephrosis without evidence of distal obstructing stone - CT A/P with contrast showed complex collection in the left retroperitoneal and flank musculature felt to be mostly like an abscess - s/p CT-guided drainage - follow fluid culture and Gram stain - Continue broad-spectrum IV antibiotics to cover intraabdominal source (since allergic to PCN will treat with vancomycin, Aztreonam, and Flagyl) - ID consult appreciated. - Antiemetics - IV fluids - Pain control (Toradol with Dilaudid for breakthrough) counseled regarding narcotics. Heating pads per 3. Chest pain - Possibly secondary to above vs. anxiety but other differentials to consider include ACS, costochondritis, PE, PNA - Lungs are clear with no infiltrates or effusion - Ruled out for VT - Ativan PRN anxiety 4. Normocytic anemia. No gross bleeding - Slightly worse secondary to dilution. Hemodynamically stable per - Comparison of labs from prior visits in 2017 show this is new - She endorses some occasional BRBPR which she attributes to hemorrhoids - Anemia likely secondary to intraabdominal process with some associated (but not active) hemorrhage - Continue to monitor 5. Polysubstance abuse - Patient admits to taking some nonprescribed methadone but denies any other drug use aside from her Lortab that's prescribed - UDS + for cocaine 6. Thrombocytosis - Platelets 565, likely reactive from infection - Continue to monitor 7. Hepatitis C, treatment naive - LFTs WNL - Avoid hepatotoxic agents DVT prophylaxis: SCDs Code Status: FULL Discharge Planning: awaiting the fluid cultures- still has abdominal drain. not ready for discharge.
[2018-10-17] MEDS: Budesonide-Formoterol 160/4.5 MCG 6 GM Inhaler INH SCH ×2 (10:00→20:26)
[2018-10-17] MEDS: Sodium Chloride 0.9% 2 ML Flush BID IV.FLUSH SCH ×2 (10:00→20:23)
[2018-10-17] MEDS: Vancomycin Inj 1,000 MG in Sodium Chlor 0.9% Inj 250 ML IV.SIG SCH ×3 (11:52→20:22)
[2018-10-18] MEDS: Ketorolac Inj 30 MG/ML (IVP) Vial IV.PUSH PRN ×2 (03:15→09:35)
[2018-10-18] MEDS: Vancomycin Inj 1,000 MG in Sodium Chlor 0.9% Inj 250 ML IV.SIG SCH ×3 (03:15→21:13)
[2018-10-18] MEDS: Sod Chloride 0.9% Inj 1,000 ML IV.CONT SCH ×3 (03:15→21:12)
[2018-10-18] MEDS: HYDROmorphone PF Inj 2 MG/ML Vial IV.PUSH PRN ×4 (04:53→21:13)
[2018-10-18] MEDS: Budesonide-Formoterol 160/4.5 MCG 6 GM Inhaler INH SCH ×2 (10:08→22:45)
[2018-10-18] MEDS: Senna/Docusate Sodium 8.6/50 MG Tablet PO SCH ×2 (10:08→20:12)
[2018-10-18] MEDS: Sodium Chloride 0.9% 2 ML Flush BID IV.FLUSH SCH ×2 (10:08→20:12)
--- NOTE | 2018-10-18 10:51 | P.PNID ---
Subjective Remarks: Patient is a 43-year-old female, presented to the hospital for further evaluation of 3-week history of worsening left flank pain and left-sided abdominal pain. Patient stated that back in June she is started having pain in her back and in the left flank area. She went to the emergency room, and was told that she has degenerative disease in the disc and she was discharged. The pain eventually got better but the pain started going down her left lower extremity. She also had noted that her leg was swollen. The swelling gradually improve over time, and she has had problem ambulating. The last 3 weeks the pain in her back came back and this time it was also radiating to the left side of her abdomen. Was progressively worsening. She was having some fevers and chills. She denies any urinary retention or incontinence, and no stool incontinence. Patient has a remote history of IV drug use, but has used cocaine in other ways. She presented back to the hospital, and imaging study is showing a complex fluid collection in the retroperitoneal area. She has had some low-grade fevers. Her WBC is 13,000. Urinalysis okay. Infectious disease consultation has been requested to assist with evaluation and treatment. Patient is currently on n.p.o. There is an IR consult to do a diagnostic tap of the fluid collection, possibly drainage. Notes reviewed Temps ok C/O back pain Had IR aspiration of fluid collection C/S Staph aureus preliminary BC negative No prior Hx discitis Was in care home 2016 - states she had back pain then and was having fevers, did not get any workup; released but never had any medical attention at that time ALLERGY to PCN, but TOLERATES CEPHALOSPORINS Antibiotics: Azactam vancomycin Past Medical History: Endometriosis History of intravenous drug abuse Substance abuse Hepatitis C History of hand surgery Hx of cholecystectomy Allergies/Adverse Reactions: Allergies morphine Allergy (Severe, Verified 10/15/18 08:28) HIVES-SOB penicillin G Allergy (Severe, Verified 10/15/18 08:28) SWELLING Sulfa (Sulfonamide Antibiotics) Allergy (Severe, Verified 10/15/18 08:28) SWELLING gabapentin Allergy (Verified 10/15/18 08:28) Weight Gain Objective Vital Signs 10/17/18 12:00 10/17/18 16:00 10/17/18 17:55 Temperature 98.3 F 98 F Pulse Rate 77 102 H Respiratory Rate 16 20 Blood Pressure 97/70 L 113/77 Pulse Oximetry 97 100 99 10/17/18 20:00 10/18/18 00:00 10/18/18 04:00 Temperature 97.9 F 97.8 F Pulse Rate 78 76 58 L Respiratory Rate 16 17 Blood Pressure 114/68 110/65 Pulse Oximetry 96 95 10/18/18 05:05 10/18/18 08:00 10/18/18 09:09 Temperature 98.0 F 98.3 F Pulse Rate 69 75 Respiratory Rate 17 18 Blood Pressure 120/64 121/78 Pulse Oximetry 97 100 100 Intake & Output 10/17/18 10/18/18 10/18/18 18:59 06:59 18:59 Intake Total 1330 / 1330 2040 / 2040 Output Total 800 / 800 Balance 1330 / 1330 1240 / 1240 Weight 76.9 kg Intake: IV 850 / 850 1800 / 1800 NS Inj 1,000 ML @ 100 mls/hr IV 400 / 400 1000 / 1000 .CONT .Q10H COLLEEN Rx#:[id number] Azactam Inj 1,000 MG In NS Inj 100 / 100 100 / 100 100 ML @ 200 mls/hr IV.SIG Q12H COLLEEN Rx#:[id number] Vancomycin Inj 1,000 MG In NS 250 / 250 500 / 500 Inj 250 ML @ 250 mls/hr IV.SIG Q8H COLLEEN Rx#:[id number] Flagyl 500 MG Inj 100 ML @ 100 100 / 100 200 / 200 mls/hr IV.SIG Q8H COLLEEN Rx#: [id number] Oral 240 / 240 Oral Supplement 480 / 480 Output: Urine 700 / 700 Wound Drainage 100 / 100 Left Lateral Abdomen 100 / 100 Other: # Voids 4 Date of Last Bowel Movement 10/11/18 # Bowel Movements 1 10/16/18 15:40 Fluid - Other Gram Stain - Final 10/16/18 15:40 Fluid - Other Body Fluid Culture - Preliminary Staphylococcus aureus 10/15/18 13:34 Blood - Peripheral Aerobic Blood Culture - Preliminary No growth in 2 days 10/15/18 13:34 Blood - Peripheral Anaerobic Blood Culture - Preliminary No growth in 2 days 10/15/18 13:39 Blood - Peripheral Aerobic Blood Culture - Preliminary No growth in 2 days 10/15/18 13:39 Blood - Peripheral Anaerobic Blood Culture - Preliminary No growth in 2 days Lab - Hematology Results 10/17/18 06:20 WBC 7.3 RBC 2.92 L Hgb 8.4 L Hct 24.5 L MCV 84.1 MCH 28.9 MCHC 34.3 RDW 15.5 Plt Count 438 MPV 7.7 Neut % (Auto) 84.0 H Lymph % (Auto) 9.6 [place] % (Auto) 4.6 Eos % (Auto) 1.4 Baso % (Auto) 0.4 Neut # (Auto) 6.2 Lymph # (Auto) 0.7 L [place] # (Auto) 0.3 Eos # (Auto) 0.1 Baso # (Auto) 0.0 WBC Differential . Differential Comment Auto diff final Lab - Chemistry Results 10/17/18 06:20 Sodium 142 Potassium 3.7 Chloride 107 Carbon Dioxide 26.5 Anion Gap 9 BUN 8 Creatinine 0.51 Estimated GFR Greater than 89 Random Glucose 120 H Calcium 7.8 L Imaging: ITS Impressions Chest X-Ray 10/15/18 08:38 CONCLUSION: Negative examination. Abdomen/Pelvis CT 10/15/18 10:15 CONCLUSION: Complex collection in the left retroperitoneal and flank musculature, felt most likely abscess. Percutaneous drainage under CT guidance does appear feasible Retroperitoneal Abscess Drainage 10/16/18 00:00 CONCLUSION: Uncomplicated CT guided drainage. Physical Exam: GENERAL: awake and alert, not in respiratory distress. SKIN: Cool and dry. No generalized rash HEAD: Atraumatic. Normocephalic. No temporal wasting, or tenderness. EYES: [place] conjunctiva. No petechia or hemorrhage. No scleral icterus. No injection or drainage. EARS, NOSE AND THROAT: Mucous membranes pink and moist. No oral lesions noted. No exudate. No oral thrush. NECK: Trachea midline. Supple and not tender, no meningeal signs CARDIOVASCULAR: Regular rate and rhythm. No murmurs, rubs or gallops heard RESPIRATORY: Clear to auscultation. Breath sounds equal bilaterally. No rales , wheezing or rhonchi ABDOMEN: Soft, nondistended. Has tenderness on L side of abdomen. Bowel sounds present and normoactive. No guarding. No rebound. No organomegaly. EXTREMITIES: No clubbing, cyanosis, or edema. No joint effusion, has good ROM. No calf tenderness. Well perfused and warm. NEUROLOGICAL: PSYCHIATRIC: Normal affect, calm and cooperative. LINE: No evidence of infection Assessment and Plan - Plan Impression L retroperitoneal and flank complex fluid collection ?old Lumbar discitis on CT Admits to remote IVDU, has been using cocaine but not IV Allergy to PCN, has tolerated cephalosporins Recommendation Continue IV Azactam Continue IV Vancomycin MRI Lumbar spine to further evaluate baseline ESR and CRP Echo Follow C/S Follow temps Monitor progress
--- NOTE | 2018-10-18 11:19 | P.PNIM ---
Subjective Interval history: f/u; abdominal abscess in no acute distress. but somewhat uncomfortable with the abdominal pain. drain in place. no fever. Physical Exam Vital signs: Vital Signs 10/17/18 12:00 10/17/18 16:00 10/17/18 17:55 Temperature 98.3 F 98 F Pulse Rate 77 102 H Respiratory Rate 16 20 Blood Pressure 97/70 L 113/77 Pulse Oximetry 97 100 99 10/17/18 20:00 10/18/18 00:00 10/18/18 04:00 Temperature 97.9 F 97.8 F Pulse Rate 78 76 58 L Respiratory Rate 16 17 Blood Pressure 114/68 110/65 Pulse Oximetry 96 95 10/18/18 05:05 10/18/18 08:00 10/18/18 09:09 Temperature 98.0 F 98.3 F Pulse Rate 69 75 Respiratory Rate 17 18 Blood Pressure 120/64 121/78 Pulse Oximetry 97 100 100 Intake & Output 10/17/18 10/18/18 10/18/18 18:59 06:59 18:59 Intake Total 1330 / 1330 2040 / 2040 Output Total 800 / 800 Balance 1330 / 1330 1240 / 1240 Weight 76.9 kg Intake: IV 850 / 850 1800 / 1800 NS Inj 1,000 ML @ 100 mls/hr IV 400 / 400 1000 / 1000 .CONT .Q10H [facility]LE[facility] Rx#:[id number] Azactam Inj 1,000 MG In NS Inj 100 / 100 100 / 100 100 ML @ 200 mls/hr IV.SIG Q12H COLLEEN Rx#:[id number] Vancomycin Inj 1,000 MG In NS 250 / 250 500 / 500 Inj 250 ML @ 250 mls/hr IV.SIG Q8H COLLEEN Rx#:[id number] Flagyl 500 MG Inj 100 ML @ 100 100 / 100 200 / 200 mls/hr IV.SIG Q8H COLLEEN Rx#: [id number] Oral 240 / 240 Oral Supplement 480 / 480 Output: Urine 700 / 700 Wound Drainage 100 / 100 Left Lateral Abdomen 100 / 100 Other: # Voids 4 Date of Last Bowel Movement 10/11/18 # Bowel Movements 1 - Constitutional no acute distress - Routine Respiratory Exam Present: CTA bilaterally - Routine Cardiovascular Exam Present: RRR - Routine Abdominal Exam Present: soft, tenderness (left upper abdomen.) - Routine Extremities Exam Comments: no pedal edema. - Routine Neurological Exam Present: alert, oriented X3 Results - Labs CBC & Chem 7: 10/17/18 06:20 10/17/18 06:20 Laboratory Results - last 24 hr 10/17/18 10:20 Vancomycin Trough 4.5 L Microbiology 10/16/18 15:40 Fluid - Other Gram Stain - Final 10/16/18 15:40 Fluid - Other Body Fluid Culture - Preliminary Staphylococcus aureus 10/15/18 13:34 Blood - Peripheral Aerobic Blood Culture - Preliminary No growth in 3 days 10/15/18 13:34 Blood - Peripheral Anaerobic Blood Culture - Preliminary No growth in 3 days 10/15/18 13:39 Blood - Peripheral Aerobic Blood Culture - Preliminary No growth in 3 days 10/15/18 13:39 Blood - Peripheral Anaerobic Blood Culture - Preliminary No growth in 3 days - Procedures For drainage of lumbar/retroperitoneal abscess Assessment and Plan - Assessment (1) Sepsis Code(s): A41.9 - Sepsis, unspecified organism Status: Acute (2) Retroperitoneal fluid collection Code(s): R18.8 - Other ascites Status: Acute (3) Chest pain Code(s): R07.9 - Chest pain, unspecified Status: Acute - Plan sepsis/ Intraabdominal fluid collection vs. mass - CT A/P noncontrast showing what appears to be possibly a large left retroperitoneal hemorrhage, however, given the interspersed fat along the superior lateral margin of this area there is concern for possible fat- containing mass such as liposarcoma and further evaluation with contrast- enhanced CT or MRI is recommended to exclude an enhancing mass. There is extension of the inflammatory changes identified within the left subcutaneous fatty tissues. This results in mild left-sided hydronephrosis without evidence of distal obstructing stone - CT A/P with contrast showed complex collection in the left retroperitoneal and flank musculature felt to be mostly like an abscess - s/p CT-guided drainage - fluid culture with staph aureus. - Continue broad-spectrum IV antibiotics to cover intraabdominal source (since allergic to PCN will treat with vancomycin, Aztreonam). - ID consult appreciated; MRI lumbar spine and echo ordered. - Antiemetics - IV fluids - Pain control (Toradol with Dilaudid for breakthrough) counseled regarding narcotics. Heating pads per 3. Chest pain - Possibly secondary to above vs. anxiety but other differentials to consider include ACS, costochondritis, PE, PNA - Lungs are clear with no infiltrates or effusion - Ruled out for [place] - Ativan PRN anxiety 4. Normocytic anemia. No gross bleeding - Slightly worse secondary to dilution. Hemodynamically stable per - Comparison of labs from prior visits in 2017 show this is new - She endorses some occasional BRBPR which she attributes to hemorrhoids - Anemia likely secondary to intraabdominal process with some associated (but not active) hemorrhage - Continue to monitor 5. Polysubstance abuse - Patient admits to taking some nonprescribed methadone but denies any other drug use aside from her Lortab that's prescribed - UDS + for cocaine 6. Thrombocytosis - likely reactive from infection - Continue to monitor 7. Hepatitis C, treatment naive - LFTs WNL - Avoid hepatotoxic agents DVT prophylaxis: SCDs Code Status: FULL Discharge Planning: still has abdominal drain and on IV antibiotics; w/u in progress. not ready for discharge.
[2018-10-18] MEDS ORDERED: Pharmacy Ordered Lab Info OTHER ONE (11:45)
[2018-10-18] MEDS ORDERED: Gadobutrol PF 10 MMOL/10 ML Vial (for RAD) IV.SIG ONE (13:25)
--- NOTE | 2018-10-18 13:43 | MR ---
EXAM DATE: 10/18/2018 1:34 PM EST AGE/SEX: 43 years / Female INDICATIONS: Abscess. Low back pain. CLINICAL DATA: This is the patient's initial encounter. Patient reports that signs and symptoms have been present for 2 days and indicates a pain score of 8/10. MEDICAL/SURGICAL HISTORY: Renal calculi. Cholecystectomy. Right hand sx. COMPARISON: No prior exams available for comparison. TECHNIQUE: Multiplanar, multisequence MRI examination of the lumbar spine was performed without and with 8 ml Gadavist (gadobutrol) contrast as a single exam dose. FINDINGS: The most caudal-appearing lumbar vertebra is numbered as L5. Vertebra: Homogeneous signal. Normal alignment. Conus: Normal level and configuration. Post Contrast: No abnormal areas of contrast enhancement are seen. Abnormal signal involving the left iliopsoas muscle consistent with the history of abscess. There is mixed signal but predominantly fluid signal. It is only partially visualized. This abnormal signal ex tends medially and inferiorly to the level of the left L5 neural foramen. The signal that extends deena n to the neural foramen is more consistent with phlegmon with lack of liquefaction. No paraspinal abs cess observed. T12-L1: The thecal sac has a normal diameter. No evidence of disc bulge or protrusion. The neural foramina are patent bilaterally. L1-L2: The thecal sac has a normal diameter. No evidence of disc bulge or protrusion. The neural foramina are patent bilaterally. L2-L3: The thecal sac has a normal diameter. No evidence of disc bulge or protrusion. The neural foramina are patent bilaterally. L3-L4: The thecal sac has a normal diameter. No evidence of disc bulge or protrusion. The neural foramina are patent bilaterally. L4-L5: Considerable disc space narrowing without bulge or protrusion. Neural foramina and central c anal are patent.. L5-S1: The thecal sac has a normal diameter. No evidence of disc bulge or protrusion. The neural foramina are patent bilaterally. CONCLUSION: 1. Left iliopsoas abscess partially visualized. Prior imaging shows this in better detail. 2. Abnormal signal extending from the left iliopsoas abscess towards and into the left L5 neural for amen consistent with phlegmon but no liquefaction to an abscess at this point. This may generate a le ft L5 radiculopathy. Electronically signed by: Jadon Burgess MD 10/18/2018 1:42 PM EST
--- NOTE | 2018-10-18 17:49 | ECHRPT ---
Indication: POSS SEPSIS, ENDOCARDITIS CONCLUSIONS Normal left ventricular size. Mild concentric left ventricular hypertrophy. The left ventricular systolic function is normal with an estimated ejection fraction in the range of 55-60%. Trace mitral valve regurgitation. There is trace tricuspid valve regurgitation. BP: / HR: Rhythm: Sinus MEASUREMENTS (Male / Female) Normal Values Technical Quality:Fair 2D ECHO LV Diastolic Diameter PLAX 4.2 cm 4.2 - 5.9 / 3.9 - 5.3 cm LV Systolic Diameter PLAX 3.2 cm IVS Diastolic Thickness 1.1 cm 0.6 - 1.0 / 0.6 - 0.9 cm LVPW Diastolic Thickness 1.1 cm 0.6 - 1.0 / 0.6 - 0.9 cm LV Relative Wall Thickness 0.5 RV Internal Dim ED PLAX 3.4 cm LVOT Diameter 2.0 cm Aortic Root Diameter 2.8 cm LA Systolic Diameter LX 3.7 cm 3.0 - 4.0 / 2.7 - 3.8 cm M-MODE AV Cusp Separation MM 2.1 cm DOPPLER AV Peak Velocity 159.0 cm/s AV Peak Gradient 10.1 mmHg AV Mean Gradient 5.0 mmHg AV Velocity Time Integral 30.7 cm LVOT Peak Velocity 86.5 cm/s LVOT Peak Gradient 3.0 mmHg LVOT Velocity Time Integral 17.3 cm AV Area Cont Eq vti 1.8 cm AV Area Cont Eq pk 1.7 cm Mitral E Point Velocity 114.0 cm/s Mitral A Point Velocity 63.7 cm/s Mitral E to A Ratio 1.8 LV E' Lateral Velocity 15.1 cm/s Mitral E to LV E' Lateral Ratio 7.5 LV E' Septal Velocity 9.8 cm/s Mitral E to LV E' Septal Ratio 11.6 TR Peak Velocity 174.0 cm/s TR Peak Gradient 12.1 mmHg PV Peak Velocity 78.2 cm/s PV Peak Gradient 2.4 mmHg FINDINGS LEFT VENTRICLE Normal left ventricular size. Mild concentric left ventricular hypertrophy. The left ventricular systolic function is normal with an estimated ejection fraction in the range of 55-60%. RIGHT VENTRICLE Normal right ventricular size and systolic function. LEFT ATRIUM The left atrial size is normal. RIGHT ATRIUM The right atrial size is normal. ATRIAL SEPTUM No atrial level shunt is demonstrated by color flow Doppler interrogation. AORTA The aortic root and proximal ascending aorta are normal in size on limited imaging. MITRAL VALVE Trace mitral valve regurgitation. AORTIC VALVE Trileaflet aortic valve. No aortic valve stenosis or regurgitation. TRICUSPID VALVE There is trace tricuspid valve regurgitation. PULMONARY VALVE No pulmonary valve regurgitation or stenosis. VESSELS The inferior vena cava is normal in size. PERICARDIUM No pericardial effusion. David Ag MD, FACC, [facility] [place] (Electronically Signed) Final Date:18 October 2018 17:47
[2018-10-18] MEDS: Temazepam 15 MG Capsule PO PRN (21:13)
[2018-10-19] MEDS: HYDROmorphone PF Inj 2 MG/ML Vial IV.PUSH PRN ×5 (02:43→20:38)
[2018-10-19] MEDS: Vancomycin Inj 1,000 MG in Sodium Chlor 0.9% Inj 250 ML IV.SIG SCH (04:50)
[2018-10-19] MEDS: Sod Chloride 0.9% Inj 1,000 ML IV.CONT SCH ×4 (05:47→21:53)
[2018-10-19 06:43] LABS: Glomerular Filtration Rate Greater Than 89 mL/min (>89)
[2018-10-19] MEDS: Senna/Docusate Sodium 8.6/50 MG Tablet PO SCH ×2 (09:15→20:20)
[2018-10-19] MEDS: Sodium Chloride 0.9% 2 ML Flush BID IV.FLUSH SCH ×2 (09:15→21:42)
[2018-10-19] MEDS: Budesonide-Formoterol 160/4.5 MCG 6 GM Inhaler INH SCH ×2 (09:17→20:21)
--- NOTE | 2018-10-19 11:20 | P.PNID ---
Subjective Remarks: Patient is a 43-year-old female, presented to the hospital for further evaluation of 3-week history of worsening left flank pain and left-sided abdominal pain. Patient stated that back in June she is started having pain in her back and in the left flank area. She went to the emergency room, and was told that she has degenerative disease in the disc and she was discharged. The pain eventually got better but the pain started going down her left lower extremity. She also had noted that her leg was swollen. The swelling gradually improve over time, and she has had problem ambulating. The last 3 weeks the pain in her back came back and this time it was also radiating to the left side of her abdomen. Was progressively worsening. She was having some fevers and chills. She denies any urinary retention or incontinence, and no stool incontinence. Patient has a remote history of IV drug use, but has used cocaine in other ways. She presented back to the hospital, and imaging study is showing a complex fluid collection in the retroperitoneal area. She has had some low-grade fevers. Her WBC is 13,000. Urinalysis okay. Infectious disease consultation has been requested to assist with evaluation and treatment. Patient is currently on n.p.o. There is an IR consult to do a diagnostic tap of the fluid collection, possibly drainage. Notes reviewed Temps ok C/O back pain Had IR aspiration of fluid collection C/S MSSA Lumbar spine MRI, no discitis BC negative No prior Hx discitis Was in [facility] 2016 - states she had back pain then and was having fevers, did not get any workup; released but never had any medical attention at that time ESR 87 CRP 7.37 ALLERGY to PCN, but TOLERATES CEPHALOSPORINS Antibiotics: Azactam vancomycin Past Medical History: Endometriosis History of intravenous drug abuse Substance abuse Hepatitis C History of hand surgery Hx of cholecystectomy Allergies/Adverse Reactions: Allergies morphine Allergy (Severe, Verified 10/15/18 08:28) HIVES-SOB penicillin G Allergy (Severe, Verified 10/15/18 08:28) SWELLING Sulfa (Sulfonamide Antibiotics) Allergy (Severe, Verified 10/15/18 08:28) SWELLING gabapentin Allergy (Verified 10/15/18 08:28) Weight Gain Objective Vital Signs 10/18/18 12:00 10/18/18 16:00 10/18/18 17:19 Temperature 98.2 F 98.2 F Pulse Rate 64 66 Respiratory Rate 18 18 Blood Pressure 110/69 116/68 Pulse Oximetry 95 96 95 10/18/18 20:00 10/19/18 00:00 10/19/18 01:47 Temperature 97.9 F 97.5 F L Pulse Rate 64 53 L 62 Respiratory Rate 18 20 Blood Pressure 111/71 127/64 Pulse Oximetry 97 98 10/19/18 04:00 10/19/18 06:45 10/19/18 08:00 Temperature 97.4 F L 97.9 F Pulse Rate 56 L 56 L 88 Respiratory Rate 18 18 Blood Pressure 124/74 169/80 H Pulse Oximetry 97 99 10/19/18 10:48 Temperature Pulse Rate Respiratory Rate Blood Pressure Pulse Oximetry 97 Intake & Output 10/18/18 10/19/18 10/19/18 18:59 06:59 18:59 Intake Total 1520 / 1520 1080 / 1080 1100 / 1100 Output Total 230 / 230 600 / 600 Balance 1290 / 1290 480 / 480 1100 / 1100 Weight 76.9 kg Intake: IV 1100 / 1100 600 / 600 1100 / 1100 NS Inj 1,000 ML @ 100 mls/hr IV 1000 / 1000 1000 / 1000 .CONT .Q10H [facility]LEEN Rx#:[id number] Azactam Inj 1,000 MG In NS Inj 100 / 100 100 / 100 100 / 100 100 ML @ 200 mls/hr IV.SIG Q12H COLLEEN Rx#:[id number] Vancomycin Inj 1,000 MG In NS 500 / 500 Inj 250 ML @ 250 mls/hr IV.SIG Q8H COLLEEN Rx#:[id number] Oral 420 / 420 480 / 480 Output: Urine 600 / 600 Wound Drainage 230 / 230 Left Lateral Abdomen 230 / 230 Other: # Voids 5 Date of Last Bowel Movement 10/11/18 # Bowel Movements 2 10/15/18 13:34 Blood - Peripheral Aerobic Blood Culture - Preliminary No growth in 4 days 10/15/18 13:34 Blood - Peripheral Anaerobic Blood Culture - Preliminary No growth in 4 days 10/15/18 13:39 Blood - Peripheral Aerobic Blood Culture - Preliminary No growth in 4 days 10/15/18 13:39 Blood - Peripheral Anaerobic Blood Culture - Preliminary No growth in 4 days 10/16/18 15:40 Fluid - Other Gram Stain - Final 10/16/18 15:40 Fluid - Other Body Fluid Culture - Final Staphylococcus aureus Lab - Hematology Results 10/18/18 12:32 ESR 87 H Lab - Chemistry Results 10/18/18 10/19/18 12:32 05:38 Creatinine 0.50 Estimated GFR Greater than 89 C-Reactive Protein 7.37 H Imaging: ITS Impressions Chest X-Ray 10/15/18 08:38 CONCLUSION: Negative examination. Abdomen/Pelvis CT 10/15/18 10:15 CONCLUSION: Complex collection in the left retroperitoneal and flank musculature, felt most likely abscess. Percutaneous drainage under CT guidance does appear feasible Retroperitoneal Abscess Drainage 10/16/18 00:00 CONCLUSION: Uncomplicated CT guided drainage. Lumbar Spine MRI 10/18/18 00:00 CONCLUSION: 1. Left iliopsoas abscess partially visualized. Prior imaging shows this in better detail. 2. Abnormal signal extending from the left iliopsoas abscess towards and into the left L5 neural foramen consistent with phlegmon but no liquefaction to an abscess at this point. This may generate a left L5 radiculopathy. Physical Exam: GENERAL: awake and alert, not in respiratory distress. SKIN: Cool and dry. No generalized rash HEAD: Atraumatic. Normocephalic. No temporal wasting, or tenderness. EYES: [place] conjunctiva. No petechia or hemorrhage. No scleral icterus. No injection or drainage. EARS, NOSE AND THROAT: Mucous membranes pink and moist. No oral lesions noted. No exudate. No oral thrush. NECK: Trachea midline. Supple and not tender, no meningeal signs CARDIOVASCULAR: Regular rate and rhythm. No murmurs, rubs or gallops heard RESPIRATORY: Clear to auscultation. Breath sounds equal bilaterally. No rales , wheezing or rhonchi ABDOMEN: Soft, nondistended. Has tenderness on L side of abdomen. Bowel sounds present and normoactive. No guarding. No rebound. No organomegaly. EXTREMITIES: No clubbing, cyanosis, or edema. No joint effusion, has good ROM. No calf tenderness. Well perfused and warm. NEUROLOGICAL: PSYCHIATRIC: Normal affect, calm and cooperative. LINE: No evidence of infection Assessment and Plan - Plan Impression L retroperitoneal and flank complex fluid collection ?old Lumbar discitis on CT Admits to remote IVDU, has been using cocaine but not IV Allergy to PCN, has tolerated cephalosporins Recommendation Change Abx to Ancef Await echo Follow C/S Follow temps Monitor progress
--- NOTE | 2018-10-19 11:40 | P.PNIM ---
Subjective Interval history: f/u; left flank fluid collection in no acute distress. pain is better and looks more comfortable today. no fever. drain is in place. Physical Exam Vital signs: Vital Signs 10/18/18 12:00 10/18/18 16:00 10/18/18 17:19 Temperature 98.2 F 98.2 F Pulse Rate 64 66 Respiratory Rate 18 18 Blood Pressure 110/69 116/68 Pulse Oximetry 95 96 95 10/18/18 20:00 10/19/18 00:00 10/19/18 01:47 Temperature 97.9 F 97.5 F L Pulse Rate 64 53 L 62 Respiratory Rate 18 20 Blood Pressure 111/71 127/64 Pulse Oximetry 97 98 10/19/18 04:00 10/19/18 06:45 10/19/18 08:00 Temperature 97.4 F L 97.9 F Pulse Rate 56 L 56 L 88 Respiratory Rate 18 18 Blood Pressure 124/74 169/80 H Pulse Oximetry 97 99 10/19/18 10:48 Temperature Pulse Rate Respiratory Rate Blood Pressure Pulse Oximetry 97 Intake & Output 10/18/18 10/19/18 10/19/18 18:59 06:59 18:59 Intake Total 1520 / 1520 1080 / 1080 1100 / 1100 Output Total 230 / 230 600 / 600 Balance 1290 / 1290 480 / 480 1100 / 1100 Weight 76.9 kg Intake: IV 1100 / 1100 600 / 600 1100 / 1100 NS Inj 1,000 ML @ 100 mls/hr IV 1000 / 1000 1000 / 1000 .CONT .Q10H COLLEEN Rx#:[id number] Azactam Inj 1,000 MG In NS Inj 100 / 100 100 / 100 100 / 100 100 ML @ 200 mls/hr IV.SIG Q12H COLLEEN Rx#:[id number] Vancomycin Inj 1,000 MG In NS 500 / 500 Inj 250 ML @ 250 mls/hr IV.SIG Q8H COLLEEN Rx#:[id number] Oral 420 / 420 480 / 480 Output: Urine 600 / 600 Wound Drainage 230 / 230 Left Lateral Abdomen 230 / 230 Other: # Voids 5 Date of Last Bowel Movement 10/11/18 # Bowel Movements 2 - Constitutional no acute distress - Routine Respiratory Exam Present: CTA bilaterally - Routine Cardiovascular Exam Present: RRR - Routine Abdominal Exam Present: soft (drain in place- left abdomen.) - Routine Extremities Exam Comments: no pedal edema. - Routine Neurological Exam Present: alert, oriented X3 Results - Labs CBC & Chem 7: 10/17/18 06:20 10/19/18 05:38 Laboratory Results - last 24 hr 10/18/18 10/18/18 10/18/18 12:32 12:32 16:42 ESR 87 H Creatinine Estimated GFR C-Reactive Protein 7.37 H Vancomycin Trough 6.9 10/19/18 05:38 ESR Creatinine 0.50 Estimated GFR Greater than 89 C-Reactive Protein Vancomycin Trough Microbiology 10/15/18 13:34 Blood - Peripheral Aerobic Blood Culture - Preliminary No growth in 4 days 10/15/18 13:34 Blood - Peripheral Anaerobic Blood Culture - Preliminary No growth in 4 days 10/15/18 13:39 Blood - Peripheral Aerobic Blood Culture - Preliminary No growth in 4 days 10/15/18 13:39 Blood - Peripheral Anaerobic Blood Culture - Preliminary No growth in 4 days 10/16/18 15:40 Fluid - Other Gram Stain - Final 10/16/18 15:40 Fluid - Other Body Fluid Culture - Final Staphylococcus aureus - Imaging Impressions Lumbar Spine MRI 10/18/18 00:00 CONCLUSION: 1. Left iliopsoas abscess partially visualized. Prior imaging shows this in better detail. 2. Abnormal signal extending from the left iliopsoas abscess towards and into the left L5 neural foramen consistent with phlegmon but no liquefaction to an abscess at this point. This may generate a left L5 radiculopathy. - Procedures For drainage of lumbar/retroperitoneal abscess Assessment and Plan - Assessment (1) Sepsis Code(s): A41.9 - Sepsis, unspecified organism Status: Acute (2) Retroperitoneal fluid collection Code(s): R18.8 - Other ascites Status: Acute (3) Chest pain Code(s): R07.9 - Chest pain, unspecified Status: Acute - Plan sepsis/ Intraabdominal fluid collection vs. mass - CT A/P noncontrast showing what appears to be possibly a large left retroperitoneal hemorrhage, however, given the interspersed fat along the superior lateral margin of this area there is concern for possible fat- containing mass such as liposarcoma and further evaluation with contrast- enhanced CT or MRI is recommended to exclude an enhancing mass. There is extension of the inflammatory changes identified within the left subcutaneous fatty tissues. This results in mild left-sided hydronephrosis without evidence of distal obstructing stone - CT A/P with contrast showed complex collection in the left retroperitoneal and flank musculature felt to be mostly like an abscess - s/p CT-guided drainage - fluid culture with MSSA. -started on Ancef -ID following. - Pain control (Toradol with Dilaudid for breakthrough) counseled regarding narcotics. Heating pads per 3. Chest pain - Possibly secondary to above vs. anxiety but other differentials to consider include ACS, costochondritis, PE, PNA - Lungs are clear with no infiltrates or effusion - Ruled out for [place] - Ativan PRN anxiety 4. Normocytic anemia. No gross bleeding - Slightly worse secondary to dilution. Hemodynamically stable per - Comparison of labs from prior visits in 2017 show this is new - She endorses some occasional BRBPR which she attributes to hemorrhoids - Anemia likely secondary to intraabdominal process with some associated (but not active) hemorrhage - Continue to monitor 5. Polysubstance abuse - Patient admits to taking some nonprescribed methadone but denies any other drug use aside from her Lortab that's prescribed - UDS + for cocaine 6. Thrombocytosis - likely reactive from infection - Continue to monitor 7. Hepatitis C, treatment naive - LFTs WNL - Avoid hepatotoxic agents DVT prophylaxis: SCDs Code Status: FULL Discharge Planning: still has abdominal drain and on IV antibiotics; w/u in progress. not ready for discharge.
[2018-10-19] MEDS ORDERED: Pharmacy Ordered Lab Info OTHER ONE (11:45)
[2018-10-19] MEDS: ceFAZolin 2 GM Premix Inj 2 GM/50 ML PIGGYBACK IV.SIG SCH ×2 (14:04→20:20)
[2018-10-20] MEDS: HYDROmorphone PF Inj 2 MG/ML Vial IV.PUSH PRN ×6 (00:37→22:46)
[2018-10-20] MEDS: Sod Chloride 0.9% Inj 1,000 ML IV.CONT SCH ×3 (02:00→12:21)
[2018-10-20] MEDS: ceFAZolin 2 GM Premix Inj 2 GM/50 ML PIGGYBACK IV.SIG SCH ×3 (04:30→20:46)
--- NOTE | 2018-10-20 08:44 | P.PNIM ---
Subjective Interval history: f/u;L retroperitoneal and flank complex fluid collection in no acute distress. drain in place. pain is fairly controlled. no fever. no new complaints. Physical Exam Vital signs: Vital Signs 10/19/18 10:48 10/19/18 12:00 10/19/18 16:00 Temperature 98.1 F 98.3 F Pulse Rate 56 L 79 Respiratory Rate 18 18 Blood Pressure 128/77 147/78 H Pulse Oximetry 97 98 98 10/19/18 20:00 10/20/18 00:00 10/20/18 04:00 Temperature 97.1 F L 97.8 F 97.8 F Pulse Rate 66 65 46 L Respiratory Rate 20 18 18 Blood Pressure 140/66 123/66 130/69 Pulse Oximetry 99 96 95 Intake & Output 10/19/18 10/20/18 10/20/18 18:59 06:59 18:59 Intake Total 1710 / 1710 2570 / 2570 Output Total 3221 / 3221 1030 / 1030 Balance -1511 / -1511 1540 / 1540 Weight 81 kg Intake: IV 1150 / 1150 1850 / 1850 NS Inj 1,000 ML @ 100 mls/hr IV 1000 / 1000 1750 / 1750 .CONT .Q10H [facility] Rx#:[id number] Azactam Inj 1,000 MG In NS Inj 100 / 100 100 ML @ 200 mls/hr IV.SIG Q12H [facility]LEEN Rx#:[id number] Ancef 2 GM Premix Inj 2 gm In 50 / 50 100 / 100 50 ml @ 100 mls/hr IV.SIG Q8H [facility]LE[facility] Rx#:[id number] Oral 560 / 560 720 / 720 Output: Urine 3200 / 3200 1000 / 1000 Wound Drainage 30 / 30 Left Lateral Abdomen Other: # Bowel Movements 0 - Constitutional no acute distress - Routine Respiratory Exam Present: CTA bilaterally - Routine Cardiovascular Exam Present: RRR - Routine Abdominal Exam Present: soft (drain in place- left flank.) - Routine Extremities Exam Comments: no pedal edema. - Routine Neurological Exam Present: alert, oriented X3 Results - Labs CBC & Chem 7: 10/17/18 06:20 10/19/18 05:38 Microbiology 10/15/18 13:34 Blood - Peripheral Aerobic Blood Culture - Preliminary No growth in 4 days 10/15/18 13:34 Blood - Peripheral Anaerobic Blood Culture - Preliminary No growth in 4 days 10/15/18 13:39 Blood - Peripheral Aerobic Blood Culture - Preliminary No growth in 4 days 10/15/18 13:39 Blood - Peripheral Anaerobic Blood Culture - Preliminary No growth in 4 days - Procedures For drainage of lumbar/retroperitoneal abscess Assessment and Plan - Assessment (1) Sepsis Code(s): A41.9 - Sepsis, unspecified organism Status: Acute (2) Retroperitoneal fluid collection Code(s): R18.8 - Other ascites Status: Acute (3) Chest pain Code(s): R07.9 - Chest pain, unspecified Status: Acute - Plan sepsis/ L retroperitoneal and flank complex fluid collection - CT A/P noncontrast showing what appears to be possibly a large left retroperitoneal hemorrhage, however, given the interspersed fat along the superior lateral margin of this area there is concern for possible fat- containing mass such as liposarcoma and further evaluation with contrast- enhanced CT or MRI is recommended to exclude an enhancing mass. There is extension of the inflammatory changes identified within the left subcutaneous fatty tissues. This results in mild left-sided hydronephrosis without evidence of distal obstructing stone - CT A/P with contrast showed complex collection in the left retroperitoneal and flank musculature felt to be mostly like an abscess - s/p CT-guided drainage - fluid culture with MSSA. -started on Ancef -ID following. - Pain control (Toradol with Dilaudid for breakthrough) counseled regarding narcotics. Heating pads per 3. Chest pain - Possibly secondary to above vs. anxiety but other differentials to consider include ACS, costochondritis, PE, PNA - Lungs are clear with no infiltrates or effusion - Ruled out for AL - Ativan PRN anxiety 4. Normocytic anemia. No gross bleeding - Slightly worse secondary to dilution. Hemodynamically stable per - Comparison of labs from prior visits in 2017 show this is new - She endorses some occasional BRBPR which she attributes to hemorrhoids - Anemia likely secondary to intraabdominal process with some associated (but not active) hemorrhage - Continue to monitor 5. Polysubstance abuse - Patient admits to taking some nonprescribed methadone but denies any other drug use aside from her Lortab that's prescribed - UDS + for cocaine 6. Thrombocytosis - likely reactive from infection - Continue to monitor 7. Hepatitis C, treatment naive - LFTs WNL - Avoid hepatotoxic agents DVT prophylaxis: SCDs Code Status: FULL Discharge Planning: still has abdominal drain and on IV antibiotics; w/u in progress. not ready for discharge.
[2018-10-20] MEDS: Budesonide-Formoterol 160/4.5 MCG 6 GM Inhaler INH SCH ×2 (09:41→20:47)
[2018-10-20] MEDS: Senna/Docusate Sodium 8.6/50 MG Tablet PO SCH ×2 (09:41→20:46)
[2018-10-20] MEDS: Sodium Chloride 0.9% 2 ML Flush BID IV.FLUSH SCH ×2 (09:41→20:47)
--- NOTE | 2018-10-20 12:06 | P.PNID ---
Subjective Remarks: Patient is a 43-year-old female, presented to the hospital for further evaluation of 3-week history of worsening left flank pain and left-sided abdominal pain. Patient stated that back in June she is started having pain in her back and in the left flank area. She went to the emergency room, and was told that she has degenerative disease in the disc and she was discharged. The pain eventually got better but the pain started going down her left lower extremity. She also had noted that her leg was swollen. The swelling gradually improve over time, and she has had problem ambulating. The last 3 weeks the pain in her back came back and this time it was also radiating to the left side of her abdomen. Was progressively worsening. She was having some fevers and chills. She denies any urinary retention or incontinence, and no stool incontinence. Patient has a remote history of IV drug use, but has used cocaine in other ways. She presented back to the hospital, and imaging study is showing a complex fluid collection in the retroperitoneal area. She has had some low-grade fevers. Her WBC is 13,000. Urinalysis okay. Infectious disease consultation has been requested to assist with evaluation and treatment. Patient is currently on n.p.o. There is an IR consult to do a diagnostic tap of the fluid collection, possibly drainage. Notes reviewed Temps ok Had IR aspiration of fluid collection - C/S MSSA Drain in place Lumbar spine MRI, no discitis BC negative ESR 87 CRP 7.37 ALLERGY to PCN, but TOLERATES CEPHALOSPORINS Antibiotics: Ancef Past Medical History: Endometriosis History of intravenous drug abuse Substance abuse Hepatitis C History of hand surgery Hx of cholecystectomy Allergies/Adverse Reactions: Allergies morphine Allergy (Severe, Verified 10/15/18 08:28) HIVES-SOB penicillin G Allergy (Severe, Verified 10/15/18 08:28) SWELLING Sulfa (Sulfonamide Antibiotics) Allergy (Severe, Verified 10/15/18 08:28) SWELLING gabapentin Allergy (Verified 10/15/18 08:28) Weight Gain Objective Vital Signs 10/19/18 16:00 10/19/18 20:00 10/20/18 00:00 Temperature 98.3 F 97.1 F L 97.8 F Pulse Rate 79 66 65 Respiratory Rate 18 20 18 Blood Pressure 147/78 H 140/66 123/66 Pulse Oximetry 98 99 96 10/20/18 04:00 10/20/18 08:00 10/20/18 09:48 Temperature 97.8 F 98.1 F Pulse Rate 46 L 56 L Respiratory Rate 18 Blood Pressure 130/69 140/78 Pulse Oximetry 95 99 Intake & Output 10/19/18 10/20/18 10/20/18 18:59 06:59 18:59 Intake Total 1710 / 1710 2570 / 2570 1000 / 1000 Output Total 3221 / 3221 1030 / 1030 Balance -1511 / -1511 1540 / 1540 1000 / 1000 Weight 81 kg Intake: IV 1150 / 1150 1850 / 1850 1000 / 1000 NS Inj 1,000 ML @ 60 mls/hr IV. 1000 / 1000 1750 / 1750 1000 / 1000 CONT .[id number] [facility] Rx#:[id number] Azactam Inj 1,000 MG In NS Inj 100 / 100 100 ML @ 200 mls/hr IV.SIG Q12H [facility]LE[facility] Rx#:[id number] Ancef 2 GM Premix Inj 2 gm In 50 / 50 100 / 100 50 ml @ 100 mls/hr IV.SIG Q8H [facility]LE[facility] Rx#:[id number] Oral 560 / 560 720 / 720 Output: Urine 3200 / 3200 1000 / 1000 Wound Drainage Left Lateral Abdomen Other: # Bowel Movements 0 10/15/18 13:34 Blood - Peripheral Aerobic Blood Culture - Final No growth in 5 days 10/15/18 13:34 Blood - Peripheral Anaerobic Blood Culture - Final No growth in 5 days 10/15/18 13:39 Blood - Peripheral Aerobic Blood Culture - Final No growth in 5 days 10/15/18 13:39 Blood - Peripheral Anaerobic Blood Culture - Final No growth in 5 days 10/16/18 15:40 Fluid - Other Gram Stain - Final 10/16/18 15:40 Fluid - Other Body Fluid Culture - Final Staphylococcus aureus Lab - Hematology Results 10/18/18 12:32 ESR 87 H Lab - Chemistry Results 10/18/18 10/19/18 12:32 05:38 Creatinine 0.50 Estimated GFR Greater than 89 C-Reactive Protein 7.37 H Imaging: ITS Impressions Chest X-Ray 10/15/18 08:38 CONCLUSION: Negative examination. Abdomen/Pelvis CT 11/18/18 10:15 CONCLUSION: Complex collection in the left retroperitoneal and flank musculature, felt most likely abscess. Percutaneous drainage under CT guidance does appear feasible Retroperitoneal Abscess Drainage 10/16/18 00:00 CONCLUSION: Uncomplicated CT guided drainage. Lumbar Spine MRI 10/18/18 00:00 CONCLUSION: 1. Left iliopsoas abscess partially visualized. Prior imaging shows this in better detail. 2. Abnormal signal extending from the left iliopsoas abscess towards and into the left L5 neural foramen consistent with phlegmon but no liquefaction to an abscess at this point. This may generate a left L5 radiculopathy. Physical Exam: GENERAL: awake and alert, not in respiratory distress. SKIN: Cool and dry. No generalized rash HEAD: Atraumatic. Normocephalic. No temporal wasting, or tenderness. EYES: Gilmer conjunctiva. No petechia or hemorrhage. No scleral icterus. No injection or drainage. EARS, NOSE AND THROAT: Mucous membranes pink and moist. No oral lesions noted. No exudate. No oral thrush. NECK: Trachea midline. Supple and not tender, no meningeal signs CARDIOVASCULAR: Regular rate and rhythm. No murmurs, rubs or gallops heard RESPIRATORY: Clear to auscultation. Breath sounds equal bilaterally. No rales , wheezing or rhonchi ABDOMEN: Soft, nondistended. Has tenderness on L side of abdomen. Bowel sounds present and normoactive. Drain in place. EXTREMITIES: No clubbing, cyanosis, or edema. No joint effusion, has good ROM. No calf tenderness. Well perfused and warm. NEUROLOGICAL: non-focal PSYCHIATRIC: Normal affect, calm and cooperative. LINE: No evidence of infection Assessment and Plan - Plan Impression L retroperitoneal and flank complex fluid collection ?old Lumbar discitis on CT Admits to remote IVDU, has been using cocaine but not IV Allergy to PCN, has tolerated cephalosporins Recommendation Continue Ancef Await echo Follow C/S Likely repeat scan next week once drain decreased Follow temps Monitor progress
[2018-10-20] MEDS: Temazepam 15 MG Capsule PO PRN (22:46)
[2018-10-21] MEDS: HYDROmorphone PF Inj 2 MG/ML Vial IV.PUSH PRN ×5 (02:40→23:31)
[2018-10-21] MEDS: ceFAZolin 2 GM Premix Inj 2 GM/50 ML PIGGYBACK IV.SIG SCH ×3 (04:35→21:21)
[2018-10-21] MEDS: Sod Chloride 0.9% Inj 1,000 ML IV.CONT SCH ×2 (04:37→22:40)
[2018-10-21 06:20] LABS: Baso # (Auto) 0.1 th/mm3 (0.0-0.2); Eos # (Auto) 0.1 th/mm3 (0.0-0.4); Eos % (Auto) 2.6 % (0.0-4.0); Hemoglobin 8.8 gm/dL (11.6-15.3); Lymph # (Auto) 1.6 th/mm3 (1.0-4.8); Lymph % (Auto) 32.3 % (9.0-44.0); Mean Corpuscular HGB Conc 32.8 % (32.0-36.0); Mean Corpuscular Hemoglobin 28.1 pg (27.0-34.0); Mean Corpuscular Volume 85.8 fL (80.0-100.0); Mean Platelet Volume 7.9 fL (7.0-11.0); Mono # (Auto) 0.2 th/mm3 (0.0-0.9); Mono % (Auto) 3.9 % (0.0-8.0); Neut % (Auto) 60.2 % (16.0-70.0); Platelet Count 463 th/mm3 (150-450); Red Blood Count 3.14 mil/mm3 (4.00-5.30); Red Cell Distribution Width 16.1 % (11.6-17.2)
[2018-10-21 06:31] LABS: Anion Gap 6 meq/L (5-15); Blood Urea Nitrogen 5 mg/dL (7-18); Calcium 8.6 mg/dL (8.5-10.1); Carbon Dioxide 27.8 meq/L (21.0-32.0); Chloride 107 meq/L (98-107); Glomerular Filtration Rate Greater Than 89 mL/min (>89); Glucose,Random 82 mg/dL (74-106); Potassium 4.1 meq/L (3.5-5.1); Sodium 141 meq/L (136-145)
[2018-10-21] MEDS: Senna/Docusate Sodium 8.6/50 MG Tablet PO SCH ×2 (10:05→21:22)
[2018-10-21] MEDS: Sodium Chloride 0.9% 2 ML Flush BID IV.FLUSH SCH ×2 (10:06→21:22)
[2018-10-21] MEDS: Budesonide-Formoterol 160/4.5 MCG 6 GM Inhaler INH SCH ×2 (10:06→21:30)
--- NOTE | 2018-10-21 11:23 | P.PN ---
Subjective Interval history: Follow-up for left pelvis iliopsoas abscess, substance abuse. Patient is currently resting in bed. Denies any chest pain, shortness of breath, fever or chills. She has persistent low back pain. Physical Exam Vital signs: Vital Signs 10/20/18 12:00 10/20/18 12:23 10/20/18 14:14 Temperature 99.3 F Pulse Rate 71 Respiratory Rate 20 18 18 Blood Pressure 146/89 H Pulse Oximetry 99 10/20/18 16:00 10/20/18 16:39 10/20/18 20:00 Temperature 98.7 F 97.8 F Pulse Rate 65 55 L Respiratory Rate 20 18 16 Blood Pressure 136/86 133/64 Pulse Oximetry 98 97 10/21/18 00:00 10/21/18 02:49 10/21/18 04:00 Temperature 97.6 F Pulse Rate 60 58 L 55 L Respiratory Rate 20 Blood Pressure 128/69 Pulse Oximetry 94 L 10/21/18 07:46 Temperature 97.5 F L Pulse Rate 73 Respiratory Rate 20 Blood Pressure 123/63 Pulse Oximetry 95 Intake & Output 10/20/18 10/21/18 10/21/18 18:59 06:59 18:59 Intake Total 1710 / 1710 2142 / 2142 Output Total 1665 / 1665 30 / 30 Balance 45 / 45 2142 / 2142 -30 / -30 Weight 79.4 kg Intake: IV 1110 / 1110 1182 / 1182 NS Inj 1,000 ML @ 60 mls/hr IV. 1060 / 1060 1082 / 1082 CONT .[id number] [facility] Rx#:[id number] Ancef 2 GM Premix Inj 2 gm In 50 / 50 100 / 100 50 ml @ 100 mls/hr IV.SIG Q8H [facility]LEEN Rx#:[id number] Oral 600 / 600 960 / 960 Output: Urine 1650 / 1650 Wound Drainage Left Lateral Abdomen Other: # Voids 6 Date of Last Bowel Movement 10/20/18 10/20/18 # Bowel Movements 1 Narrative: GENERAL: Alert, oriented x3, NAD. SKIN: Warm and dry. HEAD: Normocephalic. EYES: No scleral icterus. No injection or drainage. NECK: Supple, trachea midline. No JVD or lymphadenopathy. CARDIOVASCULAR: Regular rate and rhythm without murmurs, gallops, or rubs. RESPIRATORY: Breath sounds equal bilaterally. No accessory muscle use. GASTROINTESTINAL: Abdomen soft, non-tender, nondistended. MUSCULOSKELETAL: No cyanosis, or edema. Retroperitoneal drain in place BACK: Nontender without obvious deformity. No CVA tenderness. Results - Labs CBC & Chem 7: 10/21/18 05:27 10/21/18 05:27 Laboratory Results - last 24 hr 10/21/18 10/21/18 05:27 05:27 WBC 5.0 RBC 3.14 L Hgb 8.8 L Hct 27.0 L MCV 85.8 MCH 28.1 MCHC 32.8 RDW 16.1 Plt Count 463 H MPV 7.9 Neut % (Auto) 60.2 Lymph % (Auto) 32.3 Bennett % (Auto) 3.9 Eos % (Auto) 2.6 Baso % (Auto) 1.0 Neut # (Auto) 3.0 Lymph # (Auto) 1.6 Bennett # (Auto) 0.2 Eos # (Auto) 0.1 Baso # (Auto) 0.1 WBC Differential . Differential Comment Auto diff final Sodium 141 Potassium 4.1 Chloride 107 Carbon Dioxide 27.8 Anion Gap 6 BUN 5 L Creatinine 0.59 Estimated GFR Greater than 89 Random Glucose 82 Calcium 8.6 Microbiology 10/15/18 13:34 Blood - Peripheral Aerobic Blood Culture - Final No growth in 5 days 10/15/18 13:34 Blood - Peripheral Anaerobic Blood Culture - Final No growth in 5 days 10/15/18 13:39 Blood - Peripheral Aerobic Blood Culture - Final No growth in 5 days 10/15/18 13:39 Blood - Peripheral Anaerobic Blood Culture - Final No growth in 5 days - Procedures For drainage of lumbar/retroperitoneal abscess Assessment and Plan - Assessment (1) Sepsis Code(s): A41.9 - Sepsis, unspecified organism Status: Acute (2) Retroperitoneal fluid collection Code(s): R18.8 - Other ascites Status: Acute (3) Chest pain Code(s): R07.9 - Chest pain, unspecified Status: Acute - Plan sepsis/ L retroperitoneal and flank complex fluid collection - CT A/P noncontrast showing what appears to be possibly a large left retroperitoneal hemorrhage, however, given the interspersed fat along the superior lateral margin of this area there is concern for possible fat- containing mass such as liposarcoma and further evaluation with contrast- enhanced CT or MRI is recommended to exclude an enhancing mass. There is extension of the inflammatory changes identified within the left subcutaneous fatty tissues. This results in mild left-sided hydronephrosis without evidence of distal obstructing stone - CT A/P with contrast showed complex collection in the left retroperitoneal and flank musculature felt to be mostly like an abscess - s/p CT-guided drainage - fluid culture with MSSA. - Continue Ancef Per ID recommendations. - Pain control (Toradol with Dilaudid for breakthrough) counseled regarding narcotics. - Heating pads per Normocytic anemia. No gross bleeding - Slightly worse secondary to dilution. Hemodynamically stable per - Comparison of labs from prior visits in 2017 show this is new - She endorses some occasional BRBPR which she attributes to hemorrhoids - Anemia likely secondary to intraabdominal process with some associated (but not active) hemorrhage Polysubstance abuse - Patient admits to taking some non-prescribed methadone but denies any other drug use aside from her Lortab that's prescribed - UDS + for cocaine Hepatitis C, treatment naive - LFTs WNL - Avoid hepatotoxic agents DVT prophylaxis: SCDs
[2018-10-21] MEDS: Temazepam 15 MG Capsule PO PRN (23:18)
[2018-10-22] MEDS: Sod Chloride 0.9% Inj 1,000 ML IV.CONT SCH ×3 (03:20→20:56)
[2018-10-22] MEDS: ceFAZolin 2 GM Premix Inj 2 GM/50 ML PIGGYBACK IV.SIG SCH ×3 (04:21→20:49)
[2018-10-22] MEDS: HYDROmorphone PF Inj 2 MG/ML Vial IV.PUSH PRN ×3 (06:02→14:40)
[2018-10-22] MEDS: Senna/Docusate Sodium 8.6/50 MG Tablet PO SCH ×2 (08:42→20:50)
[2018-10-22] MEDS: Sodium Chloride 0.9% 2 ML Flush BID IV.FLUSH SCH ×2 (08:43→20:50)
[2018-10-22] MEDS: Budesonide-Formoterol 160/4.5 MCG 6 GM Inhaler INH SCH ×2 (09:39→20:51)
--- NOTE | 2018-10-22 16:30 | P.PN ---
Subjective Interval history: Follow-up for left pelvis iliopsoas abscess, substance abuse. Patient is resting in bed. No fever, chills. Physical Exam Vital signs: Vital Signs 10/21/18 18:00 10/21/18 18:02 10/21/18 20:00 Temperature 98.7 F 98.4 F Pulse Rate 71 61 Respiratory Rate 16 17 20 Blood Pressure 142/69 H 132/65 Pulse Oximetry 100 96 10/22/18 00:00 10/22/18 04:00 10/22/18 06:35 Temperature 97.4 F L Pulse Rate 68 50 L 59 L Respiratory Rate 18 Blood Pressure 125/69 Pulse Oximetry 94 L 10/22/18 08:50 10/22/18 14:25 Temperature 98.6 F Pulse Rate 59 L 62 Respiratory Rate 14 Blood Pressure 136/72 Pulse Oximetry 100 Intake & Output 10/21/18 10/22/18 10/22/18 18:59 06:59 18:59 Intake Total 530 / 530 1498 / 1498 50 / 50 Output Total 30 / 30 Balance 500 / 500 1498 / 1498 50 / 50 Weight 79.4 kg Intake: IV 50 / 50 1018 / 1018 50 / 50 NS Inj 1,000 ML @ 60 mls/hr IV. 918 / 918 CONT .[id number] [facility]LEEN Rx#:[id number] Ancef 2 GM Premix Inj 2 gm In 50 / 50 100 / 100 50 / 50 50 ml @ 100 mls/hr IV.SIG Q8H [facility]LEEN Rx#:[id number] Oral 480 / 480 480 / 480 Output: Wound Drainage 30 / 30 Left Lateral Abdomen 30 / 30 Other: # Voids 3 400 Date of Last Bowel Movement 10/20/18 10/20/18 10/20/18 Narrative: GENERAL: Alert, oriented x3, NAD. SKIN: Warm and dry. HEAD: Normocephalic. EYES: No scleral icterus. No injection or drainage. NECK: Supple, trachea midline. No JVD or lymphadenopathy. CARDIOVASCULAR: Regular rate and rhythm without murmurs, gallops, or rubs. RESPIRATORY: Breath sounds equal bilaterally. No accessory muscle use. GASTROINTESTINAL: Abdomen soft, non-tender, nondistended. MUSCULOSKELETAL: No cyanosis, or edema. Retroperitoneal drain in place BACK: Nontender without obvious deformity. No CVA tenderness. Results - Labs CBC & Chem 7: 11/24/18 05:27 10/21/18 05:27 - Procedures For drainage of lumbar/retroperitoneal abscess Assessment and Plan - Assessment (1) Sepsis Code(s): A41.9 - Sepsis, unspecified organism Status: Acute (2) Retroperitoneal fluid collection Code(s): R18.8 - Other ascites Status: Acute (3) Chest pain Code(s): R07.9 - Chest pain, unspecified Status: Acute - Plan sepsis/ L retroperitoneal and flank complex fluid collection - CT A/P noncontrast showing what appears to be possibly a large left retroperitoneal hemorrhage, however, given the interspersed fat along the superior lateral margin of this area there is concern for possible fat- containing mass such as liposarcoma and further evaluation with contrast- enhanced CT or MRI is recommended to exclude an enhancing mass. There is extension of the inflammatory changes identified within the left subcutaneous fatty tissues. This results in mild left-sided hydronephrosis without evidence of distal obstructing stone - CT A/P with contrast showed complex collection in the left retroperitoneal and flank musculature felt to be mostly like an abscess - s/p CT-guided drainage - fluid culture with MSSA. - Continue Ancef Per ID recommendations. - Pain control (Toradol with Dilaudid for breakthrough) counseled regarding narcotics. - Heating pads per - Repeat scan this coming week once drainage is slowed down. Normocytic anemia. No gross bleeding - Slightly worse secondary to dilution. Hemodynamically stable per - Comparison of labs from prior visits in 2017 show this is new - She endorses some occasional BRBPR which she attributes to hemorrhoids - Anemia likely secondary to intraabdominal process with some associated (but not active) hemorrhage Polysubstance abuse - Patient admits to taking some non-prescribed methadone but denies any other drug use aside from her Lortab that's prescribed - UDS + for cocaine Hepatitis C, treatment naive - LFTs WNL - Avoid hepatotoxic agents DVT prophylaxis: SCDs
[2018-10-22] MEDS: Temazepam 15 MG Capsule PO PRN (23:15)
[2018-10-23] MEDS: ceFAZolin 2 GM Premix Inj 2 GM/50 ML PIGGYBACK IV.SIG SCH ×3 (04:45→20:39)
[2018-10-23] MEDS: HYDROmorphone PF Inj 2 MG/ML Vial IV.PUSH PRN ×5 (04:51→23:01)
[2018-10-23] MEDS: Sod Chloride 0.9% Inj 1,000 ML IV.CONT SCH ×2 (06:34→23:03)
[2018-10-23] MEDS: Senna/Docusate Sodium 8.6/50 MG Tablet PO SCH ×2 (08:14→20:41)
[2018-10-23] MEDS: Sodium Chloride 0.9% 2 ML Flush BID IV.FLUSH SCH ×2 (08:15→20:40)
[2018-10-23] MEDS: Budesonide-Formoterol 160/4.5 MCG 6 GM Inhaler INH SCH ×2 (08:16→20:48)
--- NOTE | 2018-10-23 13:46 | P.PNID ---
Subjective Remarks: Patient is a 43-year-old female, presented to the hospital for further evaluation of 3-week history of worsening left flank pain and left-sided abdominal pain. Patient stated that back in June she is started having pain in her back and in the left flank area. She went to the emergency room, and was told that she has degenerative disease in the disc and she was discharged. The pain eventually got better but the pain started going down her left lower extremity. She also had noted that her leg was swollen. The swelling gradually improve over time, and she has had problem ambulating. The last 3 weeks the pain in her back came back and this time it was also radiating to the left side of her abdomen. Was progressively worsening. She was having some fevers and chills. She denies any urinary retention or incontinence, and no stool incontinence. Patient has a remote history of IV drug use, but has used cocaine in other ways. She presented back to the hospital, and imaging study is showing a complex fluid collection in the retroperitoneal area. She has had some low-grade fevers. Her WBC is 13,000. Urinalysis okay. Infectious disease consultation has been requested to assist with evaluation and treatment. Patient is currently on n.p.o. There is an IR consult to do a diagnostic tap of the fluid collection, possibly drainage. Notes reviewed Temps ok Had IR aspiration of fluid collection - C/S MSSA Drain in place Lumbar spine MRI, no discitis BC negative ESR 87 CRP 7.37 ALLERGY to PCN, but TOLERATES CEPHALOSPORINS Antibiotics: Ancef Past Medical History: Endometriosis History of intravenous drug abuse Substance abuse Hepatitis C History of hand surgery Hx of cholecystectomy Allergies/Adverse Reactions: Allergies morphine Allergy (Severe, Verified 10/15/18 08:28) HIVES-SOB penicillin G Allergy (Severe, Verified 10/15/18 08:28) SWELLING Sulfa (Sulfonamide Antibiotics) Allergy (Severe, Verified 10/15/18 08:28) SWELLING gabapentin Allergy (Verified 10/15/18 08:28) Weight Gain Objective Vital Signs 10/22/18 14:25 10/22/18 18:00 10/22/18 20:00 Temperature 98.6 F 98.6 F 97.6 F Pulse Rate 62 77 65 Respiratory Rate 14 15 18 Blood Pressure 136/72 146/76 H 124/59 L Pulse Oximetry 100 100 95 10/23/18 00:00 10/23/18 08:00 10/23/18 12:00 Temperature 98.1 F 98.4 F Pulse Rate 79 61 76 Respiratory Rate 18 17 Blood Pressure 145/80 H 112/65 Pulse Oximetry 99 95 Intake & Output 10/22/18 10/23/18 10/23/18 18:59 06:59 18:59 Intake Total 530 / 530 1228 / 1228 50 / 50 Balance 530 / 530 1228 / 1228 50 / 50 Weight 79.4 kg Intake: IV 50 / 50 1018 / 1018 50 / 50 NS Inj 1,000 ML @ 60 mls/hr IV. 918 / 918 CONT .[id number] [facility] Rx#:[id number] Ancef 2 GM Premix Inj 2 gm In 50 / 50 100 / 100 50 / 50 50 ml @ 100 mls/hr IV.SIG Q8H [facility] Rx#:[id number] Oral 480 / 480 210 / 210 Other: # Voids 3 2 Date of Last Bowel Movement 10/20/18 10/20/18 10/15/18 13:34 Blood - Peripheral Aerobic Blood Culture - Final No growth in 5 days 10/15/18 13:34 Blood - Peripheral Anaerobic Blood Culture - Final No growth in 5 days 10/15/18 13:39 Blood - Peripheral Aerobic Blood Culture - Final No growth in 5 days 10/15/18 13:39 Blood - Peripheral Anaerobic Blood Culture - Final No growth in 5 days Imaging: ITS Impressions Chest X-Ray 10/15/18 08:38 CONCLUSION: Negative examination. Abdomen/Pelvis CT 10/15/18 10:15 CONCLUSION: Complex collection in the left retroperitoneal and flank musculature, felt most likely abscess. Percutaneous drainage under CT guidance does appear feasible Retroperitoneal Abscess Drainage 10/16/18 00:00 CONCLUSION: Uncomplicated CT guided drainage. Lumbar Spine MRI 10/18/18 00:00 CONCLUSION: 1. Left iliopsoas abscess partially visualized. Prior imaging shows this in better detail. 2. Abnormal signal extending from the left iliopsoas abscess towards and into the left L5 neural foramen consistent with phlegmon but no liquefaction to an abscess at this point. This may generate a left L5 radiculopathy. Physical Exam: GENERAL: awake and alert, not in respiratory distress. SKIN: Cool and dry. No generalized rash HEAD: Atraumatic. Normocephalic. No temporal wasting, or tenderness. EYES: [place] conjunctiva. No petechia or hemorrhage. No scleral icterus. No injection or drainage. EARS, NOSE AND THROAT: Mucous membranes pink and moist. No oral lesions noted. No exudate. No oral thrush. NECK: Trachea midline. Supple and not tender, no meningeal signs CARDIOVASCULAR: Regular rate and rhythm. No murmurs, rubs or gallops heard RESPIRATORY: Clear to auscultation. Breath sounds equal bilaterally. No rales , wheezing or rhonchi ABDOMEN: Soft, nondistended. Has tenderness on L side of abdomen. Bowel sounds present and normoactive. Drain in place. EXTREMITIES: No clubbing, cyanosis, or edema. No joint effusion, has good ROM. No calf tenderness. Well perfused and warm. NEUROLOGICAL: non-focal PSYCHIATRIC: Normal affect, calm and cooperative. LINE: No evidence of infection Assessment and Plan - Plan Impression L retroperitoneal and flank complex fluid collection ?old Lumbar discitis on CT Admits to remote IVDU, has been using cocaine but not IV Allergy to PCN, has tolerated cephalosporins Recommendation Continue Ancef Follow C/S If drain output continues to be low - repeat CT Follow temps Monitor progress
--- NOTE | 2018-10-23 14:40 | P.PN ---
Subjective Interval history: Follow-up for left pelvis iliopsoas abscess, substance abuse. Patient is doing well. No fever, chills. Physical Exam Vital signs: Vital Signs 10/22/18 18:00 10/22/18 20:00 10/23/18 00:00 Temperature 98.6 F 97.6 F Pulse Rate 77 65 79 Respiratory Rate 15 18 Blood Pressure 146/76 H 124/59 L Pulse Oximetry 100 95 10/23/18 08:00 10/23/18 12:00 Temperature 98.1 F 98.4 F Pulse Rate 61 76 Respiratory Rate 18 17 Blood Pressure 145/80 H 112/65 Pulse Oximetry 99 95 Intake & Output 10/22/18 10/23/18 10/23/18 18:59 06:59 18:59 Intake Total 530 / 530 1228 / 1228 50 / 50 Balance 530 / 530 1228 / 1228 50 / 50 Weight 79.4 kg Intake: IV 50 / 50 1018 / 1018 50 / 50 NS Inj 1,000 ML @ 60 mls/hr IV. 918 / 918 CONT .[id number] [facility] Rx#:[id number] Ancef 2 GM Premix Inj 2 gm In 50 / 50 100 / 100 50 / 50 50 ml @ 100 mls/hr IV.SIG Q8H [facility] Rx#:[id number] Oral 480 / 480 210 / 210 Other: # Voids 3 2 Date of Last Bowel Movement 10/20/18 10/20/18 Narrative: GENERAL: Alert, oriented x3, NAD. SKIN: Warm and dry. HEAD: Normocephalic. EYES: No scleral icterus. No injection or drainage. NECK: Supple, trachea midline. No JVD or lymphadenopathy. CARDIOVASCULAR: Regular rate and rhythm without murmurs, gallops, or rubs. RESPIRATORY: Breath sounds equal bilaterally. No accessory muscle use. GASTROINTESTINAL: Abdomen soft, non-tender, nondistended. MUSCULOSKELETAL: No cyanosis, or edema. Retroperitoneal drain in place BACK: Nontender without obvious deformity. No CVA tenderness. Results - Labs CBC & Chem 7: 10/21/18 05:27 10/21/18 05:27 - Procedures For drainage of lumbar/retroperitoneal abscess Assessment and Plan - Assessment (1) Sepsis Code(s): A41.9 - Sepsis, unspecified organism Status: Acute (2) Retroperitoneal fluid collection Code(s): R18.8 - Other ascites Status: Acute (3) Chest pain Code(s): R07.9 - Chest pain, unspecified Status: Acute - Plan sepsis/ L retroperitoneal and flank complex fluid collection - CT A/P noncontrast showing what appears to be possibly a large left retroperitoneal hemorrhage, however, given the interspersed fat along the superior lateral margin of this area there is concern for possible fat- containing mass such as liposarcoma and further evaluation with contrast- enhanced CT or MRI is recommended to exclude an enhancing mass. There is extension of the inflammatory changes identified within the left subcutaneous fatty tissues. This results in mild left-sided hydronephrosis without evidence of distal obstructing stone - CT A/P with contrast showed complex collection in the left retroperitoneal and flank musculature felt to be mostly like an abscess - s/p CT-guided drainage - fluid culture with MSSA. - Continue Ancef Per ID recommendations. - Pain control (Toradol with Dilaudid for breakthrough) counseled regarding narcotics. - Heating pads - Repeat CT scan this week once drainage continues to be low. Normocytic anemia. No gross bleeding - Slightly worse secondary to dilution. Hemodynamically stable per - Comparison of labs from prior visits in 2017 show this is new - She endorses some occasional BRBPR which she attributes to hemorrhoids - Anemia likely secondary to intraabdominal process with some associated (but not active) hemorrhage Polysubstance abuse - Patient admits to taking some non-prescribed methadone but denies any other drug use aside from her Lortab that's prescribed - UDS + for cocaine Hepatitis C, treatment naive - LFTs WNL - Avoid hepatotoxic agents DVT prophylaxis: SCDs
[2018-10-23] MEDS: Temazepam 15 MG Capsule PO PRN (23:17)
[2018-10-24] MEDS: HYDROmorphone PF Inj 2 MG/ML Vial IV.PUSH PRN ×5 (04:23→22:11)
[2018-10-24] MEDS: ceFAZolin 2 GM Premix Inj 2 GM/50 ML PIGGYBACK IV.SIG SCH ×3 (04:26→20:20)
[2018-10-24] MEDS: Sodium Chloride 0.9% 2 ML Flush BID IV.FLUSH SCH ×2 (08:04→20:21)
[2018-10-24] MEDS: Senna/Docusate Sodium 8.6/50 MG Tablet PO SCH ×2 (08:04→20:21)
[2018-10-24] MEDS: Budesonide-Formoterol 160/4.5 MCG 6 GM Inhaler INH SCH ×2 (08:05→20:21)
--- NOTE | 2018-10-24 11:45 | US ---
EXAM DATE: 10/24/2018 11:36 AM EST AGE/SEX: 43 years / Female INDICATIONS: Pain. CLINICAL DATA: This is the patient's initial encounter. Patient reports that signs and symptoms have been present for 1 week and indicates a pain score of 5/10. MEDICAL/SURGICAL HISTORY: . . Endometriosis. Hepatitis C. Intravenous drug abuse. Subst ance abuse. Cholecystectomy. Hand surgery. COMPARISON: [facility] – [place], CT ABDOMEN & PELVIS W CONTRAST, 10/15/2018. . MEASUREMENTS: Uterus:__7.9 x 5.0 x 3.7 cm Endometrial Stripe:__4 mm Right Ovary:__ 3.9 x 2.6 x 1.8 cm Left Ovary:__ 4.1 x 3.5 x 1.3 cm FINDINGS: Uterus: Occasional parenchymal calcifications. Endometrial Stripe: The endometrial stripe displays homogeneous echotexture. Right Ovary: Ovary contains no mass or significant cystic lesion. Left Ovary: Ovary contains no mass or significant cystic lesion. Fluid: Trace free fluid. Other: None. CONCLUSION: Unremarkable sonographic appearance of the pelvis. Electronically signed by: Ronan Sauer MD 10/24/2018 11:44 AM EST
--- NOTE | 2018-10-24 17:30 | XR ---
EXAM DATE: 10/24/2018 5:18 PM EST AGE/SEX: 43 years / Female INDICATIONS: Abdominal pain. Constipation. CLINICAL DATA: This is the patient's subsequent encounter. Patient reports that signs and symptoms h ave been present for 3 days and indicates a pain score of 5/10. MEDICAL/SURGICAL HISTORY: . . Endometriosis. Hepatitis C. Intravenous drug abuse. Subst ance abuse. Cholecystectomy. Hand surgery. Retroperitoneal drain. . COMPARISON: No prior exams available for comparison. FINDINGS: Pigtail drainage catheter overlies the left iliac crest. Surgical clips in the right upper quadrant from previous cholecystectomy. Abundant stool throughout the colon. No abnormally dilated small bowel appreciated. No suspicious calcific densities. Regional skeleton is grossly intact. CONCLUSION: Constipation Electronically signed by: Ronan Sauer MD 10/24/2018 5:28 PM EST
--- NOTE | 2018-10-24 18:03 | P.PN ---
Subjective Interval history: Follow-up for left pelvis iliopsoas abscess, substance abuse. Patient complains of left lower quadrant abdominal pain as well as inguinal area pain. No fever or chills. Physical Exam Vital signs: Vital Signs 10/23/18 20:00 10/24/18 00:00 10/24/18 04:00 Temperature 97.3 F L 97.6 F 97.6 F Pulse Rate 56 L 66 64 Respiratory Rate 18 18 18 Blood Pressure 119/73 109/60 105/66 Pulse Oximetry 98 95 95 10/24/18 07:51 10/24/18 08:00 10/24/18 12:00 Temperature 97.8 F 98.1 F Pulse Rate 62 65 Respiratory Rate 18 16 16 Blood Pressure 117/67 118/59 L Pulse Oximetry 95 99 10/24/18 16:00 Temperature 98.1 F Pulse Rate 61 Respiratory Rate 18 Blood Pressure 110/69 Pulse Oximetry 97 Intake & Output 10/23/18 10/24/18 10/24/18 18:59 06:59 18:59 Intake Total 890 / 890 1818 / 1818 50 / 50 Output Total 1800 / 1800 3210 / 3210 Balance -910 / -910 -1392 / -1392 50 / 50 Weight 79.7 kg Intake: IV 50 / 50 1818 / 1818 50 / 50 NS Inj 1,000 ML @ 60 mls/hr IV. 1718 / 1718 CONT .[id number] [facility] Rx#:[id number] Ancef 2 GM Premix Inj 2 gm In 50 / 50 100 / 100 50 / 50 50 ml @ 100 mls/hr IV.SIG Q8H [facility] Rx#:[id number] Oral 840 / 840 Output: Urine 1800 / 1800 3200 / 3200 Wound Drainage Left Lateral Abdomen Other: Date of Last Bowel Movement 10/20/18 # Bowel Movements 0 Narrative: GENERAL: Alert, oriented x3, NAD. SKIN: Warm and dry. HEAD: Normocephalic. EYES: No scleral icterus. No injection or drainage. NECK: Supple, trachea midline. No JVD or lymphadenopathy. CARDIOVASCULAR: Regular rate and rhythm without murmurs, gallops, or rubs. RESPIRATORY: Breath sounds equal bilaterally. No accessory muscle use. GASTROINTESTINAL: Abdomen soft, non-tender, nondistended. MUSCULOSKELETAL: No cyanosis, or edema. Retroperitoneal drain in place BACK: Nontender without obvious deformity. No CVA tenderness. Results - Labs CBC & Chem 7: 10/21/18 05:27 10/21/18 05:27 - Imaging Impressions Abdomen X-Ray 10/24/18 00:00 CONCLUSION: Constipation Pelvis Ultrasound 10/24/18 00:00 CONCLUSION: Unremarkable sonographic appearance of the pelvis. - Procedures For drainage of lumbar/retroperitoneal abscess Assessment and Plan - Assessment (1) Sepsis Code(s): A41.9 - Sepsis, unspecified organism Status: Acute (2) Retroperitoneal fluid collection Code(s): R18.8 - Other ascites Status: Acute (3) Chest pain Code(s): R07.9 - Chest pain, unspecified Status: Acute - Plan sepsis/ L retroperitoneal and flank complex fluid collection - CT A/P noncontrast showing what appears to be possibly a large left retroperitoneal hemorrhage, however, given the interspersed fat along the superior lateral margin of this area there is concern for possible fat- containing mass such as liposarcoma and further evaluation with contrast- enhanced CT or MRI is recommended to exclude an enhancing mass. There is extension of the inflammatory changes identified within the left subcutaneous fatty tissues. This results in mild left-sided hydronephrosis without evidence of distal obstructing stone - CT A/P with contrast showed complex collection in the left retroperitoneal and flank musculature felt to be mostly like an abscess - s/p CT-guided drainage - fluid culture with MSSA. - Continue Ancef Per ID recommendations. - Pain control (Toradol with Dilaudid for breakthrough) counseled regarding narcotics. - Heating pads - We will discuss with ID to see if we need to repeat CT scan Normocytic anemia. No gross bleeding - Slightly worse secondary to dilution. Hemodynamically stable per - Comparison of labs from prior visits in 2017 show this is new - She endorses some occasional BRBPR which she attributes to hemorrhoids - Anemia likely secondary to intraabdominal process with some associated (but not active) hemorrhage Polysubstance abuse - Patient admits to taking some non-prescribed methadone but denies any other drug use aside from her Lortab that's prescribed - UDS + for cocaine Hepatitis C, treatment naive - LFTs WNL - Avoid hepatotoxic agents Left lower quadrant pain We obtained pelvic ultrasound which was unremarkable. KUB shows constipation. Who continue to use bowel regimen as well as start Fleet enema if necessary. Full code. DVT prophylaxis: SCDs
[2018-10-24] MEDS: Sod Chloride 0.9% Inj 1,000 ML IV.CONT SCH (18:04)
[2018-10-24] MEDS ORDERED: Mineral Oil Enema 118 ML Bottle RECTAL PRN (19:00)
[2018-10-24] MEDS: Temazepam 15 MG Capsule PO PRN (22:11)
[2018-10-25] MEDS: HYDROmorphone PF Inj 2 MG/ML Vial IV.PUSH PRN ×4 (02:19→19:50)
[2018-10-25] MEDS: ceFAZolin 2 GM Premix Inj 2 GM/50 ML PIGGYBACK IV.SIG SCH ×3 (04:30→20:10)
[2018-10-25] MEDS: Sod Chloride 0.9% Inj 1,000 ML IV.CONT SCH (08:57)
[2018-10-25] MEDS: Senna/Docusate Sodium 8.6/50 MG Tablet PO SCH ×2 (08:58→20:10)
[2018-10-25] MEDS: Sodium Chloride 0.9% 2 ML Flush BID IV.FLUSH SCH ×2 (08:58→20:10)
[2018-10-25] MEDS: Budesonide-Formoterol 160/4.5 MCG 6 GM Inhaler INH SCH ×2 (08:58→23:00)
--- NOTE | 2018-10-25 12:27 | P.PNID ---
Subjective Remarks: Patient is a 43-year-old female, presented to the hospital for further evaluation of 3-week history of worsening left flank pain and left-sided abdominal pain. Patient stated that back in June she is started having pain in her back and in the left flank area. She went to the emergency room, and was told that she has degenerative disease in the disc and she was discharged. The pain eventually got better but the pain started going down her left lower extremity. She also had noted that her leg was swollen. The swelling gradually improve over time, and she has had problem ambulating. The last 3 weeks the pain in her back came back and this time it was also radiating to the left side of her abdomen. Was progressively worsening. She was having some fevers and chills. She denies any urinary retention or incontinence, and no stool incontinence. Patient has a remote history of IV drug use, but has used cocaine in other ways. She presented back to the hospital, and imaging study is showing a complex fluid collection in the retroperitoneal area. She has had some low-grade fevers. Her WBC is 13,000. Urinalysis okay. Infectious disease consultation has been requested to assist with evaluation and treatment. Patient is currently on n.p.o. There is an IR consult to do a diagnostic tap of the fluid collection, possibly drainage. Notes reviewed Temps ok Drain in place - not a lot of output C/O abdominal pain - L side mostly Lumbar spine MRI, no discitis BC negative ESR 87 CRP 7.37 ALLERGY to PCN, but TOLERATES CEPHALOSPORINS No rash or itching Antibiotics: Ancef Past Medical History: Endometriosis History of intravenous drug abuse Substance abuse Hepatitis C History of hand surgery Hx of cholecystectomy Allergies/Adverse Reactions: Allergies morphine Allergy (Severe, Verified 10/15/18 08:28) HIVES-SOB penicillin G Allergy (Severe, Verified 10/15/18 08:28) SWELLING Sulfa (Sulfonamide Antibiotics) Allergy (Severe, Verified 10/15/18 08:28) SWELLING gabapentin Allergy (Verified 10/15/18 08:28) Weight Gain Objective Vital Signs 10/24/18 16:00 10/24/18 20:00 10/25/18 00:00 Temperature 98.1 F 98.1 F 97.8 F Pulse Rate 61 67 60 Respiratory Rate 18 19 17 Blood Pressure 110/69 111/57 L 127/72 Pulse Oximetry 97 96 98 10/25/18 04:00 10/25/18 08:00 Temperature 97.9 F 98.4 F Pulse Rate 57 L 62 Respiratory Rate 19 18 Blood Pressure 106/58 L 118/58 L Pulse Oximetry 97 97 Intake & Output 10/24/18 10/25/18 10/25/18 18:59 06:59 18:59 Intake Total 1050 / 1050 1601 / 1601 199 / 199 Output Total 2326 / 2326 Balance 1050 / 1050 -725 / -725 199 / 199 Weight 75.7 kg Intake: IV 1050 / 1050 801 / 801 199 / 199 NS Inj 1,000 ML @ 60 mls/hr IV. 1000 / 1000 701 / 701 199 / 199 CONT .[id number] [facility] Rx#:[id number] Ancef 2 GM Premix Inj 2 gm In 50 / 50 100 / 100 50 ml @ 100 mls/hr IV.SIG Q8H [facility] Rx#:[id number] Oral 800 / 800 Output: Urine 2300 / 2300 Stool Wound Drainage Left Lateral Abdomen Other: # Voids 4 Date of Last Bowel Movement 10/20/18 10/24/18 Imaging: ITS Impressions Chest X-Ray 10/15/18 08:38 CONCLUSION: Negative examination. Abdomen/Pelvis CT 10/15/18 10:15 CONCLUSION: Complex collection in the left retroperitoneal and flank musculature, felt most likely abscess. Percutaneous drainage under CT guidance does appear feasible Retroperitoneal Abscess Drainage 10/16/18 00:00 CONCLUSION: Uncomplicated CT guided drainage. Lumbar Spine MRI 10/18/18 00:00 CONCLUSION: 1. Left iliopsoas abscess partially visualized. Prior imaging shows this in better detail. 2. Abnormal signal extending from the left iliopsoas abscess towards and into the left L5 neural foramen consistent with phlegmon but no liquefaction to an abscess at this point. This may generate a left L5 radiculopathy. Abdomen X-Ray 10/24/18 00:00 CONCLUSION: Constipation Pelvis Ultrasound 10/24/18 00:00 CONCLUSION: Unremarkable sonographic appearance of the pelvis. Physical Exam: GENERAL: awake and alert, not in respiratory distress. SKIN: Cool and dry. No generalized rash EYES: [place] conjunctiva. No petechia or hemorrhage. No scleral icterus. No injection or drainage. EARS, NOSE AND THROAT: Mucous membranes pink and moist. No oral lesions noted. No exudate. No oral thrush. NECK: Trachea midline. Supple and not tender, no meningeal signs CARDIOVASCULAR: Regular rate and rhythm. No murmurs, rubs or gallops heard RESPIRATORY: Clear to auscultation. Breath sounds equal bilaterally. No rales , wheezing or rhonchi ABDOMEN: Soft, nondistended. Has tenderness on L side of abdomen. Bowel sounds present and normoactive. Drain in place. EXTREMITIES: No clubbing, cyanosis, or edema. No joint effusion, has good ROM. No calf tenderness. Well perfused and warm. NEUROLOGICAL: non-focal PSYCHIATRIC: Normal affect, calm and cooperative. LINE: No evidence of infection Assessment and Plan - Plan Impression L retroperitoneal and flank complex fluid collection ?old Lumbar discitis on CT - MRI ok Admits to remote IVDU, has been using cocaine but not IV Allergy to PCN, has tolerated cephalosporins Recommendation Continue Ancef Repeat CT A/P Follow temps Monitor progress D/W Dr Bird Explained plan to the patient
--- NOTE | 2018-10-25 16:13 | CT ---
EXAM DATE: 10/25/2018 3:56 PM EST AGE/SEX: 43 years / Female INDICATIONS: Abscess follow up drain. CLINICAL DATA: This is the patient's subsequent encounter. Patient reports that signs and symptoms h ave been present for 1 week and indicates a pain score of 3/10. MEDICAL/SURGICAL HISTORY: Hepatitis C. Cholecystectomy. RADIATION DOSE: 6.67 CTDI (mGy) COMPARISON: [facility] – [place] LUMBAR SPINE W & W/O CONTRAST, 10/18/2018. . TECHNIQUE: Multiple contiguous axial images were obtained through the abdomen. Images were obtained using multiple row detector helical technique. Using automated exposure control and adjustment of the mA and/or kV according to patient size, radiation dose was kept as low as reasonably achievable to o btain optimal diagnostic quality images. DICOM format image data is available electronically for rev iew and comparison. FINDINGS: There has been significant interval improvement of the left iliopsoas collection/abscess status post drain placement. No significant fluid or air remains. Scattered inflammatory changes are still noted. There has been interval slight improvement of the pelvicaliectasis on the left compared to previous examination. Minimal residual left lower pole perinephric streaking is noted. The patient is status p ost cholecystectomy. Chronic extensive endplate sclerosis and erosive changes are noted at L4-5 level . The remainder of the intra-abdominal viscera are stable in appearance. No bowel obstruction is note d. CONCLUSION: 1. Significant interval improvement of the left iliopsoas collection/abscess status post drain place ment. No significant fluid or air remains. Scattered inflammatory changes are still noted. 2. Interval slight improvement of the pelvicaliectasis on the left compared to previous examination. Minimal residual left lower pole perinephric streaking is noted. 3. Chronic extensive endplate sclerosis and erosive changes are noted at L4-5 level. Electronically signed by: Francis Courtney MD 10/25/2018 4:12 PM EST
--- NOTE | 2018-10-25 16:23 | P.PN ---
Subjective Interval history: Follow-up for left pelvis iliopsoas abscess, substance abuse. Patient is doing well. Left sided abdominal pain is improved but still there. No fever, chills. She is going for CT abd/pelvis today. Physical Exam Vital signs: Vital Signs 10/24/18 20:00 10/25/18 00:00 10/25/18 04:00 Temperature 98.1 F 97.8 F 97.9 F Pulse Rate 67 60 57 L Respiratory Rate 19 17 19 Blood Pressure 111/57 L 127/72 106/58 L Pulse Oximetry 96 98 97 10/25/18 08:00 10/25/18 12:00 Temperature 98.4 F 97.8 F Pulse Rate 62 63 Respiratory Rate 18 18 Blood Pressure 118/58 L 118/60 Pulse Oximetry 97 98 Intake & Output 10/24/18 10/25/18 10/25/18 18:59 06:59 18:59 Intake Total 1050 / 1050 1601 / 1601 299 / 299 Output Total 2326 / 2326 Balance 1050 / 1050 -725 / -725 299 / 299 Weight 75.7 kg Intake: IV 1050 / 1050 801 / 801 299 / 299 NS Inj 1,000 ML @ 60 mls/hr IV. 1000 / 1000 701 / 701 299 / 299 CONT .[id number] [facility]LEEN Rx#:[id number] Ancef 2 GM Premix Inj 2 gm In 50 / 50 100 / 100 50 ml @ 100 mls/hr IV.SIG Q8H COLLEEN Rx#:[id number] Oral 800 / 800 Output: Urine 2300 / 2300 Stool Wound Drainage Left Lateral Abdomen Other: # Voids 4 Date of Last Bowel Movement 10/20/18 10/24/18 10/24/18 Narrative: GENERAL: Alert, oriented x3, NAD. SKIN: Warm and dry. HEAD: Normocephalic. EYES: No scleral icterus. No injection or drainage. NECK: Supple, trachea midline. No JVD or lymphadenopathy. CARDIOVASCULAR: Regular rate and rhythm without murmurs, gallops, or rubs. RESPIRATORY: Breath sounds equal bilaterally. No accessory muscle use. GASTROINTESTINAL: Abdomen soft, non-tender, nondistended. MUSCULOSKELETAL: No cyanosis, or edema. Retroperitoneal drain in place BACK: Nontender without obvious deformity. No CVA tenderness. Results - Labs CBC & Chem 7: 10/21/18 05:27 10/21/18 05:27 - Imaging Impressions Abdomen X-Ray 10/24/18 00:00 CONCLUSION: Constipation Abdomen/Pelvis CT 10/25/18 00:00 CONCLUSION: 1. Significant interval improvement of the left iliopsoas collection/abscess status post drain placement. No significant fluid or air remains. Scattered inflammatory changes are still noted. 2. Interval slight improvement of the pelvicaliectasis on the left compared to previous examination. Minimal residual left lower pole perinephric streaking is noted. 3. Chronic extensive endplate sclerosis and erosive changes are noted at L4-5 level. - Procedures For drainage of lumbar/retroperitoneal abscess Assessment and Plan - Assessment (1) Sepsis Code(s): A41.9 - Sepsis, unspecified organism Status: Acute (2) Retroperitoneal fluid collection Code(s): R18.8 - Other ascites Status: Acute (3) Chest pain Code(s): R07.9 - Chest pain, unspecified Status: Acute - Plan sepsis/ L retroperitoneal and flank complex fluid collection - CT A/P noncontrast showing what appears to be possibly a large left retroperitoneal hemorrhage, however, given the interspersed fat along the superior lateral margin of this area there is concern for possible fat- containing mass such as liposarcoma and further evaluation with contrast- enhanced CT or MRI is recommended to exclude an enhancing mass. There is extension of the inflammatory changes identified within the left subcutaneous fatty tissues. This results in mild left-sided hydronephrosis without evidence of distal obstructing stone - CT A/P with contrast showed complex collection in the left retroperitoneal and flank musculature felt to be mostly like an abscess - s/p CT-guided drainage - fluid culture with MSSA. - Continue Ancef Per ID recommendations. - Pain control (Toradol with Dilaudid for breakthrough) counseled regarding narcotics. - Heating pads - Repeat CT abd/pelvis shows significant improvement of psoas abscess. Normocytic anemia. No gross bleeding - Slightly worse secondary to dilution. Hemodynamically stable per - Comparison of labs from prior visits in 2017 show this is new - She endorses some occasional BRBPR which she attributes to hemorrhoids - Anemia likely secondary to intraabdominal process with some associated (but not active) hemorrhage Polysubstance abuse - Patient admits to taking some non-prescribed methadone but denies any other drug use aside from her Lortab that's prescribed - UDS + for cocaine Hepatitis C, treatment naive - LFTs WNL - Avoid hepatotoxic agents Left lower quadrant pain We obtained pelvic ultrasound which was unremarkable. KUB shows constipation. continue to use bowel regimen as well as start Fleet enema if necessary. Full code. DVT prophylaxis: SCDs
[2018-10-26] MEDS: HYDROmorphone PF Inj 2 MG/ML Vial IV.PUSH PRN ×6 (00:01→23:02)
[2018-10-26] MEDS: Sod Chloride 0.9% Inj 1,000 ML IV.CONT SCH ×3 (00:01→20:57)
[2018-10-26] MEDS: Temazepam 15 MG Capsule PO PRN ×2 (00:06→23:03)
[2018-10-26] MEDS: ceFAZolin 2 GM Premix Inj 2 GM/50 ML PIGGYBACK IV.SIG SCH ×3 (04:39→20:45)
[2018-10-26] MEDS: Sodium Chloride 0.9% 2 ML Flush BID IV.FLUSH SCH ×2 (08:32→23:02)
[2018-10-26] MEDS: Budesonide-Formoterol 160/4.5 MCG 6 GM Inhaler INH SCH ×2 (08:33→23:02)
[2018-10-26] MEDS: Senna/Docusate Sodium 8.6/50 MG Tablet PO SCH ×2 (08:33→20:46)
--- NOTE | 2018-10-26 16:16 | P.PN ---
Subjective Interval history: Follow-up for left pelvis iliopsoas abscess, substance abuse. Doing well. She complains of yeast infection. She also has persistent left lower quadrant abdominal pain. No fever or chills. Physical Exam Vital signs: Vital Signs 10/25/18 17:53 10/25/18 20:00 10/25/18 23:39 Temperature 98.6 F 98.4 F Pulse Rate 60 77 Respiratory Rate 16 16 Blood Pressure 130/66 122/68 Pulse Oximetry 98 99 98 10/26/18 03:12 10/26/18 08:00 10/26/18 09:43 Temperature 98.8 F 98.1 F Pulse Rate 90 62 Respiratory Rate 16 18 Blood Pressure 131/84 113/74 Pulse Oximetry 99 99 99 10/26/18 12:00 10/26/18 16:00 Temperature 98.3 F 98.4 F Pulse Rate 75 69 Respiratory Rate 18 18 Blood Pressure 118/76 116/75 Pulse Oximetry 99 98 Intake & Output 10/25/18 10/26/18 10/26/18 18:59 06:59 18:59 Intake Total 779 / 779 840 / 840 Output Total 900 / 900 1500 / 1500 Balance -121 / -121 -660 / -660 Intake: IV 299 / 299 NS Inj 1,000 ML @ 60 mls/hr IV. 299 / 299 CONT .[id number] COLLEEN Rx#:[id number] Oral 480 / 480 840 / 840 Output: Urine 900 / 900 1500 / 1500 Other: Date of Last Bowel Movement 10/24/18 10/26/18 10/18/18 # Bowel Movements 1 1 Narrative: GENERAL: Alert, oriented x3, NAD. SKIN: Warm and dry. HEAD: Normocephalic. EYES: No scleral icterus. No injection or drainage. NECK: Supple, trachea midline. No JVD or lymphadenopathy. CARDIOVASCULAR: Regular rate and rhythm without murmurs, gallops, or rubs. RESPIRATORY: Breath sounds equal bilaterally. No accessory muscle use. GASTROINTESTINAL: Abdomen soft, non-tender, nondistended. MUSCULOSKELETAL: No cyanosis, or edema. Retroperitoneal drain in place BACK: Nontender without obvious deformity. No CVA tenderness. Results - Labs CBC & Chem 7: 10/21/18 05:27 10/21/18 05:27 - Procedures For drainage of lumbar/retroperitoneal abscess Assessment and Plan - Assessment (1) Sepsis Code(s): A41.9 - Sepsis, unspecified organism Status: Acute (2) Retroperitoneal fluid collection Code(s): R18.8 - Other ascites Status: Acute (3) Chest pain Code(s): R07.9 - Chest pain, unspecified Status: Acute - Plan sepsis/ L retroperitoneal and flank complex fluid collection - CT A/P noncontrast showing what appears to be possibly a large left retroperitoneal hemorrhage, however, given the interspersed fat along the superior lateral margin of this area there is concern for possible fat- containing mass such as liposarcoma and further evaluation with contrast- enhanced CT or MRI is recommended to exclude an enhancing mass. There is extension of the inflammatory changes identified within the left subcutaneous fatty tissues. This results in mild left-sided hydronephrosis without evidence of distal obstructing stone - CT A/P with contrast showed complex collection in the left retroperitoneal and flank musculature felt to be mostly like an abscess - s/p CT-guided drainage - fluid culture with MSSA. - Continue Ancef Per ID recommendations. - Pain control (Toradol with Dilaudid for breakthrough) counseled regarding narcotics. - Heating pads - Repeat CT abd/pelvis shows significant improvement of psoas abscess. Normocytic anemia. No gross bleeding - Slightly worse secondary to dilution. Hemodynamically stable per - Comparison of labs from prior visits in 2017 show this is new - She endorses some occasional BRBPR which she attributes to hemorrhoids - Anemia likely secondary to intraabdominal process with some associated (but not active) hemorrhage Polysubstance abuse - Patient admits to taking some non-prescribed methadone but denies any other drug use aside from her Lortab that's prescribed - UDS + for cocaine Hepatitis C, treatment naive - LFTs WNL - Avoid hepatotoxic agents Left lower quadrant pain We obtained pelvic ultrasound which was unremarkable. KUB shows constipation. continue to use bowel regimen as well as start Fleet enema if necessary. Yeast infection - one dose of Fluconazole 150mg. Full code. DVT prophylaxis: SCDs
[2018-10-27] MEDS: HYDROmorphone PF Inj 2 MG/ML Vial IV.PUSH PRN ×5 (03:25→22:35)
[2018-10-27] MEDS: ceFAZolin 2 GM Premix Inj 2 GM/50 ML PIGGYBACK IV.SIG SCH ×3 (05:22→20:41)
[2018-10-27] MEDS ORDERED: Fluconazole 100 MG Tablet PO ONE (08:00)
--- NOTE | 2018-10-27 08:01 | P.PNID ---
Subjective Remarks: Patient is a 43-year-old female, presented to the hospital for further evaluation of 3-week history of worsening left flank pain and left-sided abdominal pain. Patient stated that back in June she is started having pain in her back and in the left flank area. She went to the emergency room, and was told that she has degenerative disease in the disc and she was discharged. The pain eventually got better but the pain started going down her left lower extremity. She also had noted that her leg was swollen. The swelling gradually improve over time, and she has had problem ambulating. The last 3 weeks the pain in her back came back and this time it was also radiating to the left side of her abdomen. Was progressively worsening. She was having some fevers and chills. She denies any urinary retention or incontinence, and no stool incontinence. Patient has a remote history of IV drug use, but has used cocaine in other ways. She presented back to the hospital, and imaging study is showing a complex fluid collection in the retroperitoneal area. She has had some low-grade fevers. Her WBC is 13,000. Urinalysis okay. Infectious disease consultation has been requested to assist with evaluation and treatment. Patient is currently on n.p.o. There is an IR consult to do a diagnostic tap of the fluid collection, possibly drainage. Notes reviewed Temps ok Drain in place - increased output overnight C/O abdominal pain - L side mostly, better Lumbar spine MRI, no discitis Repeat CT with decreased size fluid collection BC negative ESR 87 CRP 7.37 ALLERGY to PCN, but TOLERATES CEPHALOSPORINS No rash or itching Constipated Antibiotics: Ancef Past Medical History: Endometriosis History of intravenous drug abuse Substance abuse Hepatitis C History of hand surgery Hx of cholecystectomy Allergies/Adverse Reactions: Allergies morphine Allergy (Severe, Verified 10/15/18 08:28) HIVES-SOB penicillin G Allergy (Severe, Verified 10/15/18 08:28) SWELLING Sulfa (Sulfonamide Antibiotics) Allergy (Severe, Verified 10/15/18 08:28) SWELLING gabapentin Allergy (Verified 10/15/18 08:28) Weight Gain Objective Vital Signs 10/26/18 08:00 10/26/18 09:43 10/26/18 12:00 Temperature 98.1 F 98.3 F Pulse Rate 62 75 Respiratory Rate 18 18 Blood Pressure 113/74 118/76 Pulse Oximetry 99 99 99 10/26/18 16:00 10/26/18 20:00 10/26/18 21:45 Temperature 98.4 F 98 F Pulse Rate 69 70 Respiratory Rate 18 14 Blood Pressure 116/75 119/74 Pulse Oximetry 98 98 99 10/27/18 00:00 10/27/18 04:00 Temperature 98 F 97.9 F Pulse Rate 72 66 Respiratory Rate 16 18 Blood Pressure 95/60 L 92/61 L Pulse Oximetry 16 L 100 Intake & Output 10/26/18 10/27/18 10/27/18 18:59 06:59 18:59 Intake Total 480 / 480 1300 / 1300 Output Total 1725 / 1725 Balance 480 / 480 -425 / -425 Weight 75.3 kg Intake: IV 100 / 100 Ancef 2 GM Premix Inj 2 gm In 100 / 100 50 ml @ 100 mls/hr IV.SIG Q8H COLLEEN Rx#:[id number] Oral 480 / 480 1200 / 1200 Output: Urine 1650 / 1650 Wound Drainage 75 / 75 Left Lateral Abdomen 75 / 75 Other: # Voids 3 Date of Last Bowel Movement 10/18/18 # Bowel Movements 0 Imaging: ITS Impressions Chest X-Ray 10/15/18 08:38 CONCLUSION: Negative examination. Retroperitoneal Abscess Drainage 10/16/18 00:00 CONCLUSION: Uncomplicated CT guided drainage. Lumbar Spine MRI 10/18/18 00:00 CONCLUSION: 1. Left iliopsoas abscess partially visualized. Prior imaging shows this in better detail. 2. Abnormal signal extending from the left iliopsoas abscess towards and into the left L5 neural foramen consistent with phlegmon but no liquefaction to an abscess at this point. This may generate a left L5 radiculopathy. Abdomen X-Ray 10/24/18 00:00 CONCLUSION: Constipation Pelvis Ultrasound 10/24/18 00:00 CONCLUSION: Unremarkable sonographic appearance of the pelvis. Abdomen/Pelvis CT 10/25/18 00:00 CONCLUSION: 1. Significant interval improvement of the left iliopsoas collection/abscess status post drain placement. No significant fluid or air remains. Scattered inflammatory changes are still noted. 2. Interval slight improvement of the pelvicaliectasis on the left compared to previous examination. Minimal residual left lower pole perinephric streaking is noted. 3. Chronic extensive endplate sclerosis and erosive changes are noted at L4-5 level. Physical Exam: GENERAL: awake and alert, NAD. SKIN: Cool and dry. No generalized rash EYES: [employer] conjunctiva. No petechia or hemorrhage. No scleral icterus. No injection or drainage. EARS, NOSE AND THROAT: Mucous membranes pink and moist. No oral lesions noted. No exudate. No oral thrush. NECK: Trachea midline. Supple and not tender, no meningeal signs CARDIOVASCULAR: Regular rate and rhythm. No murmurs, rubs or gallops heard RESPIRATORY: Clear to auscultation. Breath sounds equal bilaterally. No rales , wheezing or rhonchi ABDOMEN: Soft, nondistended. Mild tenderness. Bowel sounds present and normoactive. Drain in place. EXTREMITIES: No clubbing, cyanosis, or edema. No joint effusion, has good ROM. No calf tenderness. NEUROLOGICAL: non-focal PSYCHIATRIC: Normal affect, calm and cooperative. LINE: No evidence of infection Assessment and Plan - Plan Impression L retroperitoneal and flank complex fluid collection ?old Lumbar discitis on CT - MRI ok Admits to remote IVDU, has been using cocaine but not IV Allergy to PCN, has tolerated cephalosporins Recommendation Continue Ancef Follow temps Monitor progress Explained plan to the patient
[2018-10-27] MEDS: Senna/Docusate Sodium 8.6/50 MG Tablet PO SCH ×2 (08:06→20:41)
[2018-10-27] MEDS: Sodium Chloride 0.9% 2 ML Flush BID IV.FLUSH SCH ×2 (08:07→20:42)
[2018-10-27] MEDS: Budesonide-Formoterol 160/4.5 MCG 6 GM Inhaler INH SCH ×2 (08:07→21:00)
[2018-10-27] MEDS: Sod Chloride 0.9% Inj 1,000 ML IV.CONT SCH ×2 (10:43→14:51)
--- NOTE | 2018-10-27 16:35 | P.PN ---
Subjective Interval history: Follow-up for left pelvis iliopsoas abscess, substance abuse. Patient feels somewhat better today. No good BM in a while. Afebrile. Physical Exam Vital signs: Vital Signs 10/26/18 20:00 10/26/18 21:45 10/27/18 00:00 Temperature 98 F 98 F Pulse Rate 70 72 Respiratory Rate 14 16 Blood Pressure 119/74 95/60 L Pulse Oximetry 98 99 16 L 10/27/18 04:00 10/27/18 08:00 10/27/18 12:00 Temperature 97.9 F 98.3 F 99 F Pulse Rate 66 71 82 Respiratory Rate 18 18 18 Blood Pressure 92/61 L 102/67 138/89 Pulse Oximetry 100 98 97 10/27/18 12:14 10/27/18 15:30 Temperature Pulse Rate Respiratory Rate 20 Blood Pressure Pulse Oximetry 98 Intake & Output 10/26/18 10/27/18 10/27/18 18:59 06:59 18:59 Intake Total 480 / 480 1300 / 1300 1050 / 1050 Output Total 1725 / 1725 Balance 480 / 480 -425 / -425 1050 / 1050 Weight 75.3 kg Intake: IV 100 / 100 1050 / 1050 NS Inj 1,000 ML @ 60 mls/hr IV. 1000 / 1000 CONT .[id number] COLLEEN Rx#:[id number] Ancef 2 GM Premix Inj 2 gm In 100 / 100 50 / 50 50 ml @ 100 mls/hr IV.SIG Q8H COLLEEN Rx#:[id number] Oral 480 / 480 1200 / 1200 Output: Urine 1650 / 1650 Wound Drainage 75 / 75 Left Lateral Abdomen 75 / 75 Other: # Voids 3 Date of Last Bowel Movement 10/18/18 10/18/18 # Bowel Movements 0 Narrative: GENERAL: Alert, oriented x3, NAD. SKIN: Warm and dry. HEAD: Normocephalic. EYES: No scleral icterus. No injection or drainage. NECK: Supple, trachea midline. No JVD or lymphadenopathy. CARDIOVASCULAR: Regular rate and rhythm without murmurs, gallops, or rubs. RESPIRATORY: Breath sounds equal bilaterally. No accessory muscle use. GASTROINTESTINAL: Abdomen soft, non-tender, nondistended. MUSCULOSKELETAL: No cyanosis, or edema. Retroperitoneal drain in place BACK: Nontender without obvious deformity. No CVA tenderness. Results - Labs CBC & Chem 7: 10/21/18 05:27 10/21/18 05:27 - Procedures For drainage of lumbar/retroperitoneal abscess Assessment and Plan - Assessment (1) Sepsis Code(s): A41.9 - Sepsis, unspecified organism Status: Acute (2) Retroperitoneal fluid collection Code(s): R18.8 - Other ascites Status: Acute (3) Chest pain Code(s): R07.9 - Chest pain, unspecified Status: Acute - Plan sepsis/ L retroperitoneal and flank complex fluid collection - CT A/P noncontrast showing what appears to be possibly a large left retroperitoneal hemorrhage, however, given the interspersed fat along the superior lateral margin of this area there is concern for possible fat- containing mass such as liposarcoma and further evaluation with contrast- enhanced CT or MRI is recommended to exclude an enhancing mass. There is extension of the inflammatory changes identified within the left subcutaneous fatty tissues. This results in mild left-sided hydronephrosis without evidence of distal obstructing stone - CT A/P with contrast showed complex collection in the left retroperitoneal and flank musculature felt to be mostly like an abscess - s/p CT-guided drainage - fluid culture with MSSA. - Continue Ancef Per ID recommendations. - Pain control (Toradol with Dilaudid for breakthrough) counseled regarding narcotics. - Heating pads - Repeat CT abd/pelvis shows significant improvement of psoas abscess. - Will keep the drain for now. We might be able to d/c drain next week. Normocytic anemia. No gross bleeding - Slightly worse secondary to dilution. Hemodynamically stable per - Comparison of labs from prior visits in 2017 show this is new - She endorses some occasional BRBPR which she attributes to hemorrhoids - Anemia likely secondary to intraabdominal process with some associated (but not active) hemorrhage Polysubstance abuse - Patient admits to taking some non-prescribed methadone but denies any other drug use aside from her Lortab that's prescribed - UDS + for cocaine Hepatitis C, treatment naive - LFTs WNL - Avoid hepatotoxic agents Left lower quadrant pain We obtained pelvic ultrasound which was unremarkable. KUB shows constipation. continue to use bowel regimen as well as start Fleet enema if necessary. Yeast infection - one dose of Fluconazole 150mg given this morning. Full code. DVT prophylaxis: SCDs
[2018-10-27] MEDS: Temazepam 15 MG Capsule PO PRN (22:35)
[2018-10-28] MEDS: HYDROmorphone PF Inj 2 MG/ML Vial IV.PUSH PRN ×5 (03:43→20:30)
[2018-10-28] MEDS: Sod Chloride 0.9% Inj 1,000 ML IV.CONT SCH ×2 (03:44→20:31)
[2018-10-28] MEDS: ceFAZolin 2 GM Premix Inj 2 GM/50 ML PIGGYBACK IV.SIG SCH ×3 (05:14→20:29)
[2018-10-28] MEDS: Budesonide-Formoterol 160/4.5 MCG 6 GM Inhaler INH SCH ×2 (08:13→20:30)
[2018-10-28] MEDS: Senna/Docusate Sodium 8.6/50 MG Tablet PO SCH ×2 (08:13→20:30)
[2018-10-28] MEDS: Sodium Chloride 0.9% 2 ML Flush BID IV.FLUSH SCH ×2 (08:14→20:30)
--- NOTE | 2018-10-28 20:54 | P.PN ---
Subjective Interval history: ollow-up for left pelvis iliopsoas abscess, substance abuse. Patient is doing well. Psoas abscess drainage is slowing down. She reports vaginal discharge which is similar to the fluid in the drain. Physical Exam Vital signs: Vital Signs 10/28/18 00:00 10/28/18 04:00 10/28/18 08:00 Temperature 97.9 F 98 F 98.5 F Pulse Rate 78 83 54 L Respiratory Rate 16 17 18 Blood Pressure 99/55 L 112/64 126/66 Pulse Oximetry 97 96 97 10/28/18 12:00 10/28/18 16:00 10/28/18 20:00 Temperature 98.5 F 98.5 F 99.9 F H Pulse Rate 85 80 63 Respiratory Rate 18 18 16 Blood Pressure 93/50 L 131/62 124/68 Pulse Oximetry 97 97 96 Intake & Output 10/28/18 10/28/18 10/29/18 06:59 18:59 06:59 Intake Total 879 / 879 1010 / 1010 1000 / 1000 Output Total 700 / 700 Balance 179 / 179 1010 / 1010 1000 / 1000 Weight 75.4 kg Intake: IV 399 / 399 50 / 50 1000 / 1000 NS Inj 1,000 ML @ 60 mls/hr IV. 299 / 299 1000 / 1000 CONT .[id number] [facility] Rx#:[id number] Ancef 2 GM Premix Inj 2 gm In 100 / 100 50 / 50 50 ml @ 100 mls/hr IV.SIG Q8H [facility] Rx#:[id number] Oral 480 / 480 960 / 960 Output: Urine 700 / 700 Wound Drainage 0 / 0 Left Lateral Abdomen 0 / 0 Other: # Voids 10 4 Date of Last Bowel Movement 10/26/18 10/27/18 # Bowel Movements 1 0 Narrative: GENERAL: Alert, oriented x3, NAD. SKIN: Warm and dry. HEAD: Normocephalic. EYES: No scleral icterus. No injection or drainage. NECK: Supple, trachea midline. No JVD or lymphadenopathy. CARDIOVASCULAR: Regular rate and rhythm without murmurs, gallops, or rubs. RESPIRATORY: Breath sounds equal bilaterally. No accessory muscle use. GASTROINTESTINAL: Abdomen soft, non-tender, nondistended. MUSCULOSKELETAL: No cyanosis, or edema. Retroperitoneal drain in place BACK: Nontender without obvious deformity. No CVA tenderness. Results - Labs CBC & Chem 7: 10/21/18 05:27 10/21/18 05:27 - Imaging Chest X-Ray 10/15/18 08:38 CONCLUSION: Negative examination. Abdomen/Pelvis CT 10/15/18 08:41 CONCLUSION: 1. Abnormal exam with what appears to be possibly a large left retroperitoneal hemorrhage, however, given the interspersed fat along the superior lateral margin of this area there is concern for possible fat-containing mass such as liposarcoma and further evaluation with contrast-enhanced CT or MRI is recommended to exclude an enhancing mass. There is extension of the inflammatory changes identified within the left subcutaneous fatty tissues. This results in mild left-sided hydronephrosis without evidence of distal obstructing stone. Abdomen/Pelvis CT 10/15/18 10:15 CONCLUSION: Complex collection in the left retroperitoneal and flank musculature, felt most likely abscess. Percutaneous drainage under CT guidance does appear feasible Retroperitoneal Abscess Drainage 10/16/18 00:00 CONCLUSION: Uncomplicated CT guided drainage. Lumbar Spine MRI 10/18/18 00:00 CONCLUSION: 1. Left iliopsoas abscess partially visualized. Prior imaging shows this in better detail. 2. Abnormal signal extending from the left iliopsoas abscess towards and into the left L5 neural foramen consistent with phlegmon but no liquefaction to an abscess at this point. This may generate a left L5 radiculopathy. Abdomen X-Ray 10/24/18 00:00 CONCLUSION: Constipation Pelvis Ultrasound 10/24/18 00:00 CONCLUSION: Unremarkable sonographic appearance of the pelvis. Abdomen/Pelvis CT 10/25/18 00:00 CONCLUSION: 1. Significant interval improvement of the left iliopsoas collection/abscess status post drain placement. No significant fluid or air remains. Scattered inflammatory changes are still noted. 2. Interval slight improvement of the pelvicaliectasis on the left compared to previous examination. Minimal residual left lower pole perinephric streaking is noted. 3. Chronic extensive endplate sclerosis and erosive changes are noted at L4-5 level. - Procedures For drainage of lumbar/retroperitoneal abscess Assessment and Plan - Assessment (1) Sepsis Code(s): A41.9 - Sepsis, unspecified organism Status: Acute (2) Retroperitoneal fluid collection Code(s): R18.8 - Other ascites Status: Acute (3) Chest pain Code(s): R07.9 - Chest pain, unspecified Status: Acute - Plan sepsis/ L retroperitoneal and flank complex fluid collection - CT A/P noncontrast showing what appears to be possibly a large left retroperitoneal hemorrhage, however, given the interspersed fat along the superior lateral margin of this area there is concern for possible fat- containing mass such as liposarcoma and further evaluation with contrast- enhanced CT or MRI is recommended to exclude an enhancing mass. There is extension of the inflammatory changes identified within the left subcutaneous fatty tissues. This results in mild left-sided hydronephrosis without evidence of distal obstructing stone - CT A/P with contrast showed complex collection in the left retroperitoneal and flank musculature felt to be mostly like an abscess - s/p CT-guided drainage - fluid culture with MSSA. - Continue Ancef Per ID recommendations. - Pain control (Toradol with Dilaudid for breakthrough) counseled regarding narcotics. - Heating pads - Repeat CT abd/pelvis shows significant improvement of psoas abscess. Normocytic anemia. No gross bleeding - Slightly worse secondary to dilution. Hemodynamically stable per - Comparison of labs from prior visits in 2017 show this is new - She endorses some occasional BRBPR which she attributes to hemorrhoids - Anemia likely secondary to intraabdominal process with some associated (but not active) hemorrhage Polysubstance abuse - Patient admits to taking some non-prescribed methadone but denies any other drug use aside from her Lortab that's prescribed - UDS + for cocaine Left lower quadrant pain We obtained pelvic ultrasound which was unremarkable. KUB shows constipation. continue to use bowel regimen as well as start Fleet enema if necessary. Vaginal discharge - patient believes the discharge is similar to the fluid in the psoas abscess drain. -Will discuss with ID next week. CT abd/pelvis on 10/25/2018 did not show any fistula. Full code. DVT prophylaxis: SCDs
[2018-10-28] MEDS: Temazepam 15 MG Capsule PO PRN (22:27)
[2018-10-29] MEDS: HYDROmorphone PF Inj 2 MG/ML Vial IV.PUSH PRN ×6 (00:43→22:06)
[2018-10-29] MEDS: ceFAZolin 2 GM Premix Inj 2 GM/50 ML PIGGYBACK IV.SIG SCH ×3 (04:27→20:05)
[2018-10-29] MEDS: Sodium Chloride 0.9% 2 ML Flush BID IV.FLUSH SCH ×2 (08:14→20:04)
[2018-10-29] MEDS: Budesonide-Formoterol 160/4.5 MCG 6 GM Inhaler INH SCH ×2 (08:15→20:06)
[2018-10-29] MEDS: Senna/Docusate Sodium 8.6/50 MG Tablet PO SCH ×2 (08:15→20:05)
[2018-10-29] MEDS ORDERED: Magnesium Citrate Liq 300 ML Bottle PO ONE (10:28)
[2018-10-29] MEDS: Sod Chloride 0.9% Inj 1,000 ML IV.CONT SCH (12:46)
[2018-10-29] MEDS: Temazepam 15 MG Capsule PO PRN (22:06)
--- NOTE | 2018-10-29 23:41 | P.PN ---
Subjective Interval history: Follow-up for left pelvis iliopsoas abscess, substance abuse. Patient is doing well. Still complains of abdominal pain. She has not had a good BM yet. Afebrile. Physical Exam Vital signs: Vital Signs 10/29/18 00:00 10/29/18 04:00 10/29/18 08:00 Temperature 98.6 F 98.4 F 98 F Pulse Rate 72 59 L 60 Respiratory Rate 16 16 18 Blood Pressure 109/56 L 122/58 L 114/60 Pulse Oximetry 95 96 98 10/29/18 12:00 10/29/18 13:16 10/29/18 16:00 Temperature 97.7 F 98.5 F Pulse Rate 61 89 Respiratory Rate 18 18 Blood Pressure 116/73 137/84 Pulse Oximetry 98 98 97 10/29/18 20:00 Temperature 98.4 F Pulse Rate 73 Respiratory Rate 18 Blood Pressure 112/60 Pulse Oximetry 95 Intake & Output 10/29/18 10/29/18 10/30/18 06:59 18:59 06:59 Intake Total 1100 / 1100 2009 50 / 50 Output Total 600 / 600 Balance 500 / 500 2009 50 / 50 Weight 75.4 kg Intake: IV 1100 / 1100 1050 / 1050 50 / 50 NS Inj 1,000 ML @ 60 mls/hr IV. 1000 / 1000 1000 / 1000 CONT .[id number] [facility] Rx#:[id number] Ancef 2 GM Premix Inj 2 gm In 100 / 100 50 / 50 50 / 50 50 ml @ 100 mls/hr IV.SIG Q8H [facility] Rx#:[id number] Oral 960 / 960 Output: Urine 600 / 600 Other: # Voids 4 Date of Last Bowel Movement 10/27/18 # Bowel Movements 1 Narrative: GENERAL: Alert, oriented x3, NAD. SKIN: Warm and dry. HEAD: Normocephalic. EYES: No scleral icterus. No injection or drainage. NECK: Supple, trachea midline. No JVD or lymphadenopathy. CARDIOVASCULAR: Regular rate and rhythm without murmurs, gallops, or rubs. RESPIRATORY: Breath sounds equal bilaterally. No accessory muscle use. GASTROINTESTINAL: Abdomen soft, non-tender, nondistended. MUSCULOSKELETAL: No cyanosis, or edema. Retroperitoneal drain in place BACK: Nontender without obvious deformity. No CVA tenderness. Results - Labs CBC & Chem 7: 10/21/18 05:27 10/21/18 05:27 - Procedures For drainage of lumbar/retroperitoneal abscess Assessment and Plan - Assessment (1) Sepsis Code(s): A41.9 - Sepsis, unspecified organism Status: Acute (2) Retroperitoneal fluid collection Code(s): R18.8 - Other ascites Status: Acute (3) Chest pain Code(s): R07.9 - Chest pain, unspecified Status: Acute - Plan sepsis/ L retroperitoneal and flank complex fluid collection - CT A/P noncontrast showing what appears to be possibly a large left retroperitoneal hemorrhage, however, given the interspersed fat along the superior lateral margin of this area there is concern for possible fat- containing mass such as liposarcoma and further evaluation with contrast- enhanced CT or MRI is recommended to exclude an enhancing mass. There is extension of the inflammatory changes identified within the left subcutaneous fatty tissues. This results in mild left-sided hydronephrosis without evidence of distal obstructing stone - CT A/P with contrast showed complex collection in the left retroperitoneal and flank musculature felt to be mostly like an abscess - s/p CT-guided drainage - fluid culture with MSSA. - Continue Ancef Per ID recommendations. - Pain control (Toradol with Dilaudid for breakthrough) counseled regarding narcotics. - Heating pads - Repeat CT abd/pelvis shows significant improvement of psoas abscess. Normocytic anemia. No gross bleeding - Slightly worse secondary to dilution. Hemodynamically stable per - Comparison of labs from prior visits in 2017 show this is new - She endorses some occasional BRBPR which she attributes to hemorrhoids - Anemia likely secondary to intraabdominal process with some associated (but not active) hemorrhage Polysubstance abuse - Patient admits to taking some non-prescribed methadone but denies any other drug use aside from her Lortab that's prescribed - UDS + for cocaine Left lower quadrant pain We obtained pelvic ultrasound which was unremarkable. KUB shows constipation. continue to use bowel regimen as well as start Fleet enema if necessary. Vaginal discharge - Happens when she is having a bowel movements. Concerning for colo-vesicular fistula. -Will discuss with ID next week. CT abd/pelvis on 10/25/2018 did not show any fistula. Full code. DVT prophylaxis: SCDs
[2018-10-30] MEDS: HYDROmorphone PF Inj 2 MG/ML Vial IV.PUSH PRN ×5 (02:07→19:17)
[2018-10-30] MEDS: ceFAZolin 2 GM Premix Inj 2 GM/50 ML PIGGYBACK IV.SIG SCH ×3 (05:54→20:32)
[2018-10-30] MEDS: Sod Chloride 0.9% Inj 1,000 ML IV.CONT SCH ×2 (05:55→22:04)
[2018-10-30] MEDS: Senna/Docusate Sodium 8.6/50 MG Tablet PO SCH ×2 (08:34→20:34)
[2018-10-30] MEDS: Budesonide-Formoterol 160/4.5 MCG 6 GM Inhaler INH SCH ×2 (08:36→20:34)
[2018-10-30] MEDS: Sodium Chloride 0.9% 2 ML Flush BID IV.FLUSH SCH ×2 (08:37→20:33)
--- NOTE | 2018-10-30 13:16 | P.PNID ---
Subjective Remarks: Patient is a 43-year-old female, presented to the hospital for further evaluation of 3-week history of worsening left flank pain and left-sided abdominal pain. Patient stated that back in June she is started having pain in her back and in the left flank area. She went to the emergency room, and was told that she has degenerative disease in the disc and she was discharged. The pain eventually got better but the pain started going down her left lower extremity. She also had noted that her leg was swollen. The swelling gradually improve over time, and she has had problem ambulating. The last 3 weeks the pain in her back came back and this time it was also radiating to the left side of her abdomen. Was progressively worsening. She was having some fevers and chills. She denies any urinary retention or incontinence, and no stool incontinence. Patient has a remote history of IV drug use, but has used cocaine in other ways. She presented back to the hospital, and imaging study is showing a complex fluid collection in the retroperitoneal area. She has had some low-grade fevers. Her WBC is 13,000. Urinalysis okay. Infectious disease consultation has been requested to assist with evaluation and treatment. Patient is currently on n.p.o. There is an IR consult to do a diagnostic tap of the fluid collection, possibly drainage. Notes reviewed Temps ok Drain in place - output lower C/O lower abdominal pain and R flank pain Noted vaginal discharge after BM Voiding ok Lumbar spine MRI, no discitis Repeat CT with decreased size fluid collection BC negative ESR 87 CRP 7.37 ALLERGY to PCN, but TOLERATES CEPHALOSPORINS No rash or itching Antibiotics: Ancef Past Medical History: Endometriosis History of intravenous drug abuse Substance abuse Hepatitis C History of hand surgery Hx of cholecystectomy Allergies/Adverse Reactions: Allergies morphine Allergy (Severe, Verified 10/15/18 08:28) HIVES-SOB penicillin G Allergy (Severe, Verified 10/15/18 08:28) SWELLING Sulfa (Sulfonamide Antibiotics) Allergy (Severe, Verified 10/15/18 08:28) SWELLING gabapentin Allergy (Verified 10/15/18 08:28) Weight Gain Objective Vital Signs 10/29/18 13:16 10/29/18 16:00 10/29/18 20:00 Temperature 98.5 F 98.4 F Pulse Rate 89 73 Respiratory Rate 18 18 Blood Pressure 137/84 112/60 Pulse Oximetry 98 97 95 10/30/18 00:00 10/30/18 04:00 Temperature 97.9 F 97.9 F Pulse Rate 70 72 Respiratory Rate 18 18 Blood Pressure 102/74 115/83 Pulse Oximetry 95 98 Intake & Output 10/29/18 10/30/18 10/30/18 18:59 06:59 18:59 Intake Total 2009 1780 / 1780 Output Total 1999 Balance 2009 -220 / -220 Intake: IV 1050 / 1050 1100 / 1100 NS Inj 1,000 ML @ 60 mls/hr IV. 1000 / 1000 1000 / 1000 CONT .[id number] [facility] Rx#:[id number] Ancef 2 GM Premix Inj 2 gm In 50 / 50 100 / 100 50 ml @ 100 mls/hr IV.SIG Q8H [facility] Rx#:[id number] Oral 960 / 960 680 / 680 Output: Urine 1999 Other: # Voids 4 Date of Last Bowel Movement 10/27/18 # Bowel Movements 1 Imaging: ITS Impressions Chest X-Ray 10/15/18 08:38 CONCLUSION: Negative examination. Retroperitoneal Abscess Drainage 10/16/18 00:00 CONCLUSION: Uncomplicated CT guided drainage. Lumbar Spine MRI 10/18/18 00:00 CONCLUSION: 1. Left iliopsoas abscess partially visualized. Prior imaging shows this in better detail. 2. Abnormal signal extending from the left iliopsoas abscess towards and into the left L5 neural foramen consistent with phlegmon but no liquefaction to an abscess at this point. This may generate a left L5 radiculopathy. Abdomen X-Ray 10/24/18 00:00 CONCLUSION: Constipation Pelvis Ultrasound 10/24/18 00:00 CONCLUSION: Unremarkable sonographic appearance of the pelvis. Abdomen/Pelvis CT 10/25/18 00:00 CONCLUSION: 1. Significant interval improvement of the left iliopsoas collection/abscess status post drain placement. No significant fluid or air remains. Scattered inflammatory changes are still noted. 2. Interval slight improvement of the pelvicaliectasis on the left compared to previous examination. Minimal residual left lower pole perinephric streaking is noted. 3. Chronic extensive endplate sclerosis and erosive changes are noted at L4-5 level. Physical Exam: GENERAL: awake and alert, NAD. SKIN: Cool and dry. No generalized rash EYES: [place] conjunctiva. No petechia or hemorrhage. No scleral icterus. No injection or drainage. EARS, NOSE AND THROAT: Mucous membranes pink and moist. No oral lesions noted. No exudate. No oral thrush. NECK: Trachea midline. Supple and not tender, no meningeal signs CARDIOVASCULAR: Regular rate and rhythm. No murmurs, rubs or gallops heard RESPIRATORY: Clear to auscultation. Breath sounds equal bilaterally. No rales , wheezing or rhonchi ABDOMEN: Soft, nondistended. Tender in suprapubic region. Bowel sounds present and normoactive. Drain in place - bloody fluid EXTREMITIES: No clubbing, cyanosis, or edema. No joint effusion, has good ROM. No calf tenderness. NEUROLOGICAL: non-focal PSYCHIATRIC: Normal affect, calm and cooperative. LINE: No evidence of infection Introitus - no vaginal discharge noted, no redness or swelling Assessment and Plan - Plan Impression L retroperitoneal and flank complex fluid collection ?old Lumbar discitis on CT - MRI ok Admits to remote IVDU, has been using cocaine but not IV Allergy to PCN, has tolerated cephalosporins Pelvic pain, ?vaginal discharge, etiology? Recommendation Continue Ancef Follow temps Monitor progress UA, C/S Consider getting gyne evaluation D/W Dr Bird ([facility]) Explained plan to the patient
[2018-10-30 20:09] LABS: Bilirubin,Urine Negative (Negative); Clarity,Urine Clear (Clear); Color,Urine Straw (Yellw/Straw); Glucose,Urine (UA) Negative (Negative); Hyaline Casts,Urine 1 /lpf (0-3); Leukocyte Esterase,Urine Negative (Negative); Nitrite,Urine Negative (Negative); Squamous Epithelial Cell,Urine 4 /hpf (0-5)
[2018-10-30] MEDS: Temazepam 15 MG Capsule PO PRN (22:02)
--- NOTE | 2018-10-30 22:06 | P.PN ---
Subjective Interval history: Follow-up for left pelvis iliopsoas abscess, substance abuse. Patient is doing well. However, she complains of vaginal discharge, primarily when she has BM. Additionally, she complains right flank area pain which she reports similar to her pain on the left side before she was diagnosed with psoas abscess. No fever , chills. Physical Exam Vital signs: Vital Signs 10/30/18 00:00 10/30/18 04:00 10/30/18 08:00 Temperature 97.9 F 97.9 F 98.2 F Pulse Rate 70 72 71 Respiratory Rate 18 18 18 Blood Pressure 102/74 115/83 119/68 Pulse Oximetry 95 98 96 10/30/18 12:00 10/30/18 16:00 10/30/18 20:00 Temperature 98.3 F 98.4 F 98.7 F Pulse Rate 67 68 76 Respiratory Rate 18 18 15 Blood Pressure 112/72 113/66 101/64 Pulse Oximetry 96 98 97 Intake & Output 10/30/18 10/30/18 10/31/18 06:59 18:59 06:59 Intake Total 1780 / 1780 530 / 530 50 / 50 Output Total 1999 Balance -220 / -220 518 / 518 50 / 50 Intake: IV 1100 / 1100 50 / 50 50 / 50 NS Inj 1,000 ML @ 60 mls/hr IV. 1000 / 1000 CONT .[id number] [facility] Rx#:[id number] Ancef 2 GM Premix Inj 2 gm In 100 / 100 50 / 50 50 / 50 50 ml @ 100 mls/hr IV.SIG Q8H [facility] Rx#:[id number] Oral 680 / 680 480 / 480 Output: Urine 1999 Wound Drainage Left Lateral Abdomen Other: # Voids 5 Date of Last Bowel Movement 10/27/18 10/27/18 Narrative: GENERAL: Alert, oriented x3, NAD. SKIN: Warm and dry. HEAD: Normocephalic. EYES: No scleral icterus. No injection or drainage. NECK: Supple, trachea midline. No JVD or lymphadenopathy. CARDIOVASCULAR: Regular rate and rhythm without murmurs, gallops, or rubs. RESPIRATORY: Breath sounds equal bilaterally. No accessory muscle use. GASTROINTESTINAL: Abdomen soft, non-tender, nondistended. MUSCULOSKELETAL: No cyanosis, or edema. Retroperitoneal drain in place BACK: Nontender without obvious deformity. Complains of right flank area tenderness on palpation. Results - Labs CBC & Chem 7: 10/21/18 05:27 10/21/18 05:27 Laboratory Results - last 24 hr 10/30/18 16:30 Urine Color Straw Urine Clarity Clear Urine pH 8.0 Ur Specific [place] 1.010 Urine Protein Negative Urine Glucose (UA) Negative Urine Ketones Negative Urine Occult Blood Negative Urine Nitrate Negative Urine Bilirubin Negative Urine Urobilinogen Less than 2 Ur Leukocyte Esterase Negative Urine RBC Less than 1 Urine WBC Less than 1 Ur Squamous Epith Cells 4 Hyaline Casts 1 Micro UA Comment Culture not ind Ur Microscopic Review Not Reportable Urine Culture Comments Culture not ind - Procedures For drainage of lumbar/retroperitoneal abscess Assessment and Plan - Assessment (1) Sepsis Code(s): A41.9 - Sepsis, unspecified organism Status: Acute (2) Retroperitoneal fluid collection Code(s): R18.8 - Other ascites Status: Acute (3) Chest pain Code(s): R07.9 - Chest pain, unspecified Status: Acute - Plan sepsis/ L retroperitoneal and flank complex fluid collection - CT A/P noncontrast showing what appears to be possibly a large left retroperitoneal hemorrhage, however, given the interspersed fat along the superior lateral margin of this area there is concern for possible fat- containing mass such as liposarcoma and further evaluation with contrast- enhanced CT or MRI is recommended to exclude an enhancing mass. There is extension of the inflammatory changes identified within the left subcutaneous fatty tissues. This results in mild left-sided hydronephrosis without evidence of distal obstructing stone - CT A/P with contrast showed complex collection in the left retroperitoneal and flank musculature felt to be mostly like an abscess - s/p CT-guided drainage - fluid culture with MSSA. - Continue Ancef Per ID recommendations. - Pain control (Toradol with Dilaudid for breakthrough) counseled regarding narcotics. - Heating pads - Repeat CT abd/pelvis shows significant improvement of psoas abscess. Right flank area pain -Concerning for a second abscess. -May consider Ultrasound study first. Will discuss with radiology - either US or perhaps MRI. Normocytic anemia. No gross bleeding - Slightly worse secondary to dilution. Hemodynamically stable per - Comparison of labs from prior visits in 2017 show this is new - She endorses some occasional BRBPR which she attributes to hemorrhoids - Anemia likely secondary to intraabdominal process with some associated (but not active) hemorrhage Polysubstance abuse - Patient admits to taking some non-prescribed methadone but denies any other drug use aside from her Lortab that's prescribed - UDS + for cocaine Left lower quadrant pain We obtained pelvic ultrasound which was unremarkable. KUB shows constipation. continue to use bowel regimen as well as start Fleet enema if necessary. Vaginal discharge - Happens when she is having a bowel movements. Concerning for colo-vesicular fistula. - Discussed with ID. Will obtain a Gynecological consult for an eval. Full code. DVT prophylaxis: SCDs
[2018-10-31] MEDS: HYDROmorphone PF Inj 2 MG/ML Vial IV.PUSH PRN ×6 (00:07→23:07)
[2018-10-31] MEDS: ceFAZolin 2 GM Premix Inj 2 GM/50 ML PIGGYBACK IV.SIG SCH ×3 (05:52→20:41)
[2018-10-31] MEDS: Senna/Docusate Sodium 8.6/50 MG Tablet PO SCH ×2 (09:01→20:41)
[2018-10-31] MEDS: Sodium Chloride 0.9% 2 ML Flush BID IV.FLUSH SCH ×2 (09:01→22:29)
[2018-10-31] MEDS: Budesonide-Formoterol 160/4.5 MCG 6 GM Inhaler INH SCH ×2 (09:02→22:29)
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
[2018-10-31] MEDS ORDERED: Fluconazole 100 MG Tablet PO ONE (11:00)
--- NOTE | 2018-10-31 11:53 | US ---
EXAM DATE: 10/24/2018 11:36 AM EST AGE/SEX: 43 years / Female INDICATIONS: Pain. CLINICAL DATA: This is the patient's initial encounter. Patient reports that signs and symptoms have been present for 1 week and indicates a pain score of 5/10. MEDICAL/SURGICAL HISTORY: . . Endometriosis. Hepatitis C. Intravenous drug abuse. Subst ance abuse. Cholecystectomy. Hand surgery. COMPARISON: [facility] – [place], CT ABDOMEN & PELVIS W CONTRAST, 10/15/2018. . MEASUREMENTS: Uterus:__7.9 x 5.0 x 3.7 cm Endometrial Stripe:__4 mm Right Ovary:__ 3.9 x 2.6 x 1.8 cm Left Ovary:__ 4.1 x 3.5 x 1.3 cm FINDINGS: Uterus: Occasional parenchymal calcifications. Endometrial Stripe: The endometrial stripe displays homogeneous echotexture. Right Ovary: Ovary contains no mass or significant cystic lesion. Left Ovary: Ovary contains no mass or significant cystic lesion. Fluid: Trace free fluid. Other: None. CONCLUSION: Unremarkable sonographic appearance of the pelvis. Electronically signed by: Ronan Sauer MD 10/24/2018 11:44 AM EST
--- NOTE | 2018-10-31 13:43 | P.PN ---
Subjective Interval history: Follow-up for left pelvis iliopsoas abscess, substance abuse. Patient is resting in bed. She reports improvement of her right flank area pain. No fever or chills. Physical Exam Vital signs: Vital Signs 10/30/18 16:00 10/30/18 20:00 10/30/18 20:10 Temperature 98.4 F 98.7 F Pulse Rate 68 76 Respiratory Rate 18 15 Blood Pressure 113/66 101/64 Pulse Oximetry 98 97 94 L 10/30/18 23:45 10/31/18 04:00 10/31/18 08:00 Temperature 98.5 F 97.9 F 97.8 F Pulse Rate 73 78 59 L Respiratory Rate 15 14 18 Blood Pressure 93/64 L 102/70 94/53 L Pulse Oximetry 96 97 97 10/31/18 12:00 Temperature 97.9 F Pulse Rate 70 Respiratory Rate 18 Blood Pressure 104/56 L Pulse Oximetry 96 Intake & Output 10/30/18 10/31/18 10/31/18 18:59 06:59 18:59 Intake Total 530 / 530 639 / 639 50 / 50 Output Total 600 / 600 Balance 518 / 518 39 / 39 50 / 50 Weight 76.5 kg Intake: IV 50 / 50 399 / 399 50 / 50 NS Inj 1,000 ML @ 60 mls/hr IV. 299 / 299 CONT .[id number] [facility] Rx#:[id number] Ancef 2 GM Premix Inj 2 gm In 50 / 50 100 / 100 50 / 50 50 ml @ 100 mls/hr IV.SIG Q8H [facility] Rx#:[id number] Oral 480 / 480 240 / 240 Output: Urine 600 / 600 Wound Drainage Left Lateral Abdomen Other: # Voids 5 Date of Last Bowel Movement 10/27/18 10/27/18 Narrative: GENERAL: Alert, oriented x3, NAD. SKIN: Warm and dry. HEAD: Normocephalic. EYES: No scleral icterus. No injection or drainage. NECK: Supple, trachea midline. No JVD or lymphadenopathy. CARDIOVASCULAR: Regular rate and rhythm without murmurs, gallops, or rubs. RESPIRATORY: Breath sounds equal bilaterally. No accessory muscle use. GASTROINTESTINAL: Abdomen soft, non-tender, nondistended. MUSCULOSKELETAL: No cyanosis, or edema. Retroperitoneal drain in place BACK: Nontender without obvious deformity. Results - Labs CBC & Chem 7: 10/21/18 05:27 10/21/18 05:27 Laboratory Results - last 24 hr 10/30/18 10/31/18 10/31/18 16:30 09:10 11:00 Urine Color Straw Urine Clarity Clear Urine pH 8.0 Ur Specific [place] 1.010 Urine Protein Negative Urine Glucose (UA) Negative Urine Ketones Negative Urine Occult Blood Negative Urine Nitrate Negative Urine Bilirubin Negative Urine Urobilinogen Less than 2 Ur Leukocyte Esterase Negative Urine RBC Less than 1 Urine WBC Less than 1 Ur Squamous Epith Cells 4 Hyaline Casts 1 Micro UA Comment Culture not ind Ur Microscopic Review Not Reportable Urine Culture Comments Culture not ind Clue Cells (Wet Prep) None seen Trichomonas (Wet Prep) None seen Yeast (Wet Prep) Present H Chlam trachomat DNA PCR Not detected N.gonorrhoeae DNA (PCR) Not detected - Imaging Impressions Abdomen/Pelvis/Transvag US 10/24/18 00:00 CONCLUSION: Unremarkable sonographic appearance of the pelvis. - Procedures For drainage of lumbar/retroperitoneal abscess Assessment and Plan - Assessment (1) Sepsis Code(s): A41.9 - Sepsis, unspecified organism Status: Acute (2) Retroperitoneal fluid collection Code(s): R18.8 - Other ascites Status: Acute (3) Chest pain Code(s): R07.9 - Chest pain, unspecified Status: Acute - Plan sepsis/ L retroperitoneal and flank complex fluid collection - CT A/P noncontrast showing what appears to be possibly a large left retroperitoneal hemorrhage, however, given the interspersed fat along the superior lateral margin of this area there is concern for possible fat- containing mass such as liposarcoma and further evaluation with contrast- enhanced CT or MRI is recommended to exclude an enhancing mass. There is extension of the inflammatory changes identified within the left subcutaneous fatty tissues. This results in mild left-sided hydronephrosis without evidence of distal obstructing stone - CT A/P with contrast showed complex collection in the left retroperitoneal and flank musculature felt to be mostly like an abscess - s/p CT-guided drainage - fluid culture with MSSA. - Continue Ancef Per ID recommendations. - Pain control (Toradol with Dilaudid for breakthrough) counseled regarding narcotics. - Heating pads - Repeat CT abd/pelvis shows significant improvement of psoas abscess. Right flank area pain -Symptoms improving. -If symptoms persist or worsen, will consider CT abdomen pelvis again to look for any additional abscess. Discussed with infectious disease on 10/31/2018. Polysubstance abuse - Patient admits to taking some non-prescribed methadone but denies any other drug use aside from her Lortab that's prescribed - UDS + for cocaine Left lower quadrant pain We obtained pelvic ultrasound which was unremarkable. KUB shows constipation. continue to use bowel regimen as well as start Fleet enema if necessary. Vaginal discharge - Happens when she is having a bowel movements. We appreciate gynecological evaluation. Cup Setter Lockstitch recommend no further workup at this point. Wet prep pending. Full code. DVT prophylaxis: JOSE As
[2018-10-31] MEDS: Sod Chloride 0.9% Inj 1,000 ML IV.CONT SCH (15:26)
[2018-10-31] MEDS: Temazepam 15 MG Capsule PO PRN (23:08)
[2018-11-01] MEDS: HYDROmorphone PF Inj 2 MG/ML Vial IV.PUSH PRN ×5 (04:24→20:38)
[2018-11-01] MEDS: ceFAZolin 2 GM Premix Inj 2 GM/50 ML PIGGYBACK IV.SIG SCH ×3 (04:26→20:37)
[2018-11-01] MEDS: Senna/Docusate Sodium 8.6/50 MG Tablet PO SCH ×2 (08:31→20:37)
[2018-11-01] MEDS: Sod Chloride 0.9% Inj 1,000 ML IV.CONT SCH (08:34)
[2018-11-01] MEDS: Budesonide-Formoterol 160/4.5 MCG 6 GM Inhaler INH SCH ×2 (08:37→20:37)
[2018-11-01] MEDS: Sodium Chloride 0.9% 2 ML Flush BID IV.FLUSH SCH ×2 (08:37→20:39)
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
--- NOTE | 2018-11-01 09:56 | P.PNID ---
Subjective Remarks: Patient is a 43-year-old female, presented to the hospital for further evaluation of 3-week history of worsening left flank pain and left-sided abdominal pain. Patient stated that back in June she is started having pain in her back and in the left flank area. She went to the emergency room, and was told that she has degenerative disease in the disc and she was discharged. The pain eventually got better but the pain started going down her left lower extremity. She also had noted that her leg was swollen. The swelling gradually improve over time, and she has had problem ambulating. The last 3 weeks the pain in her back came back and this time it was also radiating to the left side of her abdomen. Was progressively worsening. She was having some fevers and chills. She denies any urinary retention or incontinence, and no stool incontinence. Patient has a remote history of IV drug use, but has used cocaine in other ways. She presented back to the hospital, and imaging study is showing a complex fluid collection in the retroperitoneal area. She has had some low-grade fevers. Her WBC is 13,000. Urinalysis okay. Infectious disease consultation has been requested to assist with evaluation and treatment. Patient is currently on n.p.o. There is an IR consult to do a diagnostic tap of the fluid collection, possibly drainage. Notes reviewed Temps ok Drain in place - output lower R flank pain better Gynecology evaluation noted UA ok Voiding ok Lumbar spine MRI, no discitis Repeat CT with decreased size fluid collection BC negative ESR 87 CRP 7.37 ALLERGY to PCN, but TOLERATES CEPHALOSPORINS No rash or itching Antibiotics: Ancef Past Medical History: Endometriosis History of intravenous drug abuse Substance abuse Hepatitis C History of hand surgery Hx of cholecystectomy Allergies/Adverse Reactions: Allergies morphine Allergy (Severe, Verified 10/15/18 08:28) HIVES-SOB penicillin G Allergy (Severe, Verified 10/15/18 08:28) SWELLING Sulfa (Sulfonamide Antibiotics) Allergy (Severe, Verified 10/15/18 08:28) SWELLING gabapentin Allergy (Verified 10/15/18 08:28) Weight Gain Objective Vital Signs 10/31/18 12:00 10/31/18 16:00 10/31/18 17:29 Temperature 97.9 F 97.8 F Pulse Rate 70 74 Respiratory Rate 18 18 Blood Pressure 104/56 L 104/61 Pulse Oximetry 96 97 96 10/31/18 20:00 11/01/18 00:00 11/01/18 04:00 Temperature 98 F 97.8 F 97.4 F L Pulse Rate 70 68 77 Respiratory Rate 18 18 18 Blood Pressure 100/58 L 121/57 L 115/55 L Pulse Oximetry 96 96 96 11/01/18 08:00 11/01/18 08:58 Temperature 98.4 F Pulse Rate 69 Respiratory Rate 16 Blood Pressure 129/73 Pulse Oximetry 99 96 Intake & Output 10/31/18 11/01/18 11/01/18 18:59 06:59 18:59 Intake Total 1530 / 1530 220 / 220 299 / 299 Balance 1530 / 1530 220 / 220 299 / 299 Weight 76.6 kg Intake: IV 1050 / 1050 100 / 100 299 / 299 NS Inj 1,000 ML @ 60 mls/hr IV. 1000 / 1000 299 / 299 CONT .[id number] [facility] Rx#:[id number] Ancef 2 GM Premix Inj 2 gm In 50 / 50 100 / 100 50 ml @ 100 mls/hr IV.SIG Q8H [facility] Rx#:[id number] Oral 480 / 480 120 / 120 Other: # Voids 3 1 Date of Last Bowel Movement 10/27/18 Imaging: ITS Impressions Chest X-Ray 10/15/18 08:38 CONCLUSION: Negative examination. Retroperitoneal Abscess Drainage 10/16/18 00:00 CONCLUSION: Uncomplicated CT guided drainage. Lumbar Spine MRI 10/18/18 00:00 CONCLUSION: 1. Left iliopsoas abscess partially visualized. Prior imaging shows this in better detail. 2. Abnormal signal extending from the left iliopsoas abscess towards and into the left L5 neural foramen consistent with phlegmon but no liquefaction to an abscess at this point. This may generate a left L5 radiculopathy. Abdomen X-Ray 10/24/18 00:00 CONCLUSION: Constipation Abdomen/Pelvis/Transvag US 10/24/18 00:00 CONCLUSION: Unremarkable sonographic appearance of the pelvis. Abdomen/Pelvis CT 10/25/18 00:00 CONCLUSION: 1. Significant interval improvement of the left iliopsoas collection/abscess status post drain placement. No significant fluid or air remains. Scattered inflammatory changes are still noted. 2. Interval slight improvement of the pelvicaliectasis on the left compared to previous examination. Minimal residual left lower pole perinephric streaking is noted. 3. Chronic extensive endplate sclerosis and erosive changes are noted at L4-5 level. Physical Exam: GENERAL: awake and alert, NAD. SKIN: Cool and dry. No generalized rash EYES: [place] conjunctiva. No petechia or hemorrhage. No scleral icterus. No injection or drainage. EARS, NOSE AND THROAT: Mucous membranes pink and moist. No oral lesions noted. No exudate. No oral thrush. NECK: Trachea midline. Supple and not tender, no meningeal signs CARDIOVASCULAR: Regular rate and rhythm. No murmurs, rubs or gallops heard RESPIRATORY: Clear to auscultation. Breath sounds equal bilaterally. No rales , wheezing or rhonchi ABDOMEN: Soft, nondistended. Tender in suprapubic region. Bowel sounds present and normoactive. Drain in place - bloody fluid EXTREMITIES: No clubbing, cyanosis, or edema. No joint effusion, has good ROM. No calf tenderness. NEUROLOGICAL: non-focal PSYCHIATRIC: Normal affect, calm and cooperative. LINE: No evidence of infection Introitus - no vaginal discharge noted, no redness or swelling Assessment and Plan - Plan Impression L retroperitoneal and flank complex fluid collection ?old Lumbar discitis on CT - MRI ok Admits to remote IVDU, has been using cocaine but not IV Allergy to PCN, has tolerated cephalosporins Pelvic pain, ?vaginal discharge, etiology? - gyne exam negative Recommendation Continue Ancef Follow temps Monitor progress Repeat ESR and CRP Labs weekly while on IV Abx: CBC, creatinine
--- NOTE | 2018-11-01 12:13 | CT ---
EXAM DATE: 11/01/2018 12:05 PM EST AGE/SEX: 43 years / Female INDICATIONS: Patient complains of right flank pain. Evaluate drain CLINICAL DATA: This is the patient's initial encounter. Patient reports that signs and symptoms have been present for 1 day and indicates a pain score of 5/10. MEDICAL/SURGICAL HISTORY: Hepatitis C. Cholecystectomy. RADIATION DOSE: 11.41 CTDI (mGy) COMPARISON: [facility] [place], CT ABDOMEN & PELVIS W/O CONTRAST, 10/25/2018. . TECHNIQUE: Multiple contiguous axial images were obtained through the abdomen. Images were obtained using multiple row detector helical technique. Using automated exposure control and adjustment of the mA and/or kV according to patient size, radiation dose was kept as low as reasonably achievable to o btain optimal diagnostic quality images. DICOM format image data is available electronically for rev iew and comparison. FINDINGS: Drain remains in the iliopsoas as on the left with no residual fluid remaining. Lung bases are clear Liver, spleen, pancreas adrenals unremarkable. Mild prominence to both collecting systems, stable in the interval. The perinephric stranding about the lower pole the right kidney has all but resolved. In the pelvis there are no new fluid collections evident. Significant in place sclerosis is seen at L4-5. CONCLUSION: 1. No residual fluid collection from the iliopsoas drain on the left. 2. Overall interval improvement. Electronically signed by: Jemal Carroll MD 11/01/2018 12:12 PM EST
--- NOTE | 2018-11-01 15:26 | P.PN ---
Subjective Interval history: Follow-up for left pelvis iliopsoas abscess, substance abuse. Some pain in her right flank area. No fever or chills. No n/v/d/c. Eating fairly well. Physical Exam Vital signs: Vital Signs 10/31/18 16:00 10/31/18 17:29 10/31/18 20:00 Temperature 97.8 F 98 F Pulse Rate 74 70 Respiratory Rate 18 18 Blood Pressure 104/61 100/58 L Pulse Oximetry 97 96 96 11/01/18 00:00 11/01/18 04:00 11/01/18 08:00 Temperature 97.8 F 97.4 F L 98.4 F Pulse Rate 68 77 69 Respiratory Rate 18 18 16 Blood Pressure 121/57 L 115/55 L 129/73 Pulse Oximetry 96 96 99 11/01/18 08:58 11/01/18 12:00 Temperature 97.8 F Pulse Rate 68 Respiratory Rate 20 Blood Pressure 136/74 Pulse Oximetry 96 98 Intake & Output 10/31/18 11/01/18 11/01/18 18:59 06:59 18:59 Intake Total 1530 / 1530 220 / 220 399 / 399 Balance 1530 / 1530 220 / 220 399 / 399 Weight 76.6 kg Intake: IV 1050 / 1050 100 / 100 399 / 399 NS Inj 1,000 ML @ 60 mls/hr IV. 1000 / 1000 299 / 299 CONT .[id number] COLLEEN Rx#:[id number] Ancef 2 GM Premix Inj 2 gm In 50 / 50 100 / 100 100 / 100 50 ml @ 100 mls/hr IV.SIG Q8H COLLEEN Rx#:[id number] Oral 480 / 480 120 / 120 Other: # Voids 3 1 Date of Last Bowel Movement 10/27/18 Narrative: GENERAL: Alert, oriented x3, appears in NAD. CARDIOVASCULAR: Regular rate and rhythm without murmurs, gallops, or rubs. RESPIRATORY: Breath sounds equal bilaterally. No accessory muscle use. GASTROINTESTINAL: Abdomen soft, non-tender, nondistended. MUSCULOSKELETAL: No cyanosis, or edema. Retroperitoneal drain in place. Results - Labs CBC & Chem 7: 10/21/18 05:27 10/21/18 05:27 - Imaging Impressions Abdomen/Pelvis CT 11/01/18 00:00 CONCLUSION: 1. No residual fluid collection from the iliopsoas drain on the left. 2. Overall interval improvement. - Procedures For drainage of lumbar/retroperitoneal abscess Assessment and Plan - Assessment (1) Sepsis Code(s): A41.9 - Sepsis, unspecified organism Status: Acute (2) Retroperitoneal fluid collection Code(s): R18.8 - Other ascites Status: Acute (3) Chest pain Code(s): R07.9 - Chest pain, unspecified Status: Acute - Plan Sepsis/ L retroperitoneal and flank complex fluid collection - CT A/P noncontrast showing what appears to be possibly a large left retroperitoneal hemorrhage, however, given the interspersed fat along the superior lateral margin of this area there is concern for possible fat- containing mass such as liposarcoma and further evaluation with contrast- enhanced CT or MRI is recommended to exclude an enhancing mass. There is extension of the inflammatory changes identified within the left subcutaneous fatty tissues. This results in mild left-sided hydronephrosis without evidence of distal obstructing stone - CT A/P with contrast showed complex collection in the left retroperitoneal and flank musculature felt to be mostly like an abscess - s/p CT-guided drainage - fluid culture with MSSA. - Continue Ancef Per ID recommendations. - Pain control (Toradol with Dilaudid for breakthrough) counseled regarding narcotics. - Heating pads - Repeat CT abd/pelvis shows significant improvement of psoas abscess. Right flank area pain -Symptoms improving. -If symptoms persist or worsen, will consider CT abdomen pelvis again to look for any additional abscess. Discussed with infectious disease on 10/31/2018. Polysubstance abuse - Patient admits to taking some non-prescribed methadone but denies any other drug use aside from her Lortab that's prescribed - UDS + for cocaine Left lower quadrant pain We obtained pelvic ultrasound which was unremarkable. KUB shows constipation. continue to use bowel regimen as well as start Fleet enema if necessary. Vaginal discharge - Happens when she is having a bowel movements. We appreciate gynecological evaluation. Funeral Car Driver recommend no further workup at this point. Wet prep pending. Full code. DVT prophylaxis: SCDs DC when imprpved and cleared by consultants. 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
[2018-11-01] MEDS: Sodium Chloride 0.9% 2 ML Flush PRN IV.FLUSH (20:39)
[2018-11-01] MEDS: Temazepam 15 MG Capsule PO PRN (22:38)
[2018-11-02] MEDS: HYDROmorphone PF Inj 2 MG/ML Vial IV.PUSH PRN ×6 (00:46→22:41)
[2018-11-02] MEDS: Sodium Chloride 0.9% 2 ML Flush PRN IV.FLUSH ×3 (00:47→22:42)
[2018-11-02] MEDS: Sod Chloride 0.9% Inj 1,000 ML IV.CONT SCH ×3 (01:18→20:24)
[2018-11-02] MEDS: ceFAZolin 2 GM Premix Inj 2 GM/50 ML PIGGYBACK IV.SIG SCH ×3 (05:08→20:22)
[2018-11-02] MEDS: Sodium Chloride 0.9% 2 ML Flush BID IV.FLUSH SCH ×2 (09:10→20:24)
[2018-11-02] MEDS: Senna/Docusate Sodium 8.6/50 MG Tablet PO SCH ×2 (09:10→20:23)
[2018-11-02] MEDS: Budesonide-Formoterol 160/4.5 MCG 6 GM Inhaler INH SCH ×2 (09:11→20:24)
--- NOTE | 2018-11-02 15:27 | P.PNIM ---
Subjective Interval history: 12- Follow-up for left pelvis iliopsoas abscess, substance abuse. Patient is resting in bed. She reports improvement of her right flank area pain. No fever or chills. 12-5 Follow-up for left pelvis iliopsoas abscess, substance abuse. Some pain in her right flank area. No fever or chills. No n/v/d/c. Eating fairly well. 12-6 CONTINUE ANTIBIOTICS DW RN AND PT AND CM DENIES ANY PAIN OR FEVERS AT THIS TIME STATES HAD SOME NAUSEA LAST NIGHT THAT RESOLVED WITH ZOFRAN AM LABS Physical Exam Vital signs: Vital Signs 11/01/18 16:00 11/01/18 19:44 11/02/18 04:00 Temperature 98.1 F 98.3 F 98.0 F Pulse Rate 73 74 76 Respiratory Rate 18 18 18 Blood Pressure 121/84 125/72 94/56 L Pulse Oximetry 95 98 99 11/02/18 08:00 11/02/18 12:00 Temperature 97.8 F 97.9 F Pulse Rate 72 71 Respiratory Rate 16 18 Blood Pressure 114/68 124/77 Pulse Oximetry 98 97 Intake & Output 11/01/18 11/02/18 11/02/18 18:59 06:59 18:59 Intake Total 1119 / 1119 1340 / 1340 50 / 50 Output Total 800 / 800 300 / 300 Balance 319 / 319 1040 / 1040 50 / 50 Weight 75.3 kg Intake: IV 399 / 399 1100 / 1100 50 / 50 NS Inj 1,000 ML @ 60 mls/hr IV. 299 / 299 1000 / 1000 CONT .[id number] COLLEEN Rx#:[id number] Ancef 2 GM Premix Inj 2 gm In 100 / 100 100 / 100 50 / 50 50 ml @ 100 mls/hr IV.SIG Q8H COLLEEN Rx#:[id number] Oral 720 / 720 240 / 240 Output: Urine 800 / 800 300 / 300 Other: Date of Last Bowel Movement 11/01/18 # Bowel Movements 1 Narrative: GENERAL: Alert, oriented x3, NAD. SKIN: Warm and dry. HEAD: Normocephalic. EYES: No scleral icterus. No injection or drainage. NECK: Supple, trachea midline. No JVD or lymphadenopathy. CARDIOVASCULAR: Regular rate and rhythm without murmurs, gallops, or rubs. RESPIRATORY: Breath sounds equal bilaterally. No accessory muscle use. GASTROINTESTINAL: Abdomen soft, non-tender, nondistended. MUSCULOSKELETAL: No cyanosis, or edema. Retroperitoneal drain in place BACK: Nontender without obvious deformity. Results - Labs CBC & Chem 7: 10/21/18 05:27 10/21/18 05:27 Laboratory Results - last 24 hr 11/02/18 11/02/18 06:38 06:38 ESR 29 H C-Reactive Protein Less than 0.29 - Imaging Impressions Abdomen/Pelvis CT 11/01/18 00:00 CONCLUSION: 1. No residual fluid collection from the iliopsoas drain on the left. 2. Overall interval improvement. - Procedures For drainage of lumbar/retroperitoneal abscess Assessment and Plan - Assessment (1) Sepsis Code(s): A41.9 - Sepsis, unspecified organism Status: Acute (2) Retroperitoneal fluid collection Code(s): R18.8 - Other ascites Status: Acute (3) Chest pain Code(s): R07.9 - Chest pain, unspecified Status: Acute - Plan sepsis/ L retroperitoneal and flank complex fluid collection - CT A/P noncontrast showing what appears to be possibly a large left retroperitoneal hemorrhage, however, given the interspersed fat along the superior lateral margin of this area there is concern for possible fat- containing mass such as liposarcoma and further evaluation with contrast- enhanced CT or MRI is recommended to exclude an enhancing mass. There is extension of the inflammatory changes identified within the left subcutaneous fatty tissues. This results in mild left-sided hydronephrosis without evidence of distal obstructing stone - CT A/P with contrast showed complex collection in the left retroperitoneal and flank musculature felt to be mostly like an abscess - s/p CT-guided drainage - fluid culture with MSSA. - Continue Ancef Per ID recommendations. - Pain control (Toradol with Dilaudid for breakthrough) counseled regarding narcotics. - Heating pads - Repeat CT abd/pelvis shows significant improvement of psoas abscess. Right flank area pain -Symptoms improving. -If symptoms persist or worsen, will consider CT abdomen pelvis again to look for any additional abscess. Discussed with infectious disease on 10/31/2018. Polysubstance abuse - Patient admits to taking some non-prescribed methadone but denies any other drug use aside from her Lortab that's prescribed - UDS + for cocaine Left lower quadrant pain We obtained pelvic ultrasound which was unremarkable. KUB shows constipation. continue to use bowel regimen as well as start Fleet enema if necessary. Vaginal discharge - Happens when she is having a bowel movements. We appreciate gynecological evaluation. Waiter/Waitress Formal recommend no further workup at this point. Wet prep pending. Full code. DVT prophylaxis: SCDs Code Status: FULL CODE Discussed Condition With: RN AND PT AND CM Discharge Planning: ONCE DONE WITH ANTIBIOTICS
[2018-11-02] MEDS: Temazepam 15 MG Capsule PO PRN (22:42)
[2018-11-03] MEDS: HYDROmorphone PF Inj 2 MG/ML Vial IV.PUSH PRN ×3 (02:48→11:58)
[2018-11-03] MEDS: Sodium Chloride 0.9% 2 ML Flush PRN IV.FLUSH ×2 (02:50→06:44)
[2018-11-03] MEDS: ceFAZolin 2 GM Premix Inj 2 GM/50 ML PIGGYBACK IV.SIG SCH (04:49)
[2018-11-03 07:20] LABS: Baso % (Auto) 0.2 % (0.0-2.0); Eos # (Auto) 0.1 th/mm3 (0.0-0.4); Hematocrit 33.6 % (35.0-46.0); Lymph # (Auto) 1.8 th/mm3 (1.0-4.8); Lymph % (Auto) 37.4 % (9.0-44.0); Mean Corpuscular HGB Conc 32.6 % (32.0-36.0); Mean Corpuscular Hemoglobin 28.4 pg (27.0-34.0); Mean Corpuscular Volume 87.1 fL (80.0-100.0); Mean Platelet Volume 8.6 fL (7.0-11.0); Mono # (Auto) 0.3 th/mm3 (0.0-0.9); Mono % (Auto) 5.9 % (0.0-8.0); Neut # (Auto) 2.5 th/mm3 (1.8-7.7); Neut % (Auto) 53.5 % (16.0-70.0); Platelet Count 312 th/mm3 (150-450); Red Blood Count 3.85 mil/mm3 (4.00-5.30); Red Cell Distribution Width 18.1 % (11.6-17.2); White Blood Count 4.7 th/mm3 (4.0-11.0)
[2018-11-03 07:33] LABS: Alanine Aminotransferase 30 U/L (10-53); Albumin 3.3 g/dL (3.4-5.0); Anion Gap 5 meq/L (5-15); Aspartate Aminotransferase 46 U/L (15-37); Blood Urea Nitrogen 15 mg/dL (7-18); Calcium 8.4 mg/dL (8.5-10.1); Carbon Dioxide 29.8 meq/L (21.0-32.0); Chloride 105 meq/L (98-107); Glomerular Filtration Rate 87 mL/min (>89); Glucose,Random 93 mg/dL (74-106); Magnesium 1.7 mg/dL (1.5-2.5); Phosphorus 4.2 mg/dL (2.5-4.9); Potassium 4.1 meq/L (3.5-5.1); Sodium 140 meq/L (136-145)
[2018-11-03 07:42] LABS: Alkaline Phosphatase 127 U/L (45-117); Free T4 (Free Thyroxine) 0.93 ng/dL (0.76-1.46); Total Protein 7.7 g/dL (6.4-8.2)
[2018-11-03 08:37] VITALS: RESP 18
[2018-11-03] MEDS: Senna/Docusate Sodium 8.6/50 MG Tablet PO SCH (09:36)
[2018-11-03] MEDS: Sodium Chloride 0.9% 2 ML Flush BID IV.FLUSH SCH (09:36)
[2018-11-03] MEDS: Sod Chloride 0.9% Inj 1,000 ML IV.CONT SCH (11:17)
[2018-11-03] MEDS: Budesonide-Formoterol 160/4.5 MCG 6 GM Inhaler INH SCH (11:21)
--- NOTE | 2018-11-03 11:32 | P.PNID ---
Subjective Remarks: Patient is a 43-year-old female, presented to the hospital for further evaluation of 3-week history of worsening left flank pain and left-sided abdominal pain. Patient stated that back in June she is started having pain in her back and in the left flank area. She went to the emergency room, and was told that she has degenerative disease in the disc and she was discharged. The pain eventually got better but the pain started going down her left lower extremity. She also had noted that her leg was swollen. The swelling gradually improve over time, and she has had problem ambulating. The last 3 weeks the pain in her back came back and this time it was also radiating to the left side of her abdomen. Was progressively worsening. She was having some fevers and chills. She denies any urinary retention or incontinence, and no stool incontinence. Patient has a remote history of IV drug use, but has used cocaine in other ways. She presented back to the hospital, and imaging study is showing a complex fluid collection in the retroperitoneal area. She has had some low-grade fevers. Her WBC is 13,000. Urinalysis okay. Infectious disease consultation has been requested to assist with evaluation and treatment. Patient is currently on n.p.o. There is an IR consult to do a diagnostic tap of the fluid collection, possibly drainage. Notes reviewed Temps ok Drain has been removed Repeat CT A/P -resolution of fluid collection ESR and CRP better Antibiotics: Ancef Past Medical History: Endometriosis History of intravenous drug abuse Substance abuse Hepatitis C History of hand surgery Hx of cholecystectomy Allergies/Adverse Reactions: Allergies morphine Allergy (Severe, Verified 10/15/18 08:28) HIVES-SOB penicillin G Allergy (Severe, Verified 10/15/18 08:28) SWELLING Sulfa (Sulfonamide Antibiotics) Allergy (Severe, Verified 10/15/18 08:28) SWELLING gabapentin Allergy (Verified 10/15/18 08:28) Weight Gain Objective Vital Signs 11/02/18 12:00 11/02/18 16:00 11/02/18 20:00 Temperature 97.9 F 98.3 F 98.0 F Pulse Rate 71 79 93 H Respiratory Rate 18 16 20 Blood Pressure 124/77 113/68 154/85 H Pulse Oximetry 97 97 98 11/03/18 00:00 11/03/18 04:00 11/03/18 08:00 Temperature 97.9 F 98.0 F 97.9 F Pulse Rate 81 86 67 Respiratory Rate 20 20 18 Blood Pressure 102/68 106/54 L 103/58 L Pulse Oximetry 95 94 L 97 Intake & Output 11/02/18 11/03/18 11/03/18 18:59 06:59 18:59 Intake Total 1130 / 1130 819 / 819 700 / 700 Output Total 1150 / 1150 900 / 900 Balance -20 / -20 -81 / -81 700 / 700 Weight 84.2 kg Intake: IV 50 / 50 399 / 399 700 / 700 NS Inj 1,000 ML @ 60 mls/hr IV. 0 / 0 299 / 299 700 / 700 CONT .[id number] COLLEEN Rx#:[id number] Ancef 2 GM Premix Inj 2 gm In 50 / 50 100 / 100 50 ml @ 100 mls/hr IV.SIG Q8H COLLEEN Rx#:[id number] Oral 1080 / 1080 420 / 420 Output: Urine 1150 / 1150 900 / 900 Other: Date of Last Bowel Movement 11/02/18 11/02/18 # Bowel Movements 1 Lab - Hematology Results 11/02/18 11/03/18 06:38 04:44 WBC 4.7 RBC 3.85 L Hgb 11.0 L Hct 33.6 L MCV 87.1 MCH 28.4 MCHC 32.6 RDW 18.1 H Plt Count 312 D MPV 8.6 Neut % (Auto) 53.5 Lymph % (Auto) 37.4 [place] % (Auto) 5.9 Eos % (Auto) 3.0 Baso % (Auto) 0.2 Neut # (Auto) 2.5 Lymph # (Auto) 1.8 [place] # (Auto) 0.3 Eos # (Auto) 0.1 Baso # (Auto) 0.0 WBC Differential . Differential Comment Auto diff final ESR 29 H Lab - Chemistry Results 11/02/18 11/03/18 06:38 04:44 Sodium 140 Potassium 4.1 Chloride 105 Carbon Dioxide 29.8 Anion Gap 5 BUN 15 Creatinine 0.73 Estimated GFR 87 L Random Glucose 93 Calcium 8.4 L Phosphorus 4.2 Magnesium 1.7 Total Bilirubin 0.2 AST 46 H ALT 30 Alkaline Phosphatase 127 H C-Reactive Protein Less than 0.29 Total Protein 7.7 Albumin 3.3 L TSH 2.060 Free T4 0.93 Imaging: ITS Impressions Chest X-Ray 10/15/18 08:38 CONCLUSION: Negative examination. Retroperitoneal Abscess Drainage 10/16/18 00:00 CONCLUSION: Uncomplicated CT guided drainage. Lumbar Spine MRI 10/18/18 00:00 CONCLUSION: 1. Left iliopsoas abscess partially visualized. Prior imaging shows this in better detail. 2. Abnormal signal extending from the left iliopsoas abscess towards and into the left L5 neural foramen consistent with phlegmon but no liquefaction to an abscess at this point. This may generate a left L5 radiculopathy. Abdomen X-Ray 10/24/18 00:00 CONCLUSION: Constipation Abdomen/Pelvis/Transvag US 10/24/18 00:00 CONCLUSION: Unremarkable sonographic appearance of the pelvis. Abdomen/Pelvis CT 11/01/18 00:00 CONCLUSION: 1. No residual fluid collection from the iliopsoas drain on the left. 2. Overall interval improvement. Physical Exam: GENERAL: awake and alert, NAD. SKIN: Cool and dry. No generalized rash EYES: Emmett conjunctiva. No petechia or hemorrhage. No scleral icterus. No injection or drainage. EARS, NOSE AND THROAT: Mucous membranes pink and moist. No oral lesions noted. No exudate. No oral thrush. NECK: Trachea midline. Supple and not tender, no meningeal signs CARDIOVASCULAR: Regular rate and rhythm. No murmurs, rubs or gallops heard RESPIRATORY: Clear to auscultation. Breath sounds equal bilaterally. No rales , wheezing or rhonchi ABDOMEN: Soft, nondistended. Not tender. Bowel sounds present and normoactive. EXTREMITIES: No clubbing, cyanosis, or edema. No calf tenderness. NEUROLOGICAL: non-focal PSYCHIATRIC: Normal affect, calm and cooperative. LINE: No evidence of infection Introitus - no vaginal discharge noted, no redness or swelling Assessment and Plan - Plan Impression L retroperitoneal and flank complex fluid collection MSSA - drained ?old Lumbar discitis on CT - MRI ok Admits to remote IVDU, has been using cocaine but not IV Allergy to PCN, has tolerated cephalosporins Recommendation Change to Rocephin Midline Ask CM to arrange for IV Abx in infusion clinic I will fill out Abx form OK for D/C once arrangements made D/W patient regarding risks and complication if she manipulates and use her venous access
--- NOTE | 2018-11-03 11:34 | P.DCO ---
Post Hospital Infusion Therapy - Infusion Therapy Location of Infusion Therapy: Ambulatory Infusion Therapy Order - Patient Information Patient Weight: 84.2 kg - Diagnosis (1) Iliopsoas abscess on left Code(s): K68.12 - Psoas muscle abscess (2) MSSA (methicillin susceptible Staphylococcus aureus) infection Code(s): A49.01 - Methicillin susceptible Staphylococcus aureus infection, unspecified site - Administer Medication Ceftriaxone Dose: 2 grams IV Directions: q 24 hours Stop Treatment: 11/16/18 - Additional Information Venous Access: Other (Midline) Additional Instructions: [x] Peripheral flush and dressing changes per protocol [x] Implanted port and central engineer station mainline: * Implanted port: 10 ml Normal Saline followed by 5 ml Heparin 100 units/ml Heparin flush after each use and monthly to maintain. [] May leave port accessed during therapy. [] May leave peripheral site accessed for duration of therapy. [x] If patient has SOB or respiratory distress, check oxygen saturation. If less than 90% or clinical signs of respiratory distress, administer oxygen at 2 L/min. via nasal cannula and notify physician. [x] Anaphylaxis/Reaction orders: * Stop infusion. * Keep IV line open with saline flush. * Notify physician. * Monitor vital signs every 15 minutes until symptoms resolve. * Check Oxygen saturation; Oxygen at 2 L/min. via nasal cannula if less than 90% or clinical signs of respiratory distress. * Administer diphenhydramine (Benadryl) 25 mg IV STAT, (unless patient has received as pre-med). May repeat once, if necessary. * Solu-Cortef 250 mg IVP over 30-60 seconds, use 100 mg vials for each dissolution. * Epinephrine (1mg/1 ml) 0.3 mg subcutaneously or IVP now with any signs of respiratory distress. * Check with physician for new additional pre-med orders if patient is re- challenged or re-treated. [x] May remove midline when treatment complete. [x] If the patient is admitted to the hospital, the ED, or transferred via [facility] , complete transfer form including medication reconciliation order sheet. Weekly Labs: CBC w/diff, Creatinine, LFTs (Hepatic Function Test) (Labs every Tuesday - copy to sc) - Case Management Consult Case Management Consult-IVF: Yes (IV antibiotic infusion) - Patient Information Allergies morphine Allergy (Severe, Verified 10/15/18 08:28) HIVES-SOB penicillin G Allergy (Severe, Verified 10/15/18 08:28) SWELLING Sulfa (Sulfonamide Antibiotics) Allergy (Severe, Verified 10/15/18 08:28) SWELLING gabapentin Allergy (Verified 10/15/18 08:28) Weight Gain
--- NOTE | 2018-11-03 14:48 | P.PNIM ---
Subjective Interval history: 10-31 Follow-up for left pelvis iliopsoas abscess, substance abuse. Patient is resting in bed. She reports improvement of her right flank area pain. No fever or chills. 11-01 Follow-up for left pelvis iliopsoas abscess, substance abuse. Some pain in her right flank area. No fever or chills. No n/v/d/c. Eating fairly well. 11-02 CONTINUE ANTIBIOTICS DW RN AND PT AND CM DENIES ANY PAIN OR FEVERS AT THIS TIME STATES HAD SOME NAUSEA LAST NIGHT THAT RESOLVED WITH ZOFRAN AM LABS 11-03 has been cleared for DISCHARGE BY ID HAS HAD MIDLINE PLACED TODAY DRAINS ARE OUT HAS BEEN SET UP FOR CEFTRIAXONE 2GRAMS IV DAILY THROUGH 11-16 CAN DC TO HOME TODAY DW RN AND PT AND CM AND ID Physical Exam Vital signs: Vital Signs 11/02/18 16:00 11/02/18 20:00 11/03/18 00:00 Temperature 98.3 F 98.0 F 97.9 F Pulse Rate 79 93 H 81 Respiratory Rate 16 20 20 Blood Pressure 113/68 154/85 H 102/68 Pulse Oximetry 97 98 95 11/03/18 04:00 11/03/18 08:00 11/03/18 12:00 Temperature 98.0 F 97.9 F 98 F Pulse Rate 86 67 89 Respiratory Rate 20 18 18 Blood Pressure 106/54 L 103/58 L 136/81 Pulse Oximetry 94 L 97 96 Intake & Output 11/02/18 11/03/18 11/03/18 18:59 06:59 18:59 Intake Total 1130 / 1130 819 / 819 800 / 800 Output Total 1150 / 1150 900 / 900 Balance -20 / -20 -81 / -81 800 / 800 Weight 84.2 kg 84.2 kg Intake: IV 50 / 50 399 / 399 800 / 800 NS Inj 1,000 ML @ 60 mls/hr IV. 0 / 0 299 / 299 700 / 700 CONT .[id number] [facility]LEEN Rx#:[id number] Ancef 2 GM Premix Inj 2 gm In 50 / 50 100 / 100 50 ml @ 100 mls/hr IV.SIG Q8H COLLEEN Rx#:[id number] Rocephin Inj 2,000 MG In NS Inj 100 / 100 100 ML @ 200 mls/hr IV.SIG Q24H COLLEEN Rx#:[id number] Oral 1080 / 1080 420 / 420 Output: Urine 1150 / 1150 900 / 900 Other: Date of Last Bowel Movement 11/02/18 11/02/18 # Bowel Movements 1 Narrative: GENERAL: Alert, oriented x3, NAD. SKIN: Warm and dry. HEAD: Normocephalic. EYES: No scleral icterus. No injection or drainage. NECK: Supple, trachea midline. No JVD or lymphadenopathy. CARDIOVASCULAR: Regular rate and rhythm without murmurs, gallops, or rubs. RESPIRATORY: Breath sounds equal bilaterally. No accessory muscle use. GASTROINTESTINAL: Abdomen soft, non-tender, nondistended. MUSCULOSKELETAL: No cyanosis, or edema. BACK: Nontender without obvious deformity. HAS HAD MIDLINE PLACED TODAY Results - Labs CBC & Chem 7: 11/03/18 04:44 11/03/18 04:44 Laboratory Results - last 24 hr 11/03/18 11/03/18 04:44 04:44 WBC 4.7 RBC 3.85 L Hgb 11.0 L Hct 33.6 L MCV 87.1 MCH 28.4 MCHC 32.6 RDW 18.1 H Plt Count 312 D MPV 8.6 Neut % (Auto) 53.5 Lymph % (Auto) 37.4 [place] % (Auto) 5.9 Eos % (Auto) 3.0 Baso % (Auto) 0.2 Neut # (Auto) 2.5 Lymph # (Auto) 1.8 [place] # (Auto) 0.3 Eos # (Auto) 0.1 Baso # (Auto) 0.0 WBC Differential . Differential Comment Auto diff final Sodium 140 Potassium 4.1 Chloride 105 Carbon Dioxide 29.8 Anion Gap 5 BUN 15 Creatinine 0.73 Estimated GFR 87 L Random Glucose 93 Calcium 8.4 L Phosphorus 4.2 Magnesium 1.7 Total Bilirubin 0.2 AST 46 H ALT 30 Alkaline Phosphatase 127 H Total Protein 7.7 Albumin 3.3 L TSH 2.060 Free T4 0.93 - Imaging Chest X-Ray 10/15/18 08:38 CONCLUSION: Negative examination. Abdomen/Pelvis CT 10/15/18 08:41 CONCLUSION: 1. Abnormal exam with what appears to be possibly a large left retroperitoneal hemorrhage, however, given the interspersed fat along the superior lateral margin of this area there is concern for possible fat-containing mass such as liposarcoma and further evaluation with contrast-enhanced CT or MRI is recommended to exclude an enhancing mass. There is extension of the inflammatory changes identified within the left subcutaneous fatty tissues. This results in mild left-sided hydronephrosis without evidence of distal obstructing stone. Abdomen/Pelvis CT 10/15/18 10:15 CONCLUSION: Complex collection in the left retroperitoneal and flank musculature, felt most likely abscess. Percutaneous drainage under CT guidance does appear feasible Retroperitoneal Abscess Drainage 10/16/18 00:00 CONCLUSION: Uncomplicated CT guided drainage. Lumbar Spine MRI 10/18/18 00:00 CONCLUSION: 1. Left iliopsoas abscess partially visualized. Prior imaging shows this in better detail. 2. Abnormal signal extending from the left iliopsoas abscess towards and into the left L5 neural foramen consistent with phlegmon but no liquefaction to an abscess at this point. This may generate a left L5 radiculopathy. Abdomen X-Ray 10/24/18 00:00 CONCLUSION: Constipation Abdomen/Pelvis/Transvag US 10/24/18 00:00 CONCLUSION: Unremarkable sonographic appearance of the pelvis. Abdomen/Pelvis CT 10/25/18 00:00 CONCLUSION: 1. Significant interval improvement of the left iliopsoas collection/abscess status post drain placement. No significant fluid or air remains. Scattered inflammatory changes are still noted. 2. Interval slight improvement of the pelvicaliectasis on the left compared to previous examination. Minimal residual left lower pole perinephric streaking is noted. 3. Chronic extensive endplate sclerosis and erosive changes are noted at L4-5 level. Abdomen/Pelvis CT 11/01/18 00:00 CONCLUSION: 1. No residual fluid collection from the iliopsoas drain on the left. 2. Overall interval improvement. - Procedures For drainage of lumbar/retroperitoneal abscess CT abscess drain alysa/retro Signed EXAM DATE: 10/16/2018 4:24 PM EST AGE/SEX: 43 years / Female INDICATIONS: Left pelvic abscess CLINICAL DATA: This is the patient's initial encounter. Patient reports that signs and symptoms have been present for 1 day and indicates a pain score of 4/ 10. MEDICAL/SURGICAL HISTORY: Hepatitis C. Cholecystectomy. COMPARISON: [facility] – [place], [place], CT ABDOMEN & PELVIS W CONTRAST, 10/15/2018. . BIOPSY SITE: left pelvis DEVICE(S): 8 Fr Skater FLUID: Total volume of 40 mL cyst of cloudy, purulent and bloody fluid was removed. Fluid was sent to lab for ordered studies.. . . PROCEDURE : CT guided drainage of the left pelvis iliopsoas abscess. The risks, benefits and alternatives to the procedure were explained and verbal and written consent was obtained. Using automated exposure control and adjustment of the mA and/or kV according to patient size, radiation dose was kept as low as reasonably achievable to obtain optimal diagnostic quality images. The site was prepped in sterile fashion. Full sterile technique was used, including cap, mask, sterile gloves and gown and a large sterile sheet. Hand hygiene and 2% chlorhexidine and/or betadine/alcohol prep was utilized per protocol for cutaneous antisepsis. The skin and subcutaneous tissues were infiltrated with local anesthetic solution. DICOM format image data is available electronically for review and comparison. Using CT guidance the prescribed site was localized. Drainage was performed using the prescribed catheter. The patient tolerated the procedure well and there were no complications. The patient tolerated the procedure well and there were no complications. The patient was sent to post anesthesia recovery in stable condition. CONCLUSION: Uncomplicated CT guided drainage. Electronically signed by: Ronan Sauer MD 10/16/2018 4:28 PM EST MIDLINE 12-7 Assessment and Plan - Assessment (1) Sepsis Code(s): A41.9 - Sepsis, unspecified organism Status: Acute (2) Retroperitoneal fluid collection Code(s): R18.8 - Other ascites Status: Acute (3) Chest pain Code(s): R07.9 - Chest pain, unspecified Status: Acute - Plan sepsis/ L retroperitoneal and flank complex fluid collection - CT A/P noncontrast showing what appears to be possibly a large left retroperitoneal hemorrhage, however, given the interspersed fat along the superior lateral margin of this area there is concern for possible fat- containing mass such as liposarcoma and further evaluation with contrast- enhanced CT or MRI is recommended to exclude an enhancing mass. There is extension of the inflammatory changes identified within the left subcutaneous fatty tissues. This results in mild left-sided hydronephrosis without evidence of distal obstructing stone - CT A/P with contrast showed complex collection in the left retroperitoneal and flank musculature felt to be mostly like an abscess - s/p CT-guided drainage - fluid culture with MSSA. - Continue Ancef Per ID recommendations. - Pain control (Toradol with Dilaudid for breakthrough) counseled regarding narcotics. - Heating pads - Repeat CT abd/pelvis shows significant improvement of psoas abscess. DRAIN OUT DC TO HOME ROCEPHIN 2GRAMS IV DAILY AT [facility] VIA MIDLINE THROUGH 11-16 Right flank area pain -Symptoms improving. -If symptoms persist or worsen, will consider CT abdomen pelvis again to look for any additional abscess.--RESOLVED Discussed with infectious disease on 11/03 Polysubstance abuse - Patient admits to taking some non-prescribed methadone but denies any other drug use aside from her Lortab that's prescribed - UDS + for cocaine Left lower quadrant pain We obtained pelvic ultrasound which was unremarkable. KUB shows constipation. continue to use bowel regimen as well as start Fleet enema if necessary. Vaginal discharge - Happens when she is having a bowel movements. We appreciate gynecological evaluation. Resource Room Special Education Teacher recommend no further workup at this point. Wet prep pending. Full code. DVT prophylaxis: SCDs DC TO HOME TODAY HAS MIDLINE AND ROCEPHIN 2GRAMS THROUGH IV AT [facility] THROUGH 11-16 DC TODAY SEE MED REC Code Status: FULL CODE Discussed Condition With: RN AND PT AND ID AND CM Discharge Planning: DC TO HOME TODAY OUTPT ROCEPHIN 2 GRAM VIA MIDLINE THROUGH 11-16
--- NOTE | 2018-11-03 15:09 | P.DS ---
Date of admission: 10/15/18 12:05 Primary care physician: London Cary MD Attending physician on discharge: Jemal Badillo Anticipated date of discharge: 11/03/18 Brief History from admission: 43 year old female with chronic back pain, polysubstance abuse, hepatitis C, COPD, and frequent MRSA infections presenting with left flank pain and chest pain. She reports she started having left flank pain that radiates to her left rib and LLQ for the past three weeks. She states the pain is constant and never lets up. She rates it up to 10/10 and states it is unlike anything she has ever experienced. She has tried Flexeril, Lortab, and a methadone someone gave her none of which provided relief. Deep breathing, movement, talking, and coughing exacerbate her pain. She then started having left sided chest pain three days ago that comes and goes but is sharp and exacerbated by deep breaths. She states she is unsure if this is related to the pain she has been having or her anxiety. She endorses some associated nausea for the past three weeks but denies vomiting or diarrhea. She hasn't had a BM in about 3-4 days. She states she occasionally has bright red blood when she wipes which she attributes to hemorrhoids. She endorses a 10 lb weight loss in the past two weeks as well as night sweats and chills. She states last week she had "convulsing chills" that lasted about 45 minutes. She endorses diminished appetite and general malaise. The patient came to the ER back in June for left-sided back pain with radiation down her left leg. She had a negative XR and on f/u with her PCP she was put on Flexeril, prednisone, and Lortab. She states her back was better within three days though the pain down her left leg still comes and goes. Her PCP is Dr. London Cary. PMH: hepatitis C, history of frequent MRSA infections, COPD, hypoglycemia, osteoarthritis, chronic back pain Surgical Hx: cholecystectomy, 4-5 elective abortions, hand surgery Family Hx: maternal aunt and grandmother with breast cancer, father with CAD, mother with CHF Social Hx: lives with uncle and roommate, smoke 1/2 PPD x 30 years, denies EtOH , history of IV drug use ~10 yrs ago Inpatient Certification I certify that the inpatient services were ordered in accordance with Medicare regulations governing the order. This includes certification that hospital inpatient services are reasonable and necessary and in the case of services not specified as inpatient-only under 42 CFR 419.22(n), that they are appropriately provided as inpatient services in accordance to with the 2-midnight benchmark under 43 CFR 412.3(e) Patient update on day of discharge: 10-31 Follow-up for left pelvis iliopsoas abscess, substance abuse. Patient is resting in bed. She reports improvement of her right flank area pain. No fever or chills. - Follow-up for left pelvis iliopsoas abscess, substance abuse. Some pain in her right flank area. No fever or chills. No n/v/d/c. Eating fairly well. 11-02 CONTINUE ANTIBIOTICS KRISTEL RN AND PT AND CM DENIES ANY PAIN OR FEVERS AT THIS TIME STATES HAD SOME NAUSEA LAST NIGHT THAT RESOLVED WITH ZOFRAN AM LABS 11-03 has been cleared for DISCHARGE BY ID HAS HAD MIDLINE PLACED TODAY DRAINS ARE OUT HAS BEEN SET UP FOR CEFTRIAXONE 2GRAMS IV DAILY THROUGH 11-16 CAN DC TO HOME TODAY KRISTEL RN AND PT AND CM AND ID DS: Diagnosis - Discharge Diagnosis (1) Sepsis Status: Acute (2) Retroperitoneal fluid collection Status: Acute (3) Chest pain Status: Acute (4) Back pain Status: Acute (5) Iliopsoas abscess on left Status: Acute (6) Pelvic pain Status: Acute (7) MSSA (methicillin susceptible Staphylococcus aureus) infection Status: Acute DS: Medications - Discharge Medications Prescriptions: bisacodyl [Bisac-Evac] 10 mg NH DAILY PRN #30 ea PRN Reason: Severe Consitipation budesonide-formoterol [Symbicort] 2 puff INHALATION BID #1 inh hydrocodone-acetaminophen 2 tab PO Q4H PRN #40 tab PRN Reason: Pain ondansetron HCl [Zofran] 8 mg PO TID PRN #30 tab PRN Reason: Nausea And Vomiting sennosides-docusate sodium [Senna Plus] 2 tab PO BID #120 tab temazepam 15 mg PO HS PRN #30 cap PRN Reason: Insomnia DS: Summary Hospital Course: History of Present Illness: 43 year old female with chronic back pain, polysubstance abuse, hepatitis C, COPD, and frequent MRSA infections presenting with left flank pain and chest pain. She reports she started having left flank pain that radiates to her left rib and LLQ for the past three weeks. She states the pain is constant and never lets up. She rates it up to 10/10 and states it is unlike anything she has ever experienced. She has tried Flexeril, Lortab, and a methadone someone gave her none of which provided relief. Deep breathing, movement, talking, and coughing exacerbate her pain. She then started having left sided chest pain three days ago that comes and goes but is sharp and exacerbated by deep breaths. She states she is unsure if this is related to the pain she has been having or her anxiety. She endorses some associated nausea for the past three weeks but denies vomiting or diarrhea. She hasn't had a BM in about 3-4 days. She states she occasionally has bright red blood when she wipes which she attributes to hemorrhoids. She endorses a 10 lb weight loss in the past two weeks as well as night sweats and chills. She states last week she had "convulsing chills" that lasted about 45 minutes. She endorses diminished appetite and general malaise. The patient came to the ER back in June for left-sided back pain with radiation down her left leg. She had a negative XR and on f/u with her PCP she was put on Flexeril, prednisone, and Lortab. She states her back was better within three days though the pain down her left leg still comes and goes. Her PCP is Dr. London Cary. PMH: hepatitis C, history of frequent MRSA infections, COPD, hypoglycemia, osteoarthritis, chronic back pain Surgical Hx: cholecystectomy, 4-5 elective abortions, hand surgery Family Hx: maternal aunt and grandmother with breast cancer, father with CAD, mother with CHF Social Hx: lives with uncle and roommate, smoke 1/2 PPD x 30 years, denies EtOH , history of IV drug use ~10 yrs ago 12-4 Follow-up for left pelvis iliopsoas abscess, substance abuse. Patient is resting in bed. She reports improvement of her right flank area pain. No fever or chills. 12-5 Follow-up for left pelvis iliopsoas abscess, substance abuse. Some pain in her right flank area. No fever or chills. No n/v/d/c. Eating fairly well. 12-6 CONTINUE ANTIBIOTICS DW RN AND PT AND CM DENIES ANY PAIN OR FEVERS AT THIS TIME STATES HAD SOME NAUSEA LAST NIGHT THAT RESOLVED WITH ZOFRAN AM LABS 11-03 has been cleared for DISCHARGE BY ID HAS HAD MIDLINE PLACED TODAY DRAINS ARE OUT HAS BEEN SET UP FOR CEFTRIAXONE 2GRAMS IV DAILY THROUGH 11-16 CAN DC TO HOME TODAY DW RN AND PT AND CM AND ID Patient has been seen by infectious disease as well as gynecology Has been cleared by both for discharge will be discharged to home today already has the midline placed and will follow with the infusion center for any other information please see the chart sepsis/ L retroperitoneal and flank complex fluid collection - CT A/P noncontrast showing what appears to be possibly a large left retroperitoneal hemorrhage, however, given the interspersed fat along the superior lateral margin of this area there is concern for possible fat- containing mass such as liposarcoma and further evaluation with contrast- enhanced CT or MRI is recommended to exclude an enhancing mass. There is extension of the inflammatory changes identified within the left subcutaneous fatty tissues. This results in mild left-sided hydronephrosis without evidence of distal obstructing stone - CT A/P with contrast showed complex collection in the left retroperitoneal and flank musculature felt to be mostly like an abscess - s/p CT-guided drainage - fluid culture with MSSA. - Continue Ancef Per ID recommendations. - Pain control (Toradol with Dilaudid for breakthrough) counseled regarding narcotics. - Heating pads - Repeat CT abd/pelvis shows significant improvement of psoas abscess. DRAIN OUT DC TO HOME ROCEPHIN 2GRAMS IV DAILY AT INFUSION CENTER VIA MIDLINE THROUGH 11-16 Right flank area pain -Symptoms improving. -If symptoms persist or worsen, will consider CT abdomen pelvis again to look for any additional abscess.--RESOLVED Discussed with infectious disease on 11/03 Polysubstance abuse - Patient admits to taking some non-prescribed methadone but denies any other drug use aside from her Lortab that's prescribed - UDS + for cocaine Left lower quadrant pain We obtained pelvic ultrasound which was unremarkable. KUB shows constipation. continue to use bowel regimen as well as start Fleet enema if necessary. Vaginal discharge - Happens when she is having a bowel movements. We appreciate gynecological evaluation. [place] recommend no further workup at this point. Wet prep pending. Full code. DVT prophylaxis: SCDs DC TO HOME TODAY HAS MIDLINE AND ROCEPHIN 2GRAMS THROUGH IV AT INFUSION CENTER THROUGH 12 DC TODAY SEE [facility] [id number] Prescription Drug Monitoring Database has been queried and verified prior to prescribing the controlled substance. Acute pain exception. This patient has normal, predicted, physiological, and time limited response to an adverse mechanical stimulus associated with surgery, trauma, or acute illness as described in my notes. There is a lack of alternative treatment options other than to include the prescribed narcotic treatment for this condition. - Time Spent with Patient Total time spent providing and/or coordinating discharge services: Greater than 30 minutes - Quality: VTE Deep Vein Thrombosis/Pulmonary Embolism Present on Admission: No Exam Vital signs: Vital Signs 11/02/18 16:00 11/02/18 20:00 11/03/18 00:00 Temperature 98.3 F 98.0 F 97.9 F Pulse Rate 79 93 H 81 Respiratory Rate 16 20 20 Blood Pressure 113/68 154/85 H 102/68 Pulse Oximetry 97 98 95 11/03/18 04:00 11/03/18 08:00 11/03/18 12:00 Temperature 98.0 F 97.9 F 98 F Pulse Rate 86 67 89 Respiratory Rate 20 18 18 Blood Pressure 106/54 L 103/58 L 136/81 Pulse Oximetry 94 L 97 96 Intake & Output 11/02/18 11/03/18 11/03/18 18:59 06:59 18:59 Intake Total 1130 / 1130 819 / 819 800 / 800 Output Total 1150 / 1150 900 / 900 Balance -20 / -20 -81 / -81 800 / 800 Weight 84.2 kg 84.2 kg Intake: IV 50 / 50 399 / 399 800 / 800 NS Inj 1,000 ML @ 60 mls/hr IV. 0 / 0 299 / 299 700 / 700 CONT .[id number] COLLEEN Rx#:[id number] Ancef 2 GM Premix Inj 2 gm In 50 / 50 100 / 100 50 ml @ 100 mls/hr IV.SIG Q8H COLLEEN Rx#:[id number] Rocephin Inj 2,000 MG In NS Inj 100 / 100 100 ML @ 200 mls/hr IV.SIG Q24H COLLEEN Rx#:[id number] Oral 1080 / 1080 420 / 420 Output: Urine 1150 / 1150 900 / 900 Other: Date of Last Bowel Movement 11/02/18 11/02/18 # Bowel Movements 1 Narrative: GENERAL: Alert, oriented x3, NAD. SKIN: Warm and dry. HEAD: Normocephalic. EYES: No scleral icterus. No injection or drainage. NECK: Supple, trachea midline. No JVD or lymphadenopathy. CARDIOVASCULAR: Regular rate and rhythm without murmurs, gallops, or rubs. RESPIRATORY: Breath sounds equal bilaterally. No accessory muscle use. GASTROINTESTINAL: Abdomen soft, non-tender, nondistended. MUSCULOSKELETAL: No cyanosis, or edema. BACK: Nontender without obvious deformity. HAS HAD MIDLINE PLACED TODAY Results Procedures completed during hospitalization: For drainage of lumbar/retroperitoneal abscess CT abscess drain alysa/retro Signed EXAM DATE: 10/16/2018 4:24 PM EST AGE/SEX: 43 years / Female INDICATIONS: Left pelvic abscess CLINICAL DATA: This is the patient's initial encounter. Patient reports that signs and symptoms have been present for 1 day and indicates a pain score of 4/ 10. MEDICAL/SURGICAL HISTORY: Hepatitis C. Cholecyst[place]. [place] [facility] [place]. . BIOPSY SITE: left pelvis DEVICE(S): 8 Fr Skater FLUID: Total volume of 40 mL cyst of cloudy, purulent and bloody fluid was removed. Fluid was sent to lab for ordered studies.. . . PROCEDURE : CT guided drainage of the left pelvis iliopsoas abscess. The risks, benefits and alternatives to the procedure were explained and verbal and written consent was obtained. Using automated exposure control and adjustment of the mA and/or kV according to patient size, radiation dose was kept as low as reasonably achievable to obtain optimal diagnostic quality images. The site was prepped in sterile fashion. Full sterile technique was used, including cap, mask, sterile gloves and gown and a large sterile sheet. Hand hygiene and 2% chlorhexidine and/or betadine/alcohol prep was utilized per protocol for cutaneous antisepsis. The skin and subcutaneous tissues were infiltrated with local anesthetic solution. DICOM format image data is available electronically for review and comparison. Using CT guidance the prescribed site was localized. Drainage was performed using the prescribed catheter. The patient tolerated the procedure well and there were no complications. The patient tolerated the procedure well and there were no complications. The patient was sent to post anesthesia recovery in stable condition. CONCLUSION: Uncomplicated CT guided drainage. Electronically signed by: Ronan Sauer MD 10/16/2018 4:28 PM EST MIDLINE 12-7 Completed studies during hospitalization: Laboratory Results WBC 4.7 th/mm3 (4.0-11.0) 11/03/18 04:44 RBC 3.85 mil/mm3 (4.00-5.30) L 11/03/18 04:44 Hgb 11.0 gm/dL (11.6-15.3) L 11/03/18 04:44 Hct 33.6 % (35.0-46.0) L 11/03/18 04:44 MCV 87.1 fL (80.0-100.0) 11/03/18 04:44 MCH 28.4 pg (27.0-34.0) 11/03/18 04:44 MCHC 32.6 % (32.0-36.0) 11/03/18 04:44 RDW 18.1 % (11.6-17.2) H 11/03/18 04:44 Plt Count 312 th/mm3 (150-450) D 11/03/18 04:44 MPV 8.6 fL (7.0-11.0) 11/03/18 04:44 Neut % (Auto) 53.5 % (16.0-70.0) 11/03/18 04:44 Lymph % (Auto) 37.4 % (9.0-44.0) 11/03/18 04:44 [place] % (Auto) 5.9 % (0.0-8.0) 11/03/18 04:44 Eos % (Auto) 3.0 % (0.0-4.0) 11/03/18 04:44 Baso % (Auto) 0.2 % (0.0-2.0) 11/03/18 04:44 Neut # (Auto) 2.5 th/mm3 (1.8-7.7) 11/03/18 04:44 Lymph # (Auto) 1.8 th/mm3 (1.0-4.8) 11/03/18 04:44 [place] # (Auto) 0.3 th/mm3 (0.0-0.9) 11/03/18 04:44 Eos # (Auto) 0.1 th/mm3 (0.0-0.4) 11/03/18 04:44 Baso # (Auto) 0.0 th/mm3 (0.0-0.2) 11/03/18 04:44 WBC Differential . 11/03/18 04:44 Differential Comment Auto diff final 11/03/18 04:44 ESR 29 mm/hr (0-20) H 11/02/18 06:38 PT 10.6 sec (9.8-11.6) 10/15/18 14:33 INR 1.0 Ratio 10/15/18 14:33 APTT 31.8 sec (23.4-31.7) H 10/15/18 14:33 Sodium 140 meq/L (136-145) 11/03/18 04:44 Potassium 4.1 meq/L (3.5-5.1) 11/03/18 04:44 Chloride 105 meq/L (98-107) 11/03/18 04:44 Carbon Dioxide 29.8 meq/L (21.0-32.0) 11/03/18 04:44 Anion Gap 5 meq/L (5-15) 11/03/18 04:44 BUN 15 mg/dL (7-18) 11/03/18 04:44 Creatinine 0.73 mg/dL (0.50-1.00) 11/03/18 04:44 Estimated GFR 87 mL/min (>89) L 11/03/18 04:44 Random Glucose 93 mg/dL (74-106) 11/03/18 04:44 Hemoglobin A1c 5.0 % (4.3-6.0) 11/03/18 04:44 Lactic Acid 1.2 mmol/L (0.4-2.0) 10/15/18 10:08 Calcium 8.4 mg/dL (8.5-10.1) L 11/03/18 04:44 Phosphorus 4.2 mg/dL (2.5-4.9) 11/03/18 04:44 Magnesium 1.7 mg/dL (1.5-2.5) 11/03/18 04:44 Total Bilirubin 0.2 mg/dL (0.2-1.0) 11/03/18 04:44 AST 46 U/L (15-37) H 11/03/18 04:44 ALT 30 U/L (10-53) 11/03/18 04:44 Alkaline Phosphatase 127 U/L (45-117) H 11/03/18 04:44 Troponin I Less than 0.02 ng/mL (0.02-0.05) L 10/15/18 20:10 C-Reactive Protein Less than 0.29 mg/dL (0.00-0.30) 11/02/18 06:38 Total Protein 7.7 g/dL (6.4-8.2) 11/03/18 04:44 Albumin 3.3 g/dL (3.4-5.0) L 11/03/18 04:44 Lipase 44 U/L (73-393) L 10/15/18 08:50 TSH 2.060 uIU/mL (0.358-3.740) 11/03/18 04:44 Free T4 0.93 ng/dL (0.76-1.46) 11/03/18 04:44 Urine Color Straw (Yellw/Straw) 10/30/18 16:30 Urine Clarity Clear (Clear) 10/30/18 16:30 Urine pH 8.0 (5.0-8.5) 10/30/18 16:30 Ur Specific [place] 1.010 (1.002-1.035) 10/30/18 16:30 Urine Protein Negative mg/dL (Neg-Trace) 10/30/18 16:30 Urine Glucose (UA) Negative mg/dL (Negative) 10/30/18 16:30 Urine Ketones Negative mg/dL (Negative) 10/30/18 16:30 Urine Occult Blood Negative (Negative) 10/30/18 16:30 Urine Nitrate Negative (Negative) 10/30/18 16:30 Urine Bilirubin Negative (Negative) 10/30/18 16:30 Urine Urobilinogen Less than 2 mg/dL (Less than 2) 10/30/18 16:30 Ur Leukocyte Esterase Negative (Negative) 10/30/18 16:30 Urine RBC Less than 1 /hpf (0-3) 10/30/18 16:30 Urine WBC Less than 1 /hpf (0-5) 10/30/18 16:30 Ur Squamous Epith Cells 4 /hpf (0-5) 10/30/18 16:30 Hyaline Casts 1 /lpf (0-3) 10/30/18 16:30 Micro UA Comment Culture not ind 10/30/18 16:30 Ur Microscopic Review Not Reportable 10/30/18 16:30 Urine Culture Comments Culture not ind 10/30/18 16:30 Clue Cells (Wet Prep) None seen (None Seen) 10/31/18 09:10 Trichomonas (Wet Prep) None seen (None Seen) 10/31/18 09:10 Yeast (Wet Prep) Present (None Seen) H 10/31/18 09:10 Vancomycin Trough 6.9 mcg/mL (5.0-10.0) 10/18/18 16:42 Urine Opiates Screen Neg (Neg) 10/15/18 09:35 Ur Barbiturates Screen Neg (Neg) 10/15/18 09:35 Ur Amphetamines Screen Neg (Neg) 10/15/18 09:35 U Benzodiazepines Scrn Neg (Neg) 10/15/18 09:35 Urine Cocaine Screen Pos (Neg) H 10/15/18 09:35 U Cannabinoids Screen Neg (Neg) 10/15/18 09:35 Chlam trachomat DNA PCR Not detected (Not Detect) 10/31/18 11:00 N.gonorrhoeae DNA (PCR) Not detected (Not Detect) 10/31/18 11:00 Impressions Chest X-Ray 10/15/18 08:38 CONCLUSION: Negative examination. Retroperitoneal Abscess Drainage 10/16/18 00:00 CONCLUSION: Uncomplicated CT guided drainage. Lumbar Spine MRI 10/18/18 00:00 CONCLUSION: 1. Left iliopsoas abscess partially visualized. Prior imaging shows this in better detail. 2. Abnormal signal extending from the left iliopsoas abscess towards and into the left L5 neural foramen consistent with phlegmon but no liquefaction to an abscess at this point. This may generate a left L5 radiculopathy. Abdomen X-Ray 10/24/18 00:00 CONCLUSION: Constipation Abdomen/Pelvis/Transvag US 10/24/18 00:00 CONCLUSION: Unremarkable sonographic appearance of the pelvis. Abdomen/Pelvis CT 11/01/18 00:00 CONCLUSION: 1. No residual fluid collection from the iliopsoas drain on the left. 2. Overall interval improvement. Labs on day of discharge: Labs from last 24 hours 11/03/18 11/03/18 11/03/18 04:44 04:44 04:44 WBC 4.7 RBC 3.85 L Hgb 11.0 L Hct 33.6 L MCV 87.1 MCH 28.4 MCHC 32.6 RDW 18.1 H Plt Count 312 D MPV 8.6 Neut % (Auto) 53.5 Lymph % (Auto) 37.4 [place] % (Auto) 5.9 Eos % (Auto) 3.0 Baso % (Auto) 0.2 Neut # (Auto) 2.5 Lymph # (Auto) 1.8 [place] # (Auto) 0.3 Eos # (Auto) 0.1 Baso # (Auto) 0.0 WBC Differential . Differential Comment Auto diff final Sodium 140 Potassium 4.1 Chloride 105 Carbon Dioxide 29.8 Anion Gap 5 BUN 15 Creatinine 0.73 Estimated GFR 87 L Random Glucose 93 Hemoglobin A1c 5.0 Calcium 8.4 L Phosphorus 4.2 Magnesium 1.7 Total Bilirubin 0.2 AST 46 H ALT 30 Alkaline Phosphatase 127 H Total Protein 7.7 Albumin 3.3 L TSH 2.060 Free T4 0.93 - Impressions ITS Impressions Chest X-Ray 10/15/18 08:38 CONCLUSION: Negative examination. Retroperitoneal Abscess Drainage 10/16/18 00:00 CONCLUSION: Uncomplicated CT guided drainage. Lumbar Spine MRI 10/18/18 00:00 CONCLUSION: 1. Left iliopsoas abscess partially visualized. Prior imaging shows this in better detail. 2. Abnormal signal extending from the left iliopsoas abscess towards and into the left L5 neural foramen consistent with phlegmon but no liquefaction to an abscess at this point. This may generate a left L5 radiculopathy. Abdomen X-Ray 10/24/18 00:00 CONCLUSION: Constipation Abdomen/Pelvis/Transvag US 10/24/18 00:00 CONCLUSION: Unremarkable sonographic appearance of the pelvis. Abdomen/Pelvis CT 11/01/18 00:00 CONCLUSION: 1. No residual fluid collection from the iliopsoas drain on the left. 2. Overall interval improvement. Discharge Plan - Discharge Disposition Patient Disposition: Discharge Home - Discharge Condition Condition: Good - Discharge Order Discharge Orders: Discharge Order (Routine); Ordered 11/03/18 Ordered By: Jemal Badillo ED Use Only Admit Order (Routine); Ordered 10/15/18 Ordered By: Eduardo Dietrich - Discharge Details Anticipated Discharge Date: 11/03/18 Discharge Comment: dc to home today follow up with infusion center daily for ROCEPHIN 2 GRAMS IV DAILY THROUGH 11-16-18 - Physicians Team Primary Care Provider: London Cary Attending Provider: Jemal Badillo Other Providers: María Hawk MD ; Abe Gallego MD
[2018-11-03 16:27] VITALS: BP 114/75; PULSE 90; TEMP 98.1; O2SAT 98
== END 2018-11-03 18:27 | disposition home or self-care (01) ==
LOC: NEPE 08:25 → NEDA 08:25 → NEPFCDU 12:04 → N04 10-16 21:28
PROVIDERS: ADMIT Hospitalist; ATTEND Hospitalist